=== PATIENT | female | born 1990 | race Native Hawaiian/Other Pacific Islander ===

== ENCOUNTER → 2018-09-23 13:13 | Outpatient (CLI) | payer OTHER, SELFPAY ==
[2018-09-23 14:04] LABS: HCG Quantitative /Beta subunit 186.61 mIU/mL
== END ==
PROVIDERS: PCP Family Medicine; Visit Provider Family Medicine
DX: N91.2 Amenorrhea, unspecified (principal)
CPT/HCPCS: 36415; 84702

== ENCOUNTER → 2018-09-26 07:09 | Outpatient (CLI) | payer OTHER, SELFPAY ==
[2018-09-26 09:05] LABS: HCG Quantitative /Beta subunit 627.81 mIU/mL
== END ==
PROVIDERS: PCP Family Medicine; Visit Provider Family Medicine
DX: N91.2 Amenorrhea, unspecified (principal)
CPT/HCPCS: 36415; 84702

== ENCOUNTER → 2018-10-19 17:07 | Outpatient (CLI) | payer OTHER, SELFPAY ==
[2018-10-19 18:38] LABS: Add Manual Diff / Slide Review NO; Basophils Absolute Auto 0 /uL (0-100); Basophils Percent Auto 0.5 % (0-2); Eosinophils Absolute Auto 200 /uL (0-450); Eosinophils Percent Auto 2.2 % (2-4); Hematocrit 40.5 % (36-46); Hemoglobin 13.5 g/dL (12.0-16.0); Lymphocytes Absolute Auto 2300 /uL (1100-4500); Lymphocytes Percent Auto 24.8 % (25-40); Mean Corpuscular HGB Conc 33.2 % (30-36); Mean Corpuscular Hemoglobin 30.5 PG (26-34); Mean Corpuscular Volume 91.8 fL (80-100); Monocytes Absolute Auto 600 /uL (0-900); Monocytes Percent Auto 6.8 % (3-14); Neutrophils Absolute Auto 6000 /uL (1500-7000); Neutrophils Percent Auto 65.7 % (50-75); Platelet Count 325 X10^3/uL (150-400); Red Blood Cell Count 4.41 X10^6/uL (4.0-5.2); White Blood Cell Count 9.1 X10^3/uL (4.5-11.0)
[2018-10-19 18:43] LABS: Hepatitis B Surface Antigen NEGATIVE s/c (NEGATIVE); Rubella Antibody IgG 32.8 IU/mL (>15)
[2018-10-19 18:50] LABS: Appearance Urine UA CLEAR; Bilirubin Urine UA NEGATIVE (NEGATIVE); Color Urine UA YELLOW; Glucose Urine UA NEGATIVE (Negative); Ketones Urine UA NEGATIVE (NEGATIVE); Leukocyte Esterase Urine UA NEGATIVE (NEGATIVE); Nitrite Urine UA NEGATIVE (Negative); Occult Blood Urine UA NEGATIVE (Negative); Protein Urine UA NEGATIVE (Negative); Specific Gravity Urine UA <=1.005 (1.000-1.035); Urobilinogen Urine UA 0.2 E.U./dL (0.2)
[2018-10-19 19:00] LABS: HIV 1 and 2 Antibody NEGATIVE (NEGATIVE); Hep C Virus Ab w/Reflex Quant NEGATIVE s/c (NEGATIVE)
[2018-10-21 11:18] LABS: RPR Screen Nonreactive (Nonreactive)
== END ==
PROVIDERS: PCP Family Medicine; Visit Provider Family Medicine
DX: Z34.91 Encounter for supervision of normal pregnancy, unspecified, first trimester (principal)
CPT/HCPCS: 36415; 80055; 81003; 86703; 86787; 86803; 86850; 86900; 86901; 87086

== ENCOUNTER 2018-12-05 18:23 | Emergency (ER) | payer OTHER, SELFPAY ==
[2018-12-05 18:40] VITALS: BP 130/82; PULSE 89; RESP 18; O2SAT 98
[2018-12-05 19:24] LABS: Bacteria Urine Few (2-10); Culture Indicated Urine Specimen Cultured; Mucus Urine 2+ (Negative); RBC Urine 0-1/HPF (0-5/HPF); Squamous Epithelial Cell Urine 5-10 /HPF; WBC Urine 1-5/HPF (0-5/HPF)
[2018-12-05 19:32] LABS: Influenza A and B by PCR Rapid Negative (Negative)
--- NOTE | 2018-12-05 20:58 | ED_ITS ---
HPI - Nausea/Vomiting/Diarrhea General Chief complaint: Nausea/Vomiting/Diarrhea Stated complaint: 15 WKS NOT EATING VOMITING ABD PAIN Time Seen by Provider: 12/05/18 20:49 Source: patient Mode of arrival: ambulatory Limitations: no limitations History of Present Illness HPI Narrative: Fifteen is a 15 week EGA has had an uncomplicated up to this point. Approximately 1 week ago started having a decrease in appetite. Has had occasional nausea but no vomiting. Has Zofran at home. Returns today because she has not been drinking anything. She states it is not because of nausea or vomiting but because she has no appetite. Is having some cramping however no vaginal bleeding or loss of fluid. No fevers. No abdominal pain. Related Data Home Medications Medication Instructions Recorded Confirmed 1 tab PO DAILY 10/19/18 12/05/18 vitamin,calcium,jxcmwrwz-nldy-rsage acid tablet Previous Rx's Medication Instructions Recorded ondansetron 8 mg disintegrating 8 mg PO BID-TID PRN #12 tab 11/08/18 tablet Allergies Allergy/AdvReac Type Severity Reaction Status Date / Time No Known Drug Allergies Allergy Verified 12/05/18 18:46 Review of Systems Constitutional Denies fever(s) and Denies headache(s) ENT Ears, Nose, Mouth, and Throat: Denies vertigo and Denies headache(s) Cardiovascular Denies chest pain and Denies dyspnea Respiratory Denies dyspnea Gastrointestinal Gastrointestinal: Denies change in stool character, Reports cramping, Denies diarrhea, Denies nausea and Denies vomiting Comments: Decreased in appetite Genitourinary Denies dysuria, Denies pelvic pain, Denies urinary urgency and Denies vaginal discharge Integumentary/Breasts Denies rash Neurologic Denies vertigo and Denies headache(s) Hematologic/Lymphatic Denies easy bleeding and Denies easy bruising [facility] Medical History Healthy adult (Acute) Social History Smoking Status: Never smoker Social History Smoking Status: Never smoker Exam Initial Vital Signs Initial Vital Signs: Vital Signs Pulse Rate 89 12/05/18 18:40 Respiratory Rate 18 12/05/18 18:40 Blood Pressure 130/82 12/05/18 18:40 Pulse Oximetry 98 12/05/18 18:40 Const General: cooperative, healthy appearing, comfortable, well developed, well groomed and No acute distress Orientation: alert, awake and oriented x3 HENMT Head: normal to inspection and normocephalic Resp Effort & Inspection: normal respiratory effort Cardio Rate: regular rate Rhythm: regular rhythm GI Other: Gravid abdomen Skin Lesions: no lesions Rashes: no rashes Neuro General: alert, awake and oriented x3 Psych Appearance: grossly normal and well kempt Course Orders Ordered: ED Orders 12/05/18 19:00 Urine Culture Stat Urine Microscopic Stat 12/05/18 19:11 Influenza A and B by PCR Rapid Stat Discontinued Medications Sodium Chloride (Normal Saline 0.9%) 1,000 mls @ 1,000 mls/hr IV BOLUS ONE Stop: 12/05/18 22:22 Last Infusion: 12/05/18 22:54 Dose: 0 mls/hr Admin: 12/05/18 21:45 Dose: 1,000 mls/hr Vital Signs - 8 hr 12/05/18 22:41 Pulse Rate 73 Respiratory Rate 16 Blood Pressure [Right Arm] 113/69 Pulse Oximetry 100 MDM - Nausea/Vomiting/Diarrhea Lab Data Attestation: I reviewed the patient's lab results. Lab Results 12/05/18 12/05/18 Range/Units 19:00 19:11 Urine RBC 0-1/hpf (0-5/HPF) Urine WBC 1-5/hpf (0-5/HPF) Ur Squamous Epith Cells 5-10 /hpf H Urine Bacteria Few (2-10) H (None) Urine Mucus 2+ H (Negative) Ur Culture Indicated? Specimen cultured Influenza A & B (PCR) Negative (Negative) Urine Dip Bedside Urine Glucose Negative Bedside Urine Bilirubin + 1 Bedside Urine Ketone +++ 80 Urine Specific [place] 1.020 Bedside Urine Occult Blood - Negative Bedside Urine pH 6.0 Bedside Urine Protein +/- 15 Bedside Urine Urobilinogen - Negative Bedside Urine Nitrite - Negative Bedside Urine Leukocytes +/- 15 Esterase MDM Narrative Medical decision making narrative: Patient with a known IUP. No vaginal bl eeding. Stated that her cramping improved with fluids. She did have ketones in the urine which goes with dehydration. Patient has Zofran at home. Informed her that she needed to increase her fluid intake. Informed her she needs to take the Zofran for any nausea. Informed that she needed to contact her OB doctor for follow-up. She expressed understanding and agreement with plan. Discharge Plan Departure Patient Disposition: Home Clinical Impression: Dehydration, Nausea Qualifiers: Weeks of gestation: unspecified Qualified Code(s): Z34.90 - Encounter for supervision of normal , unspecified, unspecified trimester Discharge Date/Time: 12/05/18 22:55 Interventions: ED Discharge Assessment Last Done: 12/05/18 22:55 Instructions: DI for Dehydration -- Adult Activity Restrictions/Additional Instructions: Continue to increase your fluid intake. Contact your OB provider for a follow- up. Return to the emergency department for any new or worsening symptoms Prescriptions: No Action ondansetron 8 mg tablet,disintegrating 8 mg PO BID-TID PRN (Reason: nausea and vomiting) Qty: 12 RF: 0 prenat.vits,michele,lkx-mgif-lviwt tablet 1 tab PO DAILY RF: 0 Referrals: Vivi Crcokett MD [Primary Care Provider] -
[2018-12-05] MEDS: SODIUM CHLORIDE 0.9% 1,000 ML 1000 ML IV (21:45)
[2018-12-05 22:41] VITALS: BP 113/69; PULSE 73; RESP 16; O2SAT 100
== END 2018-12-05 22:55 | disposition home or self-care (01) ==
PROVIDERS: Emergency Provider Emergency Medicine; PCP Family Medicine
DX: E86.0 Dehydration (principal); R11.2 Nausea with vomiting, unspecified; Z34.92 Encounter for supervision of normal pregnancy, unspecified, second trimester; Z3A.15 15 weeks gestation of pregnancy
CPT/HCPCS: 81003; 81015; 87086; 87400; 96360; 99283

== ENCOUNTER → 2018-12-20 15:30 | Outpatient (CLI) | payer OTHER, SELFPAY ==
[2018-12-27 12:51] LABS: AFP, Serum 33.1 ng/mL; Calc Gestational Age 17.6; Cigarette Smoker NOT GIVEN; Donated Egg N; Donor Egg Age NOT GIVEN; Estriol, Free 0.88 ng/mL; Inhibin A, Dimeric 104 pg/mL; Maternal Ethnicity NOT GIVEN; Maternal Weight 156 lbs; Number of Fetuses 1; Previous Pregnancy Down Syndro N; hCG, MoM 1.27; hCG, Serum 31.8 IU/mL
== END ==
PROVIDERS: PCP Family Medicine; Visit Provider Family Medicine
DX: Z34.02 Encounter for supervision of normal first pregnancy, second trimester (principal); Z3A.17 17 weeks gestation of pregnancy
CPT/HCPCS: 36415; 82105; 82677; 84702; 86336

== ENCOUNTER → 2019-01-09 15:00 | Outpatient (CLI) | payer OTHER, SELFPAY ==
--- NOTE | 2019-01-09 15:01 | DI.US.S_ITS ---
PROCEDURE: US OB >= 14 WEEKS FETUS INDICATIONS: ANATOMY SCAN OUTSIDE/PRIOR DATING DATA: Last menstrual period (LMP): 08/19/19. LMP-based estimated date of delivery (DEBBIE): 05/26/19. First dating scan (date and location): 10/25/18 performed at [facility]. Estimated date of delivery (DEBBIE) from first dating scan: 05/26/19. TECHNIQUE: Real-time scanning was performed of the fetus, with image documentation and biometric measurements. Endovaginal scanning: No [facility], 10:46. FINDINGS: General: A single living intrauterine gestation is present. Presentation: Transverse. Placenta: Placental position is anterior, and low lying with the inferior margin roughly 2.6 cm above the internal cervical os Amniotic fluid index: 15.7 cm, normal range is 5-24 cm. heart rate: 158 beats per minute. Maternal cervical canal: 3.4 cm long. Normal lower limit is 2.5 cm. biometrics: Biparietal diameter: 20 weeks 5 days Head circumference: 20 weeks 3 days Abdominal circumference: 21 weeks Femur length: 20 weeks 0 days Estimated gestational age from initial scan: 20 weeks 3 days Composite gestational age from present scan: 20 weeks 4 days Estimated weight and percentile: 372 g; 61st percentile Measurement variability for biometric dating: +/- 7 days from 14 weeks to 15 weeks 6 days gestation, +/- 10 days from 16 weeks to 21 weeks 6 days gestation, +/- 2 weeks from 22 weeks to 27 weeks 6 days gestation, +/- 3 weeks for 28 weeks gestation or later. weight reference: 4500 g or EFW >90/95% is considered macrosomia or large for gestational age. EFW <10% is small for gestational age. EFW 5% or less is considered intra-uterine growth restriction. Anatomic survey: Neuro: Ventricles are non-dilated at less than 10 mm. Cisterna magna is normal at 3-11 mm. Cerebellum is normal in size and morphology. Nuchal skin fold: Normal at less than 6 mm between 14-21 weeks gestational age. Face: Nose and lips, facial profile are normal. Spine: No evidence for spina bifida. Heart: 4-chambered heart is present, with normal ventricular outflow tracts. Diaphragm: Diaphragm is intact. Stomach: Left-sided stomach is present. Kidneys: No hydronephrosis. Normal is less than 5 mm in 2nd trimester, less than 7 mm in 3rd trimester. Cord: 3-vessel cord has orthotopic insertion. Bladder: Normal in size. Extremities: All 4 extremities identified. IMPRESSION: 1. Single living IUP redemonstrated and interval growth is normal 2. Normal anatomic survey. 3. Low lying placenta. Followup recommended. Dictated by: Aubrey Torres [facility] Interpreted: Angeles Handy MD on 01/09/2019 at 16:43 Approved by: Angeles Handy MD, PhD on 01/09/2019 at 18:40
== END ==
PROVIDERS: PCP Family Medicine; Visit Provider Family Medicine
DX: Z34.01 Encounter for supervision of normal first pregnancy, first trimester (principal); Z3A.20 20 weeks gestation of pregnancy
CPT/HCPCS: 76811

== ENCOUNTER → 2019-02-28 15:20 | Outpatient (CLI) | payer OTHER, SELFPAY ==
[2019-02-28 17:23] LABS: Hematocrit 37.5 % (36-46); Hemoglobin 12.4 g/dL (12.0-16.0)
[2019-02-28 17:49] LABS: GTT (PREG) 1 Hour PP 50gm Dose 109 mg/dL (76-139)
== END ==
PROVIDERS: PCP Family Medicine; Visit Provider Family Medicine
DX: Z34.02 Encounter for supervision of normal first pregnancy, second trimester (principal); Z3A.25 25 weeks gestation of pregnancy
CPT/HCPCS: 36415; 82950; 85014; 85018

== ENCOUNTER 2019-03-13 13:24 | Outpatient (CLI) | payer OTHER, SELFPAY ==
[2019-03-13 14:05] LABS: RBC Urine None Seen (0-5/HPF)
[2019-03-13 14:15] LABS: Appearance Urine UA CLEAR; Bilirubin Urine UA NEGATIVE (NEGATIVE); Color Urine UA YELLOW; Glucose Urine UA NEGATIVE (Negative); Ketones Urine UA NEGATIVE (NEGATIVE); Leukocyte Esterase Urine UA 2+ (NEGATIVE); Nitrite Urine UA NEGATIVE (Negative); Occult Blood Urine UA NEGATIVE (Negative); Protein Urine UA NEGATIVE (Negative); Urobilinogen Urine UA 0.2 E.U./dL (0.2)
[2019-03-13 14:28] LABS: Squamous Epithelial Cell Urine 1-5 /HPF (0-5/HPF); WBC Urine 1-5/HPF (0-5/HPF)
[2019-03-13 14:29] LABS: Bacteria Urine Few (2-10); Culture Indicated Urine Specimen Cultured
--- NOTE | 2019-03-13 14:51 | PM.OBTRLD ---
Visit Information Visit Information Date of evaluation: 03/13/19 Primary OB Provider: Vivi Crockett Reason for Evaluation: Yes pre-term labor and Yes rule out labor Comments/Additional reasons for admission: Pt with persistent cramping for the last 24hrs. Initially intermittent, now more constant. No vaginal bleeding, LOF. PFSH Social History Smoking Status: Never smoker Social History Smoking Status: Never smoker Objective Labs Labs: Laboratory Results - last 24 hr 03/13/19 13:40 Urine Color Yellow Urine Appearance Clear Urine pH 7.0 Ur Specific [place] 1.010 Urine Protein Negative Urine Glucose (UA) Negative Urine Ketones Negative Urine Occult Blood Negative Urine Nitrate Negative Urine Bilirubin Negative Urine Urobilinogen 0.2 Ur Leukocyte Esterase 2+ H Urine RBC None seen Urine WBC 1-5/hpf Ur Squamous Epith Cells 1-5 /hpf Urine Bacteria Few (2-10) H Ur Culture Indicated? Specimen cultured Evaluation Evaluation Baseline heart rate: 150 Variability: Moderate (11-25) monitor accelerations: Present monitor decelerations: Absent Category of Tracing: I Laboratory results: Laboratory Tests 03/13/19 13:40 Urine Color Yellow Urine Appearance Clear Urine pH 7.0 Ur Specific [place] 1.010 Urine Protein Negative Urine Glucose (UA) Negative Urine Ketones Negative Urine Occult Blood Negative Urine Nitrate Negative Urine Bilirubin Negative Urine Urobilinogen 0.2 Ur Leukocyte Esterase 2+ H Urine RBC None seen Urine WBC 1-5/hpf Ur Squamous Epith Cells 1-5 /hpf Urine Bacteria Few (2-10) H Ur Culture Indicated? Specimen cultured Diagnosis, Plan/Disposition Final Diagnosis (1) Cramping affecting , antepartum: Current Visit: No Status: Acute (2) UTI (urinary tract infection): Current Visit: No Status: Acute Plan/Disposition Plan: Possible UTI on U/A. Due to symptoms, will treat empirically with Nitrofurantoin. Most likely cause of cramping. No contractions on monitoring. FHT reassuring. Stable for d/c home. OB Disposition: home
== END 2019-03-13 14:58 | disposition home or self-care (01) ==
LOC: LABOR 14:29 → OB 03-20 16:23
PROVIDERS: PCP Family Medicine; Visit Provider Obstetrics & Gynecology
DX: O26.893 Other specified pregnancy related conditions, third trimester (principal); R10.9 Unspecified abdominal pain; N39.0 Urinary tract infection, site not specified; Z3A.29 29 weeks gestation of pregnancy
CPT/HCPCS: 59025; 81001; 87077; 87086; G0378; G0379

== ENCOUNTER → 2019-04-03 10:14 | Outpatient (CLI) | payer OTHER, SELFPAY ==
--- NOTE | 2019-04-03 10:15 | DI.US.S_ITS ---
PROCEDURE: US OB LIMITED INDICATIONS: low lying placenta OUTSIDE/PRIOR DATING DATA: Last menstrual period (LMP): 08/19/19. LMP-based estimated date of delivery (DEBBIE): 05/26/19. First dating scan (date and location): 10/25/18. Estimated date of delivery (DEBBIE) from first dating scan: 05/25/19. TECHNIQUE: Real-time scanning was performed of the fetus, with image documentation. Endovaginal scanning: Not necessary for this study COMPARISON: None. FINDINGS: A single living intrauterine gestation is present. Presentation: Vertex. Placenta: Placental position is anterior, without previa. Lower placental edge 0.5 to 3 cm from internal cervical os qualifies as low lying placenta. Marginal previa is defined as lower edge 0 to 0.5 mm from internal os. Amniotic fluid index: 12.0 cm, normal range is 5-24 cm. heart rate: 149 beats per minute. Maternal cervical canal: 3.3 cm long. Normal lower limit is 2.5 cm. IMPRESSION: Placental tip is 4.5 cm from the internal os and cervical canal. Current presentation is vertex. No anomaly seen. Dictated by: Dashawn Morales M.D. on 04/03/2019 at 12:26 Approved by: Dashawn Morales M.D. on 04/03/2019 at 12:28
== END ==
PROVIDERS: PCP Family Medicine; Visit Provider Family Medicine
DX: O44.43 Low lying placenta NOS or without hemorrhage, third trimester (principal); Z3A.32 32 weeks gestation of pregnancy
CPT/HCPCS: 76815

== ENCOUNTER → 2019-04-27 12:27 | Outpatient (CLI) | payer OTHER, SELFPAY ==
[2019-04-28 12:37] LABS: Strep Grp B PCR NEG for Grp B Strep
== END ==
PROVIDERS: PCP Family Medicine; Visit Provider Family Medicine
DX: Z3A.36 36 weeks gestation of pregnancy (principal)
CPT/HCPCS: 87653

== ENCOUNTER 2019-06-01 06:11 | Inpatient (IN) | payer OTHER, SELFPAY ==
--- NOTE | 2019-06-01 07:32 | P.HP_ITS ---
History of Present Illness History of Present Illness Date Patient Seen: 06/01/19 Time Patient Seen: 07:32 Chief complaint: Labor Narrative: Patient is a 29-year-old G1 para 0 patient is here with her [facility] [place]. Patient has a final estimated due date of 05/26/2019 consistent with LMP and early ultrasound. Patient establish care at 9 weeks and had routine follow-up. Patient had a total weight gain of approximately 30 lb during . 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 Patient has been on acyclovir since 30/6 weeks. laboratory testing shows O-positive blood type antibody screen negative hematocrit 40.5 hemoglobin 13.5 platelet count 235 ER L nonreactive urine culture negative hepatitis-B surface antigen negative HIV negative rubella immune hep C negative varicella immune inject it testing early on was negative. Twenty week ultrasound shows intrauterine with low-lying placenta which is resolved. GBS status is negative at 36 weeks. Patient has been having intermittent contractions and cramping for the last week. Last cervical exam in the office showed her to be 2 cm 70% effaced -2 station mid soft. She has no complaints of headache dizziness fevers or chills. Patient has no concerns with vaginal lesions or outbreaks. No headaches. Mild swelling. Patient History Medical History Healthy adult (Acute) Social History Smoking Status: Never smoker Family & Social History Tobacco & Substance use: Smoking Status Never smoker alcohol intake frequency other Substance Use Type does not use Meds Home Medications and Allergies Home Medications Medication Instructions Recorded Confirmed Type prenat.vits,michele,elr-xbzt-hvgwm 1 tab PO DAILY 10/19/18 05/30/19 History acyclovir 400 mg tablet 400 mg PO BID #60 tab 03/30/19 05/30/19 Rx Breast pump #1 ea 04/27/19 05/30/19 Rx Allergies Allergy/AdvReac Type Severity Reaction Status Date / Time No Known Drug Allergies Allergy Verified 05/30/19 10:43 Exam Vital Signs (past 8 hours): . General: Alert no apparent distress. Affect is appropriate. Olegario it is uncomfortable. HEENT: Neck is supple without lymphadenopathy pupils equal round and reactive. Cardio: S1-S2 regular rate and rhythm. Respiratory: Lungs clear to auscultation. Abdomen: Gravid. Extremities: Normal deep tendon reflexes trace edema. [place]: Intermittent contractions heart tones: Category 1 heart tones 140 Assessment & Plan Assessment & Plan narrative: 29-year-old female G1 para 0 estimated due date of 05/26/2019 which puts her at 40 and 4 7 weeks for induction of labor. Induction consent form was obtained and signed. Discussed risks and complications of labor induction in a prime up. Which include increased risk of operative delivery. Due to her favor ability of her [place] score. Patient will be and cyst with Pitocin. Pitocin complications and risks were reviewed with the patient. Induction orders were written for. Patient laboratory tests were drawn. Consents were signed. Proceed with labor induction.
[2019-06-01 09:35] LABS: Add Manual Diff / Slide Review NO; Basophils Absolute Auto 0 /uL (0-100); Basophils Percent Auto 0.5 % (0-2); Eosinophils Absolute Auto 100 /uL (0-450); Eosinophils Percent Auto 1.4 % (2-4); Hematocrit 39.2 % (36-46); Lymphocytes Absolute Auto 1800 /uL (1100-4500); Mean Corpuscular HGB Conc 33.3 % (30-36); Mean Corpuscular Hemoglobin 30.5 PG (26-34); Mean Corpuscular Volume 91.7 fL (80-100); Monocytes Absolute Auto 900 /uL (0-900); Monocytes Percent Auto 8.3 % (3-14); Neutrophils Absolute Auto 7500 /uL (1500-7000); Neutrophils Percent Auto 72.8 % (50-75); Platelet Count 217 X10^3/uL (150-400); Red Blood Cell Count 4.27 X10^6/uL (4.0-5.2); Red Cell Distribution Width 13.8 % (11.6-14.8); White Blood Cell Count 10.3 X10^3/uL (4.5-11.0)
[2019-06-01] MEDS: LACTATED RINGERS 1,000 ML 100 ML IV ×2 (09:45→16:41)
[2019-06-01] MEDS: OXYTOCIN PREMIX 30 UNIT/500 ML PLAST..BAG IV (09:45)
--- NOTE | 2019-06-01 11:24 | PM.PN.1 ---
Subjective Subjective Date Patient Seen: 06/01/19 Time Patient Seen: 11:24 Interval history: Patient seen and evaluated doing well. On the birthing ball. 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 On 9 units of Pitocin. No leakage of fluid. No amniotomy yet. Vital signs are stable. Contractions are mildly uncomfortable. Objective Labs Result Diagrams: 06/01/19 09:20 Labs: Laboratory Results - last 24 hr 06/01/19 06/01/19 09:20 09:20 WBC 10.3 RBC 4.27 Hgb 13.0 Hct 39.2 MCV 91.7 MCH 30.5 MCHC 33.3 RDW 13.8 Plt Count 217 Neut % (Auto) 72.8 Lymph % (Auto) 17.0 L [place] % (Auto) 8.3 Eos % (Auto) 1.4 L Baso % (Auto) 0.5 Neut # (Auto) 7500 H Lymph # (Auto) 1800 [place] # (Auto) 900 Eos # (Auto) 100 Baso # (Auto) 0 Blood Type O Positive Antibody Screen Negative
[2019-06-01 12:00] VITALS: BP 115/74
--- NOTE | 2019-06-01 13:37 | P.PN_ITS ---
Subjective Subjective Date Patient Seen: 06/01/19 Time Patient Seen: 13:37 Interval history: Patient seen and evaluated few times. Patient evaluated at 12:15 p.m. category 1 tracing. 3-4 cm. 80% effaced -1 station mid position. Had amniotomy of clear fluid without difficulty. Patient's vital signs are stable. Olegario on Pitocin. Re-evaluation at 1:30 a.m.. Patient is doing well uncomfortable. Still leaking fluids. heart tracing category 1. Vital signs normal temperature afebrile. Contemplating epidural versus fentanyl for pain control. Exam Vital Signs (past 8 hours): - 06/01/19 12:00 Blood Pressure 115/74 Objective Labs Result Diagrams: 06/01/19 09:20 Labs: Laboratory Results - last 24 hr 06/01/19 06/01/19 09:20 09:20 WBC 10.3 RBC 4.27 Hgb 13.0 Hct 39.2 MCV 91.7 MCH 30.5 MCHC 33.3 RDW 13.8 Plt Count 217 Neut % (Auto) 72.8 Lymph % (Auto) 17.0 L [place] % (Auto) 8.3 Eos % (Auto) 1.4 L Baso % (Auto) 0.5 Neut # (Auto) 7500 H Lymph # (Auto) 1800 [place] # (Auto) 900 Eos # (Auto) 100 Baso # (Auto) 0 Blood Type O Positive Antibody Screen Negative
[2019-06-01 15:29] VITALS: TEMP 36.6
[2019-06-01] MEDS: fentaNYL 100 MCG/2 ML INJ 50 MCG IV (15:29)
--- NOTE | 2019-06-01 17:10 | P.PN_ITS ---
Subjective Subjective Date Patient Seen: 06/01/19 Time Patient Seen: 17:10 Interval history: Labor progress update. Patient is doing well. Had a dose of fentanyl. Provided mild relief. Patient became more uncomfortable. Epidural was provided. Vital signs are stable afebrile on mom. heart tones category 1 tracing. Olegario well. 8 units of pit. Recent cervical exam for and 0.5 cm -1 station Exam Vital Signs (past 8 hours): - 06/01/19 12:00 06/01/19 15:29 Temperature 97.9 F Blood Pressure 115/74 Objective Labs Result Diagrams: 06/01/19 09:20 Labs: Laboratory Results - last 24 hr 06/01/19 06/01/19 09:20 09:20 WBC 10.3 RBC 4.27 Hgb 13.0 Hct 39.2 MCV 91.7 MCH 30.5 MCHC 33.3 RDW 13.8 Plt Count 217 Neut % (Auto) 72.8 Lymph % (Auto) 17.[address] [place] % (Auto) 8.3 Eos % (Auto) 1.4 L Baso % (Auto) 0.5 Neut # (Auto) 7500 H Lymph # (Auto) 1800 [place] # (Auto) 900 Eos # (Auto) 100 Baso # (Auto) 0 Blood Type O Positive Antibody Screen Negative
--- NOTE | 2019-06-01 19:53 | PM.PN.1 ---
Subjective Subjective Date Patient Seen: 06/01/19 Time Patient Seen: 19:28 Interval history: Patient complete. Could comfortable. Just had a rib will assess of epidural. Vital signs are stable. Afebrile. Patient anne marie. On 3 M use of Pitocin. Category 1 tracing. heart rate 130. Clear amniotic fluid. Jason catheter in place. Trial of pushing. Continue with expectant management. Exam Vital Signs (past 8 hours): - 06/01/19 12:00 06/01/19 15:29 Temperature 97.9 F Blood Pressure 115/74 Objective Labs Result Diagrams: 06/01/19 09:20 Labs: Laboratory Results - last 24 hr 06/01/19 06/01/19 09:20 09:20 WBC 10.3 RBC 4.27 Hgb 13.0 Hct 39.2 MCV 91.7 MCH 30.5 MCHC 33.3 RDW 13.8 Plt Count 217 Neut % (Auto) 72.8 Lymph % (Auto) 17.0 L [place] % (Auto) 8.3 Eos % (Auto) 1.4 L Baso % (Auto) 0.5 Neut # (Auto) 7500 H Lymph # (Auto) 1800 [place] # (Auto) 900 Eos # (Auto) 100 Baso # (Auto) 0 Blood Type O Positive Antibody Screen Negative
[2019-06-01] MEDS: LIDOCAINE 1% 20 ML (22:05)
--- NOTE | 2019-06-01 22:15 | P.PCN_ITS ---
Procedures Date/Time Date of procedure: 06/01/19 Time of procedure: 22:15 General Procedure description: Stage I of labor approximately 11 hours. Patient was brought of the hospital at 41 weeks gestational age for induction of labor. Patient had Pitocin augmentation. She had a good contraction pattern she had amniotomy at 3 cm with clear fluid. Patient received an epidural at 4.5 cm. And patient became complete at approximately 7:30 p.m.. Patient during stage I of labor had adequate contractions. Good progressed through stage I category 1 tracing. There was 1 small episode of pseudo sinus side all pattern. Which was changed with Pitocin reduction and position changes. Mom received a dose of fentanyl during the labor process. And eventually received an epidural. She had good anesthesia results with epidural. Stage II labor 2 hours and 10 minutes approximately. His stage 1 at the time of pushing with good progression doing stage II of labor. Patient had category 1 heart tracings throughout. Mom pushed to deliver a viable male over intact perineum. Baby was born in the occiput anterior position. There was no nuchal cord. There is easily delivery of the shoulders and body. Time of delivery baby was placed on mother's abdomen. Did delayed cord clamping. Baby was vigorous and crying. Apgars were 9 and 9. Stage III approximately 5 minutes. Delivery of intact placenta with three- vessel cord. Repair of first-degree midline perineal tear without complication in the usual fashion. Afterwards mom and baby were resting comfortably estimated blood loss 250 cc.
[2019-06-01 23:44] VITALS: TEMP 37.2
[2019-06-01] MEDS: IBUPROFEN 600 MG TABLET PO (23:44)
[2019-06-02] MEDS: HYDROCODONE/ACET 5/325 TABLET 1 TAB PO ×5 (03:08→21:22)
[2019-06-02] MEDS: IBUPROFEN 600 MG TABLET PO ×3 (06:35→19:19)
[2019-06-02 06:54] LABS: Hematocrit 31.3 % (36-46); Hemoglobin 10.7 g/dL (12.0-16.0)
--- NOTE | 2019-06-02 08:23 | P.PN_ITS ---
Subjective Subjective Date Patient Seen: 06/02/19 Time Patient Seen: 08:23 Interval history: day 1. 29-year-old status post vaginal delivery doing well. Hemoglobin hematocrit are stable. Vital signs are stable. Patient is eating. Ambulating positive urination no bowel movements pain is well controlled. Breast-feeding. Exam Narrative Exam Narrative: General: Alert no apparent distress. Affect is appropriate. Olegario it is uncomfortable. HEENT: Neck is supple without lymphadenopathy pupils equal round and reactive. Cardio: S1-S2 regular rate and rhythm. Respiratory: Lungs clear to auscultation. Abdomen: Uterus firm. Extremities: Normal deep tendon reflexes trace edema. Objective Labs Result Diagrams: 06/02/19 06:36 Labs: Laboratory Results - last 24 hr 06/01/19 06/01/19 06/02/19 09:20 09:20 06:36 WBC 10.3 RBC 4.27 Hgb 13.0 10.7 L Hct 39.2 31.3 L MCV 91.7 MCH 30.5 MCHC 33.3 RDW 13.8 Plt Count 217 Neut % (Auto) 72.8 Lymph % (Auto) 17.0 L [place] % (Auto) 8.3 Eos % (Auto) 1.4 L Baso % (Auto) 0.5 Neut # (Auto) 7500 H Lymph # (Auto) 1800 [place] # (Auto) 900 Eos # (Auto) 100 Baso # (Auto) 0 Blood Type O Positive Antibody Screen Negative Assessment & Plan Assessment & Plan narrative: day 1. Vaginal delivery Ambulating Eating Positive bowel movements Breast-feeding Pain is well controlled as well as bleeding hemoglobin hematocrit stable.
[2019-06-02] MEDS: DOCUSATE 250 MG CAPSULE PO (09:46)
[2019-06-02] MEDS: PRENATAL VIT,CALC/IRON/FOLIC 1 TABLET 1 TAB PO (09:46)
[2019-06-02] MEDS: ACYCLOVIR 400 MG TABLET PO ×2 (09:47→21:22)
[2019-06-03] MEDS: IBUPROFEN 600 MG TABLET PO ×2 (01:04→07:18)
[2019-06-03] MEDS: HYDROCODONE/ACET 5/325 TABLET 1 TAB PO ×3 (01:05→09:46)
[2019-06-03] MEDS: PRENATAL VIT,CALC/IRON/FOLIC 1 TABLET 1 TAB PO (09:45)
[2019-06-03] MEDS: DOCUSATE 250 MG CAPSULE PO (09:46)
[2019-06-03] MEDS: ACYCLOVIR 400 MG TABLET PO (09:46)
--- NOTE | 2019-06-03 09:47 | PM.DS.1 ---
History of Present Illness History of Present Illness Chief complaint: maternity Narrative: Patient is a 29-year-old G1 para 0 patient is here with her partner in the Center. Patient has a final estimated due date of 05/26/2019 consistent with LMP and early ultrasound. Patient establish care at 9 weeks and had routine follow-up. Patient had a total weight gain of approximately 30 lb during . 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 Patient has been on acyclovir since 30/6 weeks. laboratory testing shows O-positive blood type antibody screen negative hematocrit 40.5 hemoglobin 13.5 platelet count 235 ER L nonreactive urine culture negative hepatitis-B surface antigen negative HIV negative rubella immune hep C negative varicella immune inject it testing early on was negative. Twenty week ultrasound shows intrauterine with low-lying placenta which is resolved. GBS status is negative at 36 weeks. Patient has been having intermittent contractions and cramping for the last week. Last cervical exam in the office showed her to be 2 cm 70% effaced -2 station mid soft. She has no complaints of headache dizziness fevers or chills. Patient has no concerns with vaginal lesions or outbreaks. No headaches. Mild swelling. Discharge Providers Provider Date of admission: 06/01/19 06:11 Discharge Date: 06/03/19 Primary care physician: Vivi Crockett MD Consults: 06/01/19 23:03 Consult to Public Relations Senior Associate Routine Comment: Discharge provider: Castro Li MD Summary Hospital Course Discharge Diagnosis: 29-year-old G1 para 1 with delivery of viable male vaginally without complications Induction of labor Hospital Course: Patient was admitted to the hospital for induction of labor. She was almost 41 weeks gestational age. She had induction with Pitocin. Went on to deliver vaginally a male infant. Apgars 9 and 9 weight 8 lb 4 oz. day 1. Patient was eating ambulating normal urination. Patient's bleeding and pain were well controlled. day 2. Breast-feeding was going okay. Urination and pain was well controlled bleeding was normal. Patient had no signs of lower extremity calf tenderness. Patient was afebrile and vital signs were stable. Exam Narrative Exam Narrative: Vitals: [Pulse 68 respiratory rate 18 temperature 9 8.8 input 2400 output 1800]. General: Alert no apparent distress. Affect is appropriate. Olegario it is uncomfortable. HEENT: Neck is supple without lymphadenopathy pupils equal round and reactive. Cardio: S1-S2 regular rate and rhythm. Respiratory: Lungs clear to auscultation. Abdomen: Uterus firm. Incision clean dry and intact. Extremities: Normal deep tendon reflexes trace edema. Objective Labs Result Diagrams: 06/02/19 06:36 Discharge Plan Discharge Plan Patient Disposition: Home Discharge Med Rec/Prescriptions Prescriptions: New ibuprofen 600 mg Tablet 600 mg PO Q6HR PRN (Reason: Pain, Mild (1-3)) Qty: 30 RF: 0 docusate sodium 250 mg Capsule 250 mg PO DAILY Qty: 20 RF: 0 Continued acyclovir 400 mg tablet 400 mg PO BID Qty: 60 RF: 2 (DME) Breast pump Qty: 1 RF: 0 prenat.vits,michele,nag-iune-zmura tablet 1 tab PO DAILY RF: 0 Follow up/Referrals: Vivi Crockett MD [Primary Care Provider] - Visit Report/Discharge Packet Visit Report Forms: Stroke Signs & Symptoms Discharge Data Primary Care Provider: Vivi Crockett
[2019-06-03 11:47] VITALS: BP 107/60; PULSE 80; RESP 17; TEMP 37
== END 2019-06-03 13:15 | disposition home or self-care (01) | DRG 807 ==
PROVIDERS: Family Medicine; Admitting Provider Family Medicine; PCP Family Medicine; Visit Provider Family Medicine
DX: O98.32 Other infections with a predominantly sexual mode of transmission complicating childbirth (principal); Z37.0 Single live birth; Z3A.40 40 weeks gestation of pregnancy; B00.9 Herpesviral infection, unspecified; O70.0 First degree perineal laceration during delivery
CPT/HCPCS: 01967; 36415; 59050; 59400; 59409; 85014; 85018; 85025; 86850; 86900; 86901; G0379; J2590; J3010

== ENCOUNTER 2019-11-04 08:14 | Emergency (ER) | payer OTHER, SELFPAY ==
[2019-11-04 08:14] VITALS: BP 127/78; PULSE 93; RESP 16; TEMP 36.9; O2SAT 100; BMI 27.6
--- NOTE | 2019-11-04 08:17 | DI.RAD.S_ITS ---
PROCEDURE: XR FOREARM RT 2V INDICATIONS: dog bite TECHNIQUE: 2 views of the forearm were acquired. COMPARISON: None. FINDINGS: Bones: No fractures or dislocations. No suspicious bony lesions. Soft tissues: No suspicious soft tissue calcifications or masses. Mild soft tissue edema along the distal forearm is present. No radiopaque foreign bodies. IMPRESSION: No acute fractures of the left forearm. Dictated by: Koby West M.D. on 11/04/2019 at 7:44 Approved by: Koby West M.D. on 11/04/2019 at 7:45
[2019-11-04] MEDS: TET,DIPH,PERTUSS(ACELL),VAC/PF 0.5 ML SYRINGE IM (08:34)
--- NOTE | 2019-11-04 08:44 | ED.ANIMALBIT ---
HPI - Animal Bite General Chief Complaint: Extremity Injury, Upper Stated Complaint: dog bite left wrist Time Seen by Provider: 11/04/19 08:15 Source: patient Mode of arrival: Ambulatory Limitations: no limitations History of Present Illness HPI narrative: 29F non smoker without contributory medical history presents with a family friend in the chief complaint of dog bite to her left forearm. Her 2 dogs were fighting and she attempted to separate them when she was bitten on her left forearm by a 70 lb pit bull. As mentioned both dogs are hers, fully immunized and able to be observed. She has minimal bleeding and pain with movement. MD complaint: animal bite Onset (ago): minute(s) Animal: dog Description of animal: household pet Mechanism: bite Pain description: sharp and dull Context: animals fighting Associated symptoms: erythema and bleeding Treatments prior to arrival: wound dressing(s) Related Data Patient tetanus UTD: No Home Medications Medication Instructions Recorded Confirmed prenat.vits,michele,fol-zccz-nomxf 1 tab PO DAILY 10/19/18 07/18/19 Previous Rx's Medication Instructions Recorded amoxicillin-pot clavulanate 1 tab PO BID #20 tab 11/04/19 [Augmentin] Allergies Allergy/AdvReac Type Severity Reaction Status Date / Time No Known Drug Allergies Allergy Verified 11/04/19 08:23 Review of Systems Constitutional Constitutional: Denies chills, Denies fatigue, Denies fever(s), Denies frequent falls, Denies lethargy and Denies weakness Eyes Eyes: Denies change in vision, Denies eye discharge, Denies irritation and Denies loss of vision ENT Ears, Nose, Mouth, and Throat: Denies change in voice, Denies dizziness, Denies neck pain, Denies sore throat and Denies throat swelling Cardiovascular Cardiovascular: Denies chest pain, Denies irregular heart rhythm, Denies lightheadedness, Denies palpitations, Denies dyspnea, Denies dyspnea on exertion and Denies orthopnea Respiratory Respiratory: Denies cough, Denies dyspnea, Denies dyspnea on exertion and Denies wheezing Gastrointestinal Gastrointestinal: Denies abdominal pain, Denies change in bowel habits, Denies diarrhea, Denies nausea and Denies vomiting Genitourinary Genitourinary: Denies hematuria, Denies flank pain, Denies urinary incontinence and Denies urinary urgency Musculoskeletal Musculoskeletal: Denies back pain, Denies muscle weakness, Denies neck pain, Denies numbness and Denies tingling Integumentary/Breasts Skin/Breast: Denies pruritus, Denies erythema, Denies rash and Reports wounds Neurologic Neurologic: Denies behavioral changes, Denies confusion, Denies dizziness, Denies frequent falls, Denies loss of vision, Denies numbness, Denies tingling and Denies weakness Psychiatric Psychiatric: Denies anxiety, Denies behavioral changes, Denies confusion, Denies depression, Denies homicidal ideation and Denies suicidal ideation Endocrine Endocrine: Denies fatigue, Denies flushing and Denies palpitations Hematologic/Lymphatic Hematologic/Lymphatic: Denies easy bruising Allergic/Immunologic Allergic/Immunologic: Denies urticaria, Denies throat swelling and Denies wheezing Patient History Medical History Healthy adult (Acute) Social History Smoking Status: Never smoker Smoking Status: Never smoker alcohol intake frequency: other Substance Use Type: does not use Exam Narrative Exam Narrative: GEN: AOx3 and in mild distress EYES: Pupils are equal, round, and reactive to light and accommodation. Extraoccular muscles are intact bilaterally. There is no subconjunctival hemorrhage or exudate. CHEST: Lungs are clear to auscultation bilaterally and free of wheezes, rales, or rhonchi. Heart rate is regular rhythm, there are no murmurs, clicks, rubs, or gallops. There is no chest wall tenderness. ABD: Abdomen is soft and nontender. There is no guarding or rebound. Bowel sounds are normal in all 4 quadrants. There is no mass or organomegaly. EXT: Full painless ROM of all extremities with no loss of sensation or strength. SKIN: 5 1cm puncture wounds, minimal active bleeding. Each slightly agape with exposure of sub q fat. Single sutures for minimal wound closre. Warm, pink, and dry. No erythema or rash Initial Vital Signs Initial Vital Signs: Vital Signs Temperature 98.4 F 11/04/19 08:14 Pulse Rate 93 H 11/04/19 08:14 Respiratory Rate 16 11/04/19 08:14 Blood Pressure 127/78 11/04/19 08:14 Pulse Oximetry 100 11/04/19 08:14 Procedures Laceration Repair Laceration 1: Site: upper extremity Side (If applicable): left Size (cm): 1 Description: irregular Depth: simple, single layer Local Anesthetic: lidocaine 1% and with epi Amount of anesthesia used (mL): 3 Pre-repair: wound explored Skin layer closed with: nylon Size (cm): 5-0 Number of sutures: 5 Technique: simple, interrupted Course Orders Ordered: Discontinued Medications Hydrocodone Bitart/Acetaminophen ([place] 5/325) 1 tab PO NOW ONE Stop: 11/04/19 08:51 Last Admin: 11/04/19 09:41 Dose: 1 tab Documented by: JOSEPH Bacitracin (Bacitracin) 1 applic TOP NOW ONE Stop: 11/04/19 09:45 Last Admin: 11/04/19 09:50 Dose: 1 applic Documented by: JOSEPH Bupivacaine HCl/Epinephrine Bitart (Marcaine 0.25% W/ Epi (Pf)) 5 ml SUBCUT NOW ONE Stop: 11/04/19 08:51 Diphtheria/Tetanus/Acell Pertussis (Adacel) 0.5 ml IM .ONCE ONE Stop: 11/04/19 08:18 Last Admin: 11/04/19 08:34 Dose: 0.5 ml Documented by: JOSEPH Vital Signs Vital signs: Vital Signs - 8 hr 11/04/19 08:14 Temperature 98.4 F Pulse Rate 93 H Respiratory Rate 16 Blood Pressure 127/78 Pulse Oximetry 100 MDM - Animal Bite Differential Diagnosis Differential diagnosis: Likely dog bite Imaging Data Extremity x-ray #1: Radiologist's Impression: Chart Viewer Diagnostics DATE TYPE STATUS AUTHOR Hx 11/04/19 08:17 Koby West 04/03/19 10:15 Dashawn Morales 01/09/19 15:01 Angeles Handy Kierstin A K 29, F0 1990 DEP [facility], [facility] 167.64cm 77.7kg BMI: 27.6kg/m? Extremity Injury, Upper Search Chart No Data to Display ONSET Today 08:14 Lucia Nickerson F [address] [address] XRay Report Signed Patient: Lucia Nickerson KMR#: [id number] : 1990Acct:[id number] Age/Sex: 29 / FDate of Service: 11/04/19 Loc: ED Accession Number: [id number] Procedure: XR forearm LT 2V Ordering Provider: Regulo Faye D.O. PROCEDURE: XR FOREARM RT 2V INDICATIONS: dog bite TECHNIQUE: 2 views of the forearm were acquired. COMPARISON: None. FINDINGS: Bones: No fractures or dislocations. No suspicious bony lesions. Soft tissues: No suspicious soft tissue calcifications or masses. Mild soft tissue edema along the distal forearm is present. No radiopaque foreign bodies. IMPRESSION: No acute fractures of the left forearm. Dictated by: Koby West M.D. on 11/04/2019 at 7:44 Approved by: Koby West M.D. on 11/04/2019 at 7:45 Discharge Plan Departure Patient Disposition: Home Clinical Impression: Dog bite of forearm Qualifiers: Encounter type: initial encounter Laterality: left Qualified Code(s): S51.852A - Open bite of left forearm, initial encounter Discharge Date/Time: 11/04/19 10:03 Instructions: DI for Dog Bite Activity Restrictions/Additional Instructions: *You have been diagnosed with [dog bite left forearm with lacerations and suture placement] *What to do: *Take medications as directed: Antibiotics electronically transmitted to [facility] in [place] *Follow up with your primary care provider in 2-3 days, call for an appointment. Let them know you were seen in the Emergency Department and that we ask that you be seen in follow up *Return to ER if you should have any new, worsening or concerning symptoms Please keep the wound clean and dry to the best of your ability. Please monitor for signs of infection such as redness to the skin or increasing pain. Have the sutures removed by your doctor in about 7 days. If you are unable to get into your doctor, we would be happy to remove the sutures in that same timeframe. Prescriptions: New amoxicillin-pot clavulanate [Augmentin] 875-125 mg tablet 1 tab PO BID Qty: 20 RF: 0 No Action prenat.vits,michele,mak-aqka-rotze tablet 1 tab PO DAILY RF: 0 Referrals: Vivi Crockett MD [Primary Care Provider] -
[2019-11-04] MEDS: HYDROCODONE/ACET 5/325 TABLET 1 TAB PO (09:41)
[2019-11-04] MEDS: BUPIVACAINE 0.5% W/ EPI (PF) 30 ML VIAL (09:42)
--- NOTE | 2019-11-04 09:49 | PC.NURSE ---
tolerated well, noticed 5 puncture wound sutured, with contusion, echymosis. reviewed, ice pack and elevation with pt, verbal understanding intruction. reviewed s/sx of infection, rtr prn, fu with primaryl
[2019-11-04] MEDS: BACITRACIN OINT 0.9 GM PCKT 1 APPLIC TOP (09:50)
== END 2019-11-04 10:03 | disposition home or self-care (01) ==
PROVIDERS: Emergency Provider Emergency Medicine; PCP Family Medicine
DX: S51.852A Open bite of left forearm, initial encounter (principal); W54.0XXA Bitten by dog, initial encounter; Z23 Encounter for immunization
CPT/HCPCS: 12001; 73090; 90471; 99283; 99284; 90715

== ENCOUNTER → 2019-11-06 15:05 | Outpatient (CLI) | payer OTHER, SELFPAY | PROVIDERS: PCP Family Medicine; Visit Provider Family Medicine | DX: S51.859A Open bite of unspecified forearm, initial encounter (principal); W54.0XXA Bitten by dog, initial encounter | CPT/HCPCS: 87070; 87075; 87205 ==

== ENCOUNTER → 2019-11-06 16:03 | Outpatient (CLI) | payer OTHER, SELFPAY ==
--- NOTE | 2019-11-06 21:17 | DI.CT.S_ITS ---
PROCEDURE: CT UE LT W CON INDICATIONS: dog bite, concern for deep infxn with rapid spread erythema TECHNIQUE: After the administration of intravenous contrast, 3 mm axial sections acquired of the left forearm, with coronal and sagittal reformats. COMPARISON: None. FINDINGS: Image quality: Excellent. Bones: No fracture or osteomyelitis seen. Soft tissues: Prominent soft tissue edema over the forearm without abscess identified. No gas in the soft tissues or foreign body seen. IMPRESSION: Prominent inflammatory changes within the soft tissues of the forearm, in the area of current clinical concern, without visualized evidence of osteomyelitis, foreign body or gas in the soft tissues. Cellulitis appears present as the underlying cause. Dictated by: Dashawn Morales M.D. on 11/07/2019 at 9:02 Approved by: Dashawn Morales M.D. on 11/07/2019 at 9:38
== END ==
PROVIDERS: PCP Family Medicine; Referring Provider Family Medicine; Visit Provider Family Medicine
DX: S51.852A Open bite of left forearm, initial encounter (principal); W54.0XXA Bitten by dog, initial encounter
CPT/HCPCS: 73201; 73701; 87070; 87075; 87205

== ENCOUNTER → 2019-11-07 12:58 | Outpatient (CLI) | payer OTHER, SELFPAY | PROVIDERS: PCP Family Medicine; Visit Provider Family Medicine | DX: S51.859A Open bite of unspecified forearm, initial encounter (principal); W54.0XXA Bitten by dog, initial encounter | CPT/HCPCS: 87070; 87075; 87205 ==

== ENCOUNTER 2019-11-08 08:55 | Inpatient (IN) | payer OTHER, SELFPAY ==
[2019-11-08 09:06] VITALS: BP 128/68; PULSE 68; RESP 15; TEMP 36.4; O2SAT 100; BMI 28.5
--- NOTE | 2019-11-08 09:54 | PC.NURSE ---
Pt bit by dog 5 days ago,came here on antibiotics. Pt concerned it is getting worse. Pts redness outlined when she was here. Redness does not appear to extend beyond original markings but she is now c/o left elbow pain and warmth.
--- NOTE | 2019-11-08 09:59 | ED.ANIMALBIT ---
HPI - Animal Bite General Chief Complaint: Animal Bite Stated Complaint: DOGS BITES STILL HURTING SINCE SAT LEFT ARM Time Seen by Provider: 11/08/19 09:57 Source: patient and old records reviewed Mode of arrival: Ambulatory Limitations: no limitations History of Present Illness HPI narrative: This is a 29-year-old female who states that she tried to break up a dog fight Wednesday night into Wednesday morning. They were her own dogs. Patient states had multiple bites on her forearm she was started on oral antibiotics she has been following with her primary care is been giving her IM shots of penicillin and she had a CT on the and she has had increasing redness, swelling and pain she states maybe a little bit of purulent discharge from 1 site but mostly it has been clear. She has had chills at home but no documented fevers. She has had nausea but no vomiting. No chest pain or shortness of breath. She describes a was some mild tingling in her fingers but no loss of sensation or weakness. She has increasing pain particularly in her left elbow and has some redness in that area which is not adjacent to a bite and has been increasing in area. Patient states symptoms just seem to be getting worse and pain seems to be increasing over time. She is otherwise healthy, denies other medical issues, denies any allergies denies any tobacco, alcohol or illicit. Related Data Home Medications Medication Instructions Recorded Confirmed prenat.vits,michele,ewp-jazy-bveow 1 tab PO DAILY 10/19/18 07/18/19 Previous Rx's Medication Instructions Recorded amoxicillin-pot clavulanate 1 tab PO BID #20 tab 11/04/19 [Augmentin] Allergies Allergy/AdvReac Type Severity Reaction Status Date / Time No Known Drug Allergies Allergy Verified 11/08/19 09:06 Review of Systems Review of Systems ROS Unobtainable: All systems reviewed & are unremarkable except as noted in HPI and below Patient History Medical History Healthy adult (Acute) Social History household members: children Smoking Status: Never smoker Smoking Status: Never smoker alcohol intake frequency: other Substance Use Type: does not use Exam Initial Vital Signs Initial Vital Signs: Vital Signs Temperature 97.6 F 11/08/19 09:06 Pulse Rate 68 11/08/19 09:06 Respiratory Rate 15 11/08/19 09:06 Blood Pressure 128/68 11/08/19 09:06 Pulse Oximetry 100 11/08/19 09:06 Course Orders Ordered: ED Orders 11/08/19 10:09 XR forearm LT 2V Stat 11/08/19 10:12 XR elbow LT min 3V Stat 11/08/19 10:32 Basic Metabolic Panel Stat Complete Blood Count AUTO DIFF Stat Lactate (Lactic Acid) Stat Procalcitonin Stat 11/08/19 10:50 Blood Culture Stat Acetaminophen (Tylenol) 650 mg PO Q6HR PRN PRN Reason: Fever/Mild Pain (1-3) Ampicillin Sodium/Sulbactam (Sodium 3 gm/ Sodium Chloride) 100 mls @ 100 mls/hr IV Q6H MANUEL Last Admin: 11/08/19 17:43 Dose: 100 mls/hr Documented by: CHILO Ibuprofen (Advil) 600 mg PO Q6HR PRN PRN Reason: Fever/Mild Pain (1-3) Last Admin: 11/08/19 17:40 Dose: 600 mg Documented by: CHILO Naloxone HCl (Narcan) 0.2 mg IV Q2MIN PRN PRN Reason: Opiate Reversal Ondansetron HCl (Zofran) 4 mg IV Q8HR PRN PRN Reason: Nausea And Vomiting Last Admin: 11/08/19 18:08 Dose: 4 mg Documented by: CHILO Discontinued Medications Sodium Chloride (Normal Saline 0.9%) 1,000 mls @ 1,000 mls/hr IV BOLUS ONE Stop: 11/08/19 11:08 Last Infusion: 11/08/19 12:21 Dose: 1,000 mls/hr Documented by: Infusion: 11/08/19 11:21 Dose: 0 mls/hr Documented by: Admin: 11/08/19 10:48 Dose: 1,000 mls/hr Documented by: CELSA Ampicillin Sodium/Sulbactam (Sodium 1.5 gm/ Sodium Chloride) 100 mls @ 100 mls/hr IV NOW ONE Stop: 11/08/19 10:10 Last Infusion: 11/08/19 12:21 Dose: 100 mls/hr Documented by: Infusion: 11/08/19 11:20 Dose: 0 mls/hr Documented by: Admin: 11/08/19 10:48 Dose: 100 mls/hr Documented by: CELSA Ketorolac Tromethamine (Toradol) 30 mg IV NOW ONE Stop: 11/08/19 10:10 Last Admin: 11/08/19 10:48 Dose: 30 mg Documented by: CELSA Vital Signs Vital signs: Vital Signs - 8 hr 11/08/19 09:06 Temperature 97.6 F Pulse Rate 68 Respiratory Rate 15 Blood Pressure 128/68 Pulse Oximetry 100 MDM - Animal Bite Lab Data Attestation: I reviewed the patient's lab results. Result diagrams: 11/08/19 10:32 11/08/19 10:32 Labs: Lab Results 11/08/19 11/08/19 11/08/19 Range/Units 10:32 10:32 10:32 WBC 6.4 (4.5-11.0) X10^3/uL RBC 4.18 (4.0-5.2) X10^6/uL Hgb 12.4 (12.0-16.0) g/dL Hct 36.3 (36-46) % MCV 86.9 (80-100) fL MCH 29.8 (26-34) PG MCHC 34.3 (30-36) % RDW 12.9 (11.6-14.8) % Plt Count 358 (150-400) X10^3/uL Neut % (Auto) 58.3 (50-75) % Lymph % (Auto) 30.9 (25-40) % [place] % (Auto) 7.7 (3-14) % Eos % (Auto) 2.3 (2-4) % Baso % (Auto) 0.8 (0-2) % Neut # (Auto) 3700 (3369-3484) /uL Lymph # (Auto) 2000 (0569-0552) /uL [place] # (Auto) 500 (0-900) /uL Eos # (Auto) 100 (0-450) /uL Baso # (Auto) 100 (0-100) /uL Sodium 140 (137-145) mmol/L Potassium 3.9 (3.4-5.1) mmol/L Chloride 104 (98-107) mmol/L Carbon Dioxide 25 (22-32) mmol/L BUN 10 (7-17) mg/dL Creatinine 0.50 L (0.52-1.04) mg/dL Estimated GFR > 60.0 (>60) mL/min BUN/Creatinine Ratio 20.0 (6-22) Glucose 93 (70-100) mg/dL Lactate (0.7-2.1) mmol/L Calcium 9.3 (8.4-10.2) mg/dL Procalcitonin < 0.05 (<0.5) ng/mL 11/08/19 Range/Units 10:32 WBC (4.5-11.0) X10^3/uL RBC (4.0-5.2) X10^6/uL Hgb (12.0-16.0) g/dL Hct (36-46) % MCV (80-100) fL MCH (26-34) PG MCHC (30-36) % RDW (11.6-14.8) % Plt Count (150-400) X10^3/uL Neut % (Auto) (50-75) % Lymph % (Auto) (25-40) % [place] % (Auto) (3-14) % Eos % (Auto) (2-4) % Baso % (Auto) (0-2) % Neut # (Auto) (6087-9478) /uL Lymph # (Auto) (6745-1441) /uL [place] # (Auto) (0-900) /uL Eos # (Auto) (0-450) /uL Baso # (Auto) (0-100) /uL Sodium (137-145) mmol/L Potassium (3.4-5.1) mmol/L Chloride (98-107) mmol/L Carbon Dioxide (22-32) mmol/L BUN (7-17) mg/dL Creatinine (0.52-1.04) mg/dL Estimated GFR (>60) mL/min BUN/Creatinine Ratio (6-22) Glucose (70-100) mg/dL Lactate 0.7 (0.7-2.1) mmol/L Calcium (8.4-10.2) mg/dL Procalcitonin (<0.5) ng/mL Imaging Data forearm xray: Radiologist's Impression: [address] [address] XRay Report Signed Patient: Lucia NickersonR#: [id number] : 1990Acct:[id number] Age/Sex: 29 / FDate of Service: 11/08/19 Loc: ED Accession Number: [id number] Procedure: XR forearm LT 2V Ordering Provider: Shonna Gonzalez D.O. PROCEDURE: XR FOREARM RT 2V INDICATIONS: multiple dog bites, increasing infxn. TECHNIQUE: 2 views of the forearm were acquired. COMPARISON: [facility], CR, XR FOREARM LT 2V, 11/04/2019, 8:26. FINDINGS: Bones: No fractures or dislocations. No suspicious bony lesions. Soft tissues: No suspicious soft tissue calcifications or masses. IMPRESSION: No trauma found. No foreign body seen. Dictated by: Dashawn Morales M.D. on 11/08/2019 at 10:35 Approved by: Dashawn Morales M.D. on 11/08/2019 at 10:39 elbow xray: Radiologist's Impression: [place] [address] XRay Report Signed Patient: Lucia Nickerson KMR#: [id number] : 1990Acct:[id number] Age/Sex: 29 / FDate of Service: 11/08/19 Loc: [id number]-4 Accession Number: [id number] Procedure: XR elbow LT min 3V Ordering Provider: Shonna Gonzalez D.O. PROCEDURE: XR ELBOW LT MIN 3V INDICATIONS: elbow pain, dog bite remote from elbow, redness TECHNIQUE: 3 views of the elbow were acquired. COMPARISON: [facility], CT, CT UE LT W CON, 11/06/2019, 16:47. [facility], CR, XR FOREARM LT 2V, 11/08/2019, 10:09. [facility], CR, XR FOREARM LT 2V, 11/04/2019, 8:26. FINDINGS: Bones: No fractures or dislocations. No suspicious bony lesions. Soft tissues: Probable small elbow joint effusion. No suspicious soft tissue calcifications. IMPRESSION: No acute osseous abnormalities. Probable small elbow effusion. Dictated by: Levi Adhikari M.D. on 11/08/2019 at 11:00 Approved by: Levi Adhikari M.D. on 11/08/2019 at 11:02 MDM Narrative Medical decision making narrative: Patient comes in with increasing redness and areas of redness and cellulitis that are not even adjacent to her dog bite that occurred Wednesday. She has had 4-5 days of oral and IM antibiotics with worsening symptoms and is failing treatment. Potentially has a tenosynovitis she had a CT which showed cellulitis of her upper extremity on the , necrotizing fasciitis less likely and possibly septic arthritis although patient has good movement at the elbow and seems less likely on the differential. IV antibiotics were started, spoke with Dr. Crockett who accepts for admission and also spoke with Dr. Hutchison who will see the patient in consultation for Orthopedic surgery. Major abnormalities procalcitonin is negative but on physical exam she clearly has cellulitis that seems to be worsening with worsening pain and symptoms. Discharge Plan Departure Patient Disposition: Admitted As Inpatient Clinical Impression: Dog bite of forearm, Cellulitis Discharge Date/Time: 11/08/19 11:23 Admit Date/Time: 11/08/19 10:46 Admit Provider: Vivi Crockett
--- NOTE | 2019-11-08 10:09 | DI.RAD.S_ITS ---
PROCEDURE: XR FOREARM RT 2V INDICATIONS: multiple dog bites, increasing infxn. TECHNIQUE: 2 views of the forearm were acquired. COMPARISON: [facility], CR, XR FOREARM LT 2V, 11/04/2019, 8:26. FINDINGS: Bones: No fractures or dislocations. No suspicious bony lesions. Soft tissues: No suspicious soft tissue calcifications or masses. IMPRESSION: No trauma found. No foreign body seen. Dictated by: Dashawn Morales M.D. on 11/08/2019 at 10:35 Approved by: Dashawn Morales M.D. on 11/08/2019 at 10:39
--- NOTE | 2019-11-08 10:12 | DI.RAD.S_ITS ---
PROCEDURE: XR ELBOW LT MIN 3V INDICATIONS: elbow pain, dog bite remote from elbow, redness TECHNIQUE: 3 views of the elbow were acquired. COMPARISON: [facility], CT, CT UE LT W CON, 11/06/2019, 16:47. [facility], CR, XR FOREARM LT 2V, 11/08/2019, 10:09. [facility], CR, XR FOREARM LT 2V, 11/04/2019, 8:26. FINDINGS: Bones: No fractures or dislocations. No suspicious bony lesions. Soft tissues: Probable small elbow joint effusion. No suspicious soft tissue calcifications. IMPRESSION: No acute osseous abnormalities. Probable small elbow effusion. Dictated by: Levi Adhikari M.D. on 11/08/2019 at 11:00 Approved by: Levi Adhikari M.D. on 11/08/2019 at 11:02
[2019-11-08 10:45] LABS: Add Manual Diff / Slide Review NO; Basophils Absolute Auto 100 /uL (0-100); Basophils Percent Auto 0.8 % (0-2); Eosinophils Absolute Auto 100 /uL (0-450); Eosinophils Percent Auto 2.3 % (2-4); Hematocrit 36.3 % (36-46); Hemoglobin 12.4 g/dL (12.0-16.0); Lymphocytes Absolute Auto 2000 /uL (1100-4500); Lymphocytes Percent Auto 30.9 % (25-40); Mean Corpuscular HGB Conc 34.3 % (30-36); Mean Corpuscular Hemoglobin 29.8 PG (26-34); Mean Corpuscular Volume 86.9 fL (80-100); Monocytes Absolute Auto 500 /uL (0-900); Monocytes Percent Auto 7.7 % (3-14); Neutrophils Absolute Auto 3700 /uL (1500-7000); Neutrophils Percent Auto 58.3 % (50-75); Platelet Count 358 X10^3/uL (150-400); Red Blood Cell Count 4.18 X10^6/uL (4.0-5.2); Red Cell Distribution Width 12.9 % (11.6-14.8); White Blood Cell Count 6.4 X10^3/uL (4.5-11.0)
[2019-11-08] MEDS: SODIUM CHLORIDE 0.9% 1,000 ML 1000 ML IV (10:48)
[2019-11-08] MEDS: KETOROLAC 60 MG/2 ML VIAL 30 MG IV (10:48)
[2019-11-08] MEDS: AMPICILLIN/SULBACTAM 1.5 GM 1.5 GM in SODIUM CHLORIDE 0.9% 100 ML IV (10:48)
[2019-11-08 10:54] LABS: Blood Urea Nitrogen 10 mg/dL (7-17); Calcium 9.3 mg/dL (8.4-10.2); Carbon Dioxide 25 mmol/L (22-32); Chloride 104 mmol/L (98-107); Estimated Glomerular Filt Rate > 60.0 mL/min (>60); Glucose 93 mg/dL (70-100); HEMOLYSIS < 15 (0-50); Lactate (Lactic Acid) 0.7 mmol/L (0.7-2.1); Potassium 3.9 mmol/L (3.4-5.1); Sodium 140 mmol/L (137-145)
[2019-11-08 11:30] VITALS: BP 109/60; PULSE 65; RESP 15; TEMP 37.2; O2SAT 100
[2019-11-08 11:34] LABS: Procalcitonin < 0.05 ng/mL (<0.5)
[2019-11-08 12:03] VITALS: BMI 28.5
--- NOTE | 2019-11-08 12:16 | P.HP_ITS ---
History of Present Illness History of Present Illness Date Patient Seen: 11/08/19 Time Patient Seen: 12:30 Chief complaint: DOGS BITES STILL HURTING SINCE SAT Narrative: Patient is a 29-year-old previously healthy woman who presents with signs of worsening infection after dog bite. On 11/04, the patient was breaking up a fight between her 2 dogs when her pit bull clamped onto her arm. The patient sustained multiple puncture wounds. Patient does know that the dog is fully immunized. She states that they blood profusely. She was brought to the emergency room for further evaluation. Due to ongoing bleeding, the punctures were sutured closed loosely. She was started on Augmentin, and discharged home. Over the next day, the pain in her arm increased significantly. On 11/06 she came to the office due to worsening erythema around the puncture wounds. In clinic, the sutures were removed to allow for better drainage. She received 2 g IM ceftriaxone. Due to concerns for deeper infection, CT of the arm was completed. This showed signs of cellulitis but no no abscess or deeper infection. The patient was instructed to continue her Augmentin. On 11/07 the patient was again seen in clinic. At that time, the patient did note slightly more pain in her elbow. The erythema was stable from the day prior. She received another 2 g of IM ceftriaxone. Since being seen in clinic yesterday, the patient reports that the erythema has continued to spread toward her elbow. She now has significant pain with movement of the elbow. She also notes that it appears more swollen. Due to concerns for worsening infection, she came to the emergency room for evaluation. She denies any recent fevers. She has had occasional chills. She has had mild nausea. She denies significant drainage from the wounds, however does state that she feels a ?dripping sensation inside. Patient History Family & Social History Safety & Behavioral: Feels Safe in Current Yes Environment Been Physically Hurt or No Threatened By a Person Tobacco & Substance use: Smoking Status Never smoker alcohol intake frequency other Substance Use Type does not use Meds Home Medications and Allergies Home Medications Medication Instructions Recorded Confirmed Type prenat.vits,michele,xng-yehh-aledv 1 tab PO DAILY 10/19/18 07/18/19 History amoxicillin-pot clavulanate 1 tab PO BID #20 tab 11/04/19 Rx [Augmentin] Allergies Allergy/AdvReac Type Severity Reaction Status Date / Time No Known Drug Allergies Allergy Verified 11/08/19 09:06 Review of Systems Constitutional Constitutional: Reports chills, Denies fever(s), Denies night sweats and Denies weakness Cardiovascular Cardiovascular: Denies chest pain, Denies leg swelling, Denies rapid, pounding, or irregular heartbeat and Denies shortness of breath Respiratory Respiratory: Denies cough and Denies dyspnea Gastrointestinal Gastrointestinal: Denies abdominal pain, Reports nausea and Denies vomiting Neurologic Neurologic: Denies weakness Endocrine Endocrine: Denies palpitations Exam Vital Signs (past 8 hours): - 11/08/19 09:06 Temperature 97.6 F Pulse Rate 68 Respiratory Rate 15 Blood Pressure 128/68 Pulse Oximetry 100 Oxygen Delivery Method Room Air Narrative Exam Narrative: GEN - alert, cooperative and no distress HEENT - normocephalic and atraumatic, sclera white, moist mucus membranes NECK - FROM, no adenopathy HEART - RRR, S1, S2 normal, no S3 or S4, no murmurs LUNGS - symmetric chest rise, no accessory muscles, clear to auscultation bilaterally ABD - flat, nondistended, normal bowel sounds, soft, nontender and no hepatomegaly, splenomegaly or masses EXT - left arm with multiple puncture wounds, not actively draining with crusting overtop, erythema around wounds actually improved from clinic yesterday; now with significant erythema and warmth around the elbow with moderate swelling, ROM at the elbow limited due to pain, radial pulse intact, able to move all fingers with some discomfort SKIN - no rashes or suspicious lesions NEURO - no gross deficits Objective Labs Result Diagrams: 11/08/19 10:32 11/08/19 10:32 Labs: Laboratory Results - last 24 hr 11/08/19 11/08/19 11/08/19 10:32 10:32 10:32 WBC 6.4 RBC 4.18 Hgb 12.4 Hct 36.3 MCV 86.9 MCH 29.8 MCHC 34.3 RDW 12.9 Plt Count 358 Neut % (Auto) 58.3 Lymph % (Auto) 30.9 [place] % (Auto) 7.7 Eos % (Auto) 2.3 Baso % (Auto) 0.8 Neut # (Auto) 3700 Lymph # (Auto) 2000 [place] # (Auto) 500 Eos # (Auto) 100 Baso # (Auto) 100 Sodium 140 Potassium 3.9 Chloride 104 Carbon Dioxide 25 BUN 10 Creatinine 0.50 L Estimated GFR > 60.0 BUN/Creatinine Ratio 20.0 Glucose 93 Lactate Calcium 9.3 Procalcitonin < 0.05 11/08/19 10:32 WBC RBC Hgb Hct MCV MCH MCHC RDW Plt Count Neut % (Auto) Lymph % (Auto) [place] % (Auto) Eos % (Auto) Baso % (Auto) Neut # (Auto) Lymph # (Auto) [place] # (Auto) Eos # (Auto) Baso # (Auto) Sodium Potassium Chloride Carbon Dioxide BUN Creatinine Estimated GFR BUN/Creatinine Ratio Glucose Lactate 0.7 Calcium Procalcitonin Assessment & Plan Assessment and plan (1) Cellulitis: Current visit: Yes Status: Acute (2) Dog bite of forearm: Current visit: Yes Status: Acute Assessment & Plan narrative: Patient is a 29-year-old previously healthy woman who presents with signs of worsening infection after dog bite. Pt failed outpatient treatment with worsening of erythema and pain. Now with swelling and pain around the elbow, relatively distant from puncture wounds. Is concerning for possible tenosynovitis, less likely septic arthritis. Pt at minimum with cellulitis not responsive to outpatient treatment. - Ortho consulted from the ER, appreciate recommendations and care - Continue IV Unasyn for now - Wound culture pending from clinic, although obtained after antibiotics started - Blood culture pending, also obtained after antibiotics - PRN Tylenol and Ibuprofen for pain for now, received IV Toradol in the ER FEN: NPO pending ortho evaluation DVT prophylaxis: Pt easily mobile in room, SCDs Code: Full Dispo: Pending Ortho evaluation, evidence of response to IV antibiotics.
--- NOTE | 2019-11-08 13:58 | PC.NURSE ---
Pt brought to the AC floor via the ED into room 214 at approx. 1135. Pt is A & O x 3. Punctures sites from dog bite are noted to left forearm with edema to forearm and elbow. Mild amount of erythema to left upper extremity present. Pt has been made comfortable and oriented to the room.
[2019-11-08 15:31] VITALS: BP 103/52; PULSE 65; RESP 16; TEMP 36.7; O2SAT 98
--- NOTE | 2019-11-08 17:33 | PM.HP.1 ---
History of Present Illness History of Present Illness Date Patient Seen: 11/08/19 Time Patient Seen: 12:33 Chief complaint: DOGS BITES STILL HURTING SINCE SAT Narrative: This is a 29-year-old female who was breaking up a dog fight between her 2 pit bulls on Wednesday when she accidentally got bit on the left arm. She is [id number]. She was seen in the emergency room where some stitches were placed. She was put also placed on antibiotics. She has also seen her primary care practitioner and it is noted that she is getting slow a little worse despite appropriate treatment with antibiotics. She is having some increased pain along her left elbow and notes increased redness. Patient History Medical History Healthy adult (Acute) Family & Social History Social History: household members children Prior Living Arrangements Apartment/Condo Safety & Behavioral: Feels Safe in Current Yes Environment Been Physically Hurt or No Threatened By a Person Suicidal Ideation Description None Tobacco & Substance use: Smoking Status Never smoker alcohol intake frequency other Substance Use Type does not use Meds Home Medications and Allergies Home Medications Medication Instructions Recorded Confirmed Type prenat.vits,michele,uwj-pcxo-qirma 1 tab PO DAILY 10/19/18 07/18/19 History amoxicillin-pot clavulanate 1 tab PO BID #20 tab 11/04/19 Rx [Augmentin] Allergies Allergy/AdvReac Type Severity Reaction Status Date / Time No Known Drug Allergies Allergy Verified 11/08/19 09:06 Review of Systems Review of Systems Narrative: She has noted some minimal fevers at home she is having increased pain and difficulty with her left arm, and no problems with her lungs, no problems with her heart she is otherwise healthy, she knows that Botox or her dogs they were in her bedroom at the time and their shots are up-to-date. Exam Vital Signs (past 8 hours): - 11/08/19 11:30 11/08/19 15:31 Temperature 99 F 98.1 F Pulse Rate 65 65 Respiratory Rate 15 16 Blood Pressure 109/60 103/52 L Pulse Oximetry 100 98 Oxygen Delivery Method Room Air Oxygen Flow Rate 0 Narrative Exam Narrative: HEENT is benign, lungs are clear, cor is regular rate and rhythm, abdomen is benign, left upper extremity shows multiple lacerations on both the dorsum and volar aspect of her forearm with some erythema and just trace of drainage from the wounds, there is also swelling along the lateral aspect of her elbow and in the region of her lecture olecranon bursa without marked fluctuance were severe erythema, her elbow range of motion shows full pronation and supination, flexion and extension is from 10? to 140 Objective Labs Result Diagrams: 11/08/19 10:32 11/08/19 10:32 Labs: Laboratory Results - last 24 hr 11/08/19 11/08/19 11/08/19 10:32 10:32 10:32 WBC 6.4 RBC 4.18 Hgb 12.4 Hct 36.3 MCV 86.9 MCH 29.8 MCHC 34.3 RDW 12.9 Plt Count 358 Neut % (Auto) 58.3 Lymph % (Auto) 30.9 [place] % (Auto) 7.7 Eos % (Auto) 2.3 Baso % (Auto) 0.8 Neut # (Auto) 3700 Lymph # (Auto) 2000 [place] # (Auto) 500 Eos # (Auto) 100 Baso # (Auto) 100 Sodium 140 Potassium 3.9 Chloride 104 Carbon Dioxide 25 BUN 10 Creatinine 0.50 L Estimated GFR > 60.0 BUN/Creatinine Ratio 20.0 Glucose 93 Lactate Calcium 9.3 Procalcitonin < 0.05 11/08/19 10:32 WBC RBC Hgb Hct MCV MCH MCHC RDW Plt Count Neut % (Auto) Lymph % (Auto) [place] % (Auto) Eos % (Auto) Baso % (Auto) Neut # (Auto) Lymph # (Auto) [place] # (Auto) Eos # (Auto) Baso # (Auto) Sodium Potassium Chloride Carbon Dioxide BUN Creatinine Estimated GFR BUN/Creatinine Ratio Glucose Lactate 0.7 Calcium Procalcitonin Assessment & Plan Assessment & Plan narrative: Impression is left forearm dog bite with cellulitis and increased erythema, no clinical evidence of an abscess, initial partial failure of oral antibiotics. Think she is an appropriate candidate for admission and IV antibiotics. I do not see clinical add evidence of an abscess and a think she likely will respond to nonsurgical treatment but we will re-evaluate her tomorrow. Quality VTE Deep Vein Thrombosis/Pulmonary Embolism Present on Admission: No
[2019-11-08] MEDS: IBUPROFEN 600 MG TABLET PO (17:40)
[2019-11-08] MEDS: AMPICILLIN/SULBACTAM 3 GM 3 GM in SODIUM CHLORIDE 0.9% 100 ML IV ×2 (17:43→22:43)
[2019-11-08] MEDS: ONDANSETRON 4 MG/2 ML INJ IV (18:08)
--- NOTE | 2019-11-08 23:34 | PC.NURSE ---
A&O4. pain 6-7 and tolerating pain. refused pain med. pt has multiple laceration on LUE, cleansed wound. LUE elevated. ice applied. LUE is pink within marked borders and warm to touch. administered zofran for nausea. independent in room. call light in reach.
[2019-11-09 00:10] VITALS: BP 113/58; PULSE 67; RESP 16; TEMP 36.7; O2SAT 98
[2019-11-09] MEDS: AMPICILLIN/SULBACTAM 3 GM 3 GM in SODIUM CHLORIDE 0.9% 100 ML IV ×4 (05:14→22:37)
[2019-11-09 05:15] VITALS: BP 109/68; PULSE 66; RESP 16; TEMP 36.4; O2SAT 99
[2019-11-09 06:24] VITALS: BP 109/63; PULSE 60; RESP 15; TEMP 36.6; O2SAT 100
[2019-11-09 08:00] VITALS: BP 107/58; PULSE 68; RESP 16; TEMP 36.6; O2SAT 99
--- NOTE | 2019-11-09 08:53 | P.PN_ITS ---
Subjective Subjective Date Patient Seen: 11/09/19 Time Patient Seen: 08:30 Interval history: The pt reports continued significant pain in her arm, especially at the elbow. She feels that the pain is deep inside, and that there is pressure building up as well. She does not believe the pain has improved at all from yesterday. The pt also reports having mild low back pain that started overnight. Exam Vital Signs (past 8 hours): - 11/09/19 05:15 11/09/19 06:24 Temperature 97.6 F 97.8 F Pulse Rate 66 60 Respiratory Rate 16 15 Blood Pressure 109/68 109/63 Pulse Oximetry 99 100 Oxygen Delivery Method Room Air Oxygen Flow Rate 0 Narrative Exam Narrative: GEN - alert, cooperative and no distress, lying comfortably in bed HEART - RRR, no murmurs LUNGS - clear to auscultation bilaterally ABD - nondistended, normal bowel sounds, soft, nontender EXT - left arm with multiple puncture wounds, not actively draining with crusting overtop, erythema around wounds improved minimally from yesterday; erythema and swelling around elbow stable from yesterday but not significantly improved, pt still with significant discomfort with elbow ROM Objective Labs Result Diagrams: 11/08/19 10:32 11/08/19 10:32 Labs: Laboratory Results - last 24 hr 11/08/19 11/08/19 11/08/19 10:32 10:32 10:32 WBC 6.4 RBC 4.18 Hgb 12.4 Hct 36.3 MCV 86.9 MCH 29.8 MCHC 34.3 RDW 12.9 Plt Count 358 Neut % (Auto) 58.3 Lymph % (Auto) 30.9 [place] % (Auto) 7.7 Eos % (Auto) 2.3 Baso % (Auto) 0.8 Neut # (Auto) 3700 Lymph # (Auto) 2000 [place] # (Auto) 500 Eos # (Auto) 100 Baso # (Auto) 100 Sodium 140 Potassium 3.9 Chloride 104 Carbon Dioxide 25 BUN 10 Creatinine 0.50 L Estimated GFR > 60.0 BUN/Creatinine Ratio 20.0 Glucose 93 Lactate Calcium 9.3 Procalcitonin < 0.05 11/08/19 10:32 WBC RBC Hgb Hct MCV MCH MCHC RDW Plt Count Neut % (Auto) Lymph % (Auto) [place] % (Auto) Eos % (Auto) Baso % (Auto) Neut # (Auto) Lymph # (Auto) [place] # (Auto) Eos # (Auto) Baso # (Auto) Sodium Potassium Chloride Carbon Dioxide BUN Creatinine Estimated GFR BUN/Creatinine Ratio Glucose Lactate 0.7 Calcium Procalcitonin Assessment & Plan Assessment and plan (1) Cellulitis: Current visit: Yes Status: Acute (2) Dog bite of forearm: Current visit: Yes Status: Acute Assessment & Plan narrative: Patient is a 29-year-old previously healthy woman who presents with signs of worsening infection after dog bite. Pt failed outpatient treatment with worsening of erythema and pain. Now with swelling and pain around the elbow, relatively distant from puncture wounds. Pt with cellulitis not responsive to outpatient treatment. - Ortho consulted from the ER, appreciate recommendations and care. Yesterday low concern for abscess. - Continue IV Unasyn - Wound culture negative thus far, although obtained after on antibiotics - Blood culture pending, also obtained after antibiotics - PRN Tylenol and Ibuprofen for pain for now FEN: General diet DVT prophylaxis: Pt easily mobile in room, SCDs Code: Full Dispo: Pending evidence of response to IV antibiotics. Quality VTE Deep Vein Thrombosis/Pulmonary Embolism Present on Admission: No
[2019-11-09] MEDS: LACTOBACILLUS ACIDOPHILUS TABLET 1 EACH PO (10:18)
[2019-11-09] MEDS: ONDANSETRON 4 MG/2 ML INJ IV (10:19)
--- NOTE | 2019-11-09 10:37 | P.PN_ITS ---
Subjective Subjective Date Patient Seen: 11/09/19 Time Patient Seen: 10:37 Interval history: Slight decreased swelling in the left elbow in comparison to yesterday, some improvement in pain. Exam Vital Signs (past 8 hours): - 11/09/19 05:15 11/09/19 06:24 11/09/19 08:00 Temperature 97.6 F 97.8 F 97.9 F Pulse Rate 66 60 68 Respiratory Rate 16 15 16 Blood Pressure 109/68 109/63 107/58 L Pulse Oximetry 99 100 99 Oxygen Delivery Method Room Air Oxygen Flow Rate 0 Narrative Exam Narrative: No significant drainage from her wounds, decreased erythema around her wounds, decreased swelling over the left elbow in the elect and in the olecranon area, no significant fluctuance slight pain with full range of motion of the elbow Objective Labs Result Diagrams: 11/08/19 10:32 11/08/19 10:32 Labs: Laboratory Results - last 24 hr 11/08/19 11/08/19 11/08/19 10:32 10:32 10:32 WBC 6.4 RBC 4.18 Hgb 12.4 Hct 36.3 MCV 86.9 MCH 29.8 MCHC 34.3 RDW 12.9 Plt Count 358 Neut % (Auto) 58.3 Lymph % (Auto) 30.9 [place] % (Auto) 7.7 Eos % (Auto) 2.3 Baso % (Auto) 0.8 Neut # (Auto) 3700 Lymph # (Auto) 2000 [place] # (Auto) 500 Eos # (Auto) 100 Baso # (Auto) 100 Sodium 140 Potassium 3.9 Chloride 104 Carbon Dioxide 25 BUN 10 Creatinine 0.50 L Estimated GFR > 60.0 BUN/Creatinine Ratio 20.0 Glucose 93 Lactate Calcium 9.3 Procalcitonin < 0.05 11/08/19 10:32 WBC RBC Hgb Hct MCV MCH MCHC RDW Plt Count Neut % (Auto) Lymph % (Auto) [place] % (Auto) Eos % (Auto) Baso % (Auto) Neut # (Auto) Lymph # (Auto) [place] # (Auto) Eos # (Auto) Baso # (Auto) Sodium Potassium Chloride Carbon Dioxide BUN Creatinine Estimated GFR BUN/Creatinine Ratio Glucose Lactate 0.7 Calcium Procalcitonin Assessment & Plan Assessment & Plan narrative: Cellulitis after dog bite improving with IV antibiotics. Clinically she has improved in comparison to yesterday. I have recommend we continue with IV antibiotics and anticipate that she likely be stable for discharge to home tomorrow. Quality VTE Deep Vein Thrombosis/Pulmonary Embolism Present on Admission: No
[2019-11-09] MEDS: IBUPROFEN 600 MG TABLET PO ×2 (13:04→19:12)
--- NOTE | 2019-11-09 14:44 | CM.IDA ---
Initial DCP Assessment Note: Pt is a 29 yo female, resident of [place]. Pt admitted inpatient w/a failure on outpt po abx after a dog bite days ago PCP: Vivi Crockett Payer: [employer] Reviewed chart. Met w/pt, briefly. Pt sitting up in bed, watching TV. States she has no concerns about returning home once medically cleared. Pt is eager to do so; 4 month old baby is with a friend of hers right now. No SW needs identified at this time P: Home w/family via pov when medically stable, po meds anticipated upon DC GINA Hadley Discharge Planning/Care Management CM Discharge Assessment Start: 11/09/19 14:40 Freq: Status: Active Protocol: Document 11/09/19 14:40 PATTY (Rec: 11/09/19 14:44 PATTY [id number]) Discharge Planning Assessment Assigned Production Shift Supervisor GINA Dockery DPOA/Assigned Designee Name Brooks Nickerson, spouse Contact Information [phone] Advance Directives? Yes History Provided By Patient,Medical Record Prior Living Arrangements Apartment/Condo Household Members spouse,children Type of transporation used prior to Drives own vehicle admit Independent with ADL's Yes Is patient alert and oriented? Yes Caregiver for Another Yes: 4 month old at home Barriers to Discharge No Discharge Plan Home Transportation Arrangement Friend or Family Referrals Initiated None needed Whiteboard Updated in Patient Room with Yes name and ext. # of Production Shift Supervisor Review Status In Process
[2019-11-09 16:15] VITALS: BP 106/60; PULSE 66; RESP 16; TEMP 36.7; O2SAT 99
[2019-11-09] MEDS: SODIUM CHLORIDE 0.9% FLUSH 10 ML IV ×2 (17:52→21:31)
[2019-11-09] MEDS: SODIUM CHLORIDE 0.9% 250 ML 21 ML IV ×2 (17:53→22:39)
[2019-11-10] MEDS: ONDANSETRON 4 MG/2 ML INJ IV (00:13)
[2019-11-10 00:58] VITALS: BP 108/58; PULSE 65; RESP 16; TEMP 36.1; O2SAT 96
[2019-11-10] MEDS: AMPICILLIN/SULBACTAM 3 GM 3 GM in SODIUM CHLORIDE 0.9% 100 ML IV ×2 (05:03→10:54)
[2019-11-10] MEDS: SODIUM CHLORIDE 0.9% FLUSH 10 ML IV ×2 (05:03→08:56)
[2019-11-10 08:25] VITALS: BP 104/51; PULSE 86; RESP 16; TEMP 36.9; O2SAT 100
[2019-11-10] MEDS: LACTOBACILLUS ACIDOPHILUS TABLET 1 EACH PO (08:55)
[2019-11-10] MEDS: IBUPROFEN 600 MG TABLET PO (08:59)
--- NOTE | 2019-11-10 09:10 | P.DS_ITS ---
History of Present Illness History of Present Illness Chief complaint: DOGS BITES STILL HURTING SINCE SAT Narrative: Patient is a 29-year-old previously healthy woman who presents with signs of worsening infection after dog bite. On 11/04, the patient was breaking up a fight between her 2 dogs when her pit bull clamped onto her arm. The patient sustained multiple puncture wounds. Patient does know that the dog is fully immunized. She states that they blood profusely. She was brought to the emergency room for further evaluation. Due to ongoing bleeding, the punctures were sutured closed loosely. She was started on Augmentin, and discharged home. Over the next day, the pain in her arm increased significantly. On 11/06 she came to the office due to worsening erythema around the puncture wounds. In clinic, the sutures were removed to allow for better drainage. She received 2 g IM ceftriaxone. Due to concerns for deeper infection, CT of the arm was completed. This showed signs of cellulitis but no no abscess or deeper infection. The patient was instructed to continue her Augmentin. On 11/07 the patient was again seen in clinic. At that time, the patient did note slightly more pain in her elbow. The erythema was stable from the day prior. She received another 2 g of IM ceftriaxone. Since being seen in clinic yesterday, the patient reports that the erythema has continued to spread toward her elbow. She now has significant pain with movement of the elbow. She also notes that it appears more swollen. Due to concerns for worsening infection, she came to the emergency room for evaluation. She denies any recent fevers. She has had occasional chills. She has had mild nausea. She denies significant drainage from the wounds, however does state that she feels a ?dripping sensation inside. Discharge Providers Provider Date of admission: 11/08/19 10:46 Discharge Date: 11/10/19 Primary care physician: Vivi Crockett MD Discharge provider: Vivi Crockett MD Summary Hospital Course Discharge Diagnosis: Cellulitis Dog bite Hospital Course: The pt presented due to worsening edema and erythema of her le ft arm after dog bite, with cellulitis failing outpatient treatment and concern for joint infection/abscess. She was started on IV Unasyn. Ortho was consulted, who did not recommend surgical intervention but continuation of IV antibiotics. During her hospitalization, the erythema improved significantly, and pain started to improve as well. At the time of discharge, the swelling in her elbow had decreased, and erythema had nearly resolved. She will be discharged to continue her PO Augmentin until she follows-up in clinic next week. Strict return precautions were discussed. Status at Discharge Cognitive/behavioral status at discharge: oriented Functional status at discharge: independent ambulation Overall status at discharge: patient is progressing back to baseline Time Spent with Patient Time spent: Greater than 30 minutes Exam Vital Signs (past 8 hours): Oxygen Delivery Method Room Air Oxygen Flow Rate 0 Narrative Exam Narrative: Gen: NAD, sitting comfortably in bed, appears well CV: RRR, no murmurs Resp: clear to auscultation bilaterally Ext: very minimal erythema around puncture wounds, wounds sealed closed without drainage, no significant erythema at elbow, tenderness decreased from yesterday Objective Labs Result Diagrams: 11/08/19 10:32 11/08/19 10:32 Discharge Plan Discharge Plan Patient Disposition: Home Discharge orders & Medications Prescriptions: New Bacid 1 billion cell- 250 mg Tablet 1 ea PO DAILY Qty: 30 RF: 0 ondansetron 4 mg tablet,disintegrating 4 mg PO Q8H PRN (Reason: nausea and vomiting) Qty: 20 RF: 0 amoxicillin-pot clavulanate [Augmentin] 875-125 mg tablet 1 tab PO BID Qty: 14 RF: 0 Discontinued amoxicillin-pot clavulanate [Augmentin ES-600] 600-42.9 mg/5 mL Suspension For Reconstitution 5 ml PO BID RF: 0 Follow up/Referrals: Vivi Crockett MD [Primary Care Provider] - 11/15/19 12:00 pm Diet/Activity/Treatments Diet: Regular Visit Report/Discharge Packet Instructions: DI for Cellulitis -- Adult, DI for Dog Bite, How to Use Antibiotics Wisely Visit Report Forms: Patient Portal/API, Stroke Signs & Symptoms Discharge Data Primary Care Provider: Vivi Crockett Quality VTE Deep Vein Thrombosis/Pulmonary Embolism Present on Admission: No
--- NOTE | 2019-11-10 13:16 | PC.NURSE ---
Day Shift- Pt A&OX4, able to make needs known using call light. Left forearm, puncture wounds FELICIA, scabbed, pink around puncture site, no redness, edema less than yesterday. Wrinkled skin to elbow. Pt very good with keeping elevated on pillows at heart level or above. Spoke with Dr. Crockett on unit around 0800, request for prn anti-emetic while pt on antibiotics and IV antibiotic made pt slightly nauseated. Pt indep in room with steady gait without dizziness or light-headedness. PRN Ibuprofen given at 0910 for 6/10 aching and pressure, tenderness to left forearm, satisfactory effect upon re-assessment. Pt stated Tylenol does not work for her. Spoke with Dr. Crockett around 1230 via phone. Pt okay to discharge home without seeing Ortho. 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 Pt is going to Dr. Crockett's office to get a work excuse note. Pt had no further voiced concerns. States has all belongings. Pt to drive herself home as her car is here and she drove herself to ED prior to admission. Pt left unit ambulating in no distress with [employer] escort at 1312.
== END 2019-11-10 13:12 | disposition home or self-care (01) | DRG 603 ==
LOC: ED 10:32 → AC 11:17
PROVIDERS: Admitting Provider Family Medicine; Emergency Provider Emergency Medicine; PCP Family Medicine; Referring Provider Orthopaedic Surgery; Visit Provider Family Medicine
DX: L03.114 Cellulitis of left upper limb (principal); S51.852A Open bite of left forearm, initial encounter; W54.0XXA Bitten by dog, initial encounter
CPT/HCPCS: 36415; 73080; 73090; 80048; 83605; 84145; 85025; 87040; 96365; 96375; 99221; 99231; 99238; 99284; J0295; J1885; J2405

== ENCOUNTER → 2019-11-15 10:14 | Outpatient (CLI) | payer OTHER, SELFPAY ==
[2019-11-08 12:03] VITALS: BMI 28.5
--- NOTE | 2019-11-15 10:15 | DI.US.S_ITS ---
PROCEDURE: US PELVIC COMPLETE INDICATIONS: PAIN W/ OVULATION, LT ADNEXAL TENDERNESS TECHNIQUE: Real-time scanning was performed of the pelvic organs, with image documentation. Additional endovaginal scanning was necessary due to incomplete visualization of the adnexal and endometrial structures by transabdominal scanning. COMPARISON: None. FINDINGS: Transabdominal scanning: Limited scanning through the kidneys shows no hydronephrosis. No pathologic free abdominal or pelvic fluid. Endovaginal scanning: Uterus: Uterus is normal in size at 2.9 x 5.2 x 6.8 cm. The endometrium measures 6.4 mm in combined thickness. Ovaries: The right ovary measures 2.8 x 1.5 x 1.5 cm and the left measures 3.0 x 1.9 x 1.7 cm with a cyst measuring up to 2.0 x 1.2 x 1.3 cm, simple in character. IMPRESSION: Source of left adnexal pain is not seen. Incidental note is made of a small simple appearing left ovarian cyst measuring up to 2.0 cm. A cyst of this small size generally he is asymptomatic. No sign of ovarian torsion. Dictated by: Dashawn Morales M.D. on 11/15/2019 at 14:08 Approved by: Dasahwn Morales M.D. on 11/15/2019 at 14:10
== END ==
PROVIDERS: PCP Family Medicine; Referring Provider Family Medicine; Visit Provider Family Medicine
DX: N94.0 Mittelschmerz (principal); N83.202 Unspecified ovarian cyst, left side
CPT/HCPCS: 76830; 76856

== ENCOUNTER → 2020-03-13 14:49 | Outpatient (CLI) | payer OTHER, SELFPAY ==
[2020-01-26 13:40] VITALS: BMI 28.5
[2020-03-13 17:43] LABS: HCG Quantitative /Beta subunit 29.4 mIU/mL
== END ==
PROVIDERS: PCP Family Medicine; Referring Provider Family Medicine; Visit Provider Family Medicine
DX: Z32.01 Encounter for pregnancy test, result positive (principal)
CPT/HCPCS: 36415; 84702

== ENCOUNTER → 2020-03-18 07:11 | Outpatient (CLI) | payer OTHER, SELFPAY ==
[2020-01-26 13:40] VITALS: BMI 28.5
[2020-03-18 09:03] LABS: HCG Quantitative /Beta subunit 112.2 mIU/mL
== END ==
PROVIDERS: PCP Family Medicine; Referring Provider Family Medicine; Visit Provider Family Medicine
DX: N91.2 Amenorrhea, unspecified (principal)
CPT/HCPCS: 36415; 84702

== ENCOUNTER 2020-03-20 16:42 | Emergency (ER) | payer OTHER, SELFPAY ==
[2020-01-26 13:40] VITALS: BMI 28.5
[2020-03-20] VITALS (7 sets, daily range): BP systolic 99–139; BP diastolic 57–81; PULSE 66–98; RESP 14–24; TEMP 37.2; O2SAT 96–100
--- NOTE | 2020-03-20 16:54 | DI.US.S_ITS ---
PROCEDURE: US OB <= 14 WEEKS FETUS INDICATIONS: SEVERE LLQ PAIN/ AT 6 WEEKS OUTSIDE/PRIOR DATING DATA: Last menstrual period (LMP): 02/07/2020. LMP-based estimated date of delivery (DEBBIE): 11/13/20. First dating scan (date and location): n.a. Estimated date of delivery (DEBBIE) from first dating scan: n.a. TECHNIQUE: Real-time scanning was performed of the fetus and maternal pelvic organs, with image documentation. Endovaginal scanning was also performed to better visualize the fetus and maternal ovaries. COMPARISON: None. FINDINGS: Embryo: There is no intrauterine gestational sac. Endometrium is thickened. There is a trace amount of fluid in the endometrial cavity. Measurement variability in dating: +/- 4 weeks by LMP, +/- 7 days by mean sac diameter (use before 6 weeks gestation if crown-rump length not able to be measured), +/- 5 days by crown-rump length (up to 8 weeks 6 days gestation), +/- 7 days by crown-rump length (up to 13 weeks 6 days gestation). Maternal organs: Right ovary is normal. There is a complex cyst with peripherally increased vascularity the left ovary measuring 2.5 x 2.3 x 2.0 cm. Limited images through the kidneys demonstrate no hydronephrosis. IMPRESSION: 1. Thickened endometrium. No IUP is identified. This finding could be due to early intrauterine . 2. A 2.5 x 2.3 x 2.0 cm complex cyst with peripherally increased vascularity in the left ovary. Cannot exclude ectopic . Recommend correlation with quantitative serum beta-hCG. If clinically indicated, followup exam is suggested. Dictated by: Levi Adhikari M.D. on 03/20/2020 at 20:16 Approved by: Levi Adhikari M.D. on 03/20/2020 at 20:20
[2020-03-20 17:05] LABS: Add Manual Diff / Slide Review NO; Basophils Absolute Auto 100 /uL (0-100); Basophils Percent Auto 1.1 % (0-2); Eosinophils Absolute Auto 200 /uL (0-450); Eosinophils Percent Auto 2.2 % (2-4); Hematocrit 36.7 % (36-46); Hemoglobin 12.5 g/dL (12.0-16.0); Lymphocytes Absolute Auto 3200 /uL (1100-4500); Lymphocytes Percent Auto 33.5 % (25-40); Mean Corpuscular HGB Conc 33.9 % (30-36); Mean Corpuscular Hemoglobin 29.8 PG (26-34); Mean Corpuscular Volume 87.9 fL (80-100); Monocytes Absolute Auto 700 /uL (0-900); Monocytes Percent Auto 7.6 % (3-14); Neutrophils Absolute Auto 5300 /uL (1500-7000); Neutrophils Percent Auto 55.6 % (50-75); Platelet Count 333 X10^3/uL (150-400); Red Blood Cell Count 4.18 X10^6/uL (4.0-5.2); Red Cell Distribution Width 12.8 % (11.6-14.8); White Blood Cell Count 9.4 X10^3/uL (4.5-11.0)
--- NOTE | 2020-03-20 17:14 | ED_ITS ---
HPI - General Chief complaint: OB/Uterine Contractions Stated complaint: 6 WKS LEFT LOWER PAIN SPOTTING Time Seen by Provider: 03/20/20 16:42 Source: patient and family Mode of arrival: Ambulatory Limitations: no limitations History of Present Illness HPI Narrative: 29-year-old female nonsmoker is a at 6 weeks who presents with a chief complaint of severe left lower quadrant pain with spotting. She states that about 2 days ago she started having some mild vaginal spotting and soon thereafter developed significant and worsening of left lower quadrant pain. It is worse when she moves and improves with rest. She denies any dysuria, frequency or urgency. She denies any change in her bowel habits. She has had no nausea, vomiting or fever. She called her PCP (Dr. Crockett) who directed her here for a more thorough evaluation. MD Complaint: abdominal pain and vaginal bleeding Onset (ago): day(s) Pain Consistency: constant Location: pelvis Severity: moderate Quality: Cramping Relieving factors: none Exacerbating factors: movement Associated symptoms: vaginal bleeding Vaginal discharge: none Vaginal bleeding: light Patient : Yes OB History - Current : no complications OB History - Previous Pregnancies: no complications care: followed by OB Related Data : 2 Para: 1 Home Medications Medication Instructions Recorded Confirmed No Known Home Medications 03/20/20 03/20/20 [id number] fumarate-FA 1 tab PO DAILY 03/20/20 03/20/20 [] Allergies Allergy/AdvReac Type Severity Reaction Status Date / Time No Known Drug Allergies Allergy Verified 03/20/20 17:04 Review of Systems Constitutional Constitutional: Denies chills, Denies fatigue, Denies fever(s), Denies frequent falls, Denies lethargy and Denies weakness Eyes Eyes: Denies change in vision, Denies eye discharge, Denies irritation and Denies loss of vision ENT Ears, Nose, Mouth, and Throat: Denies change in voice, Denies dizziness, Denies neck pain, Denies sore throat and Denies throat swelling Cardiovascular Cardiovascular: Denies chest pain, Denies irregular heart rhythm, Denies ligh theadedness, Denies palpitations, Denies dyspnea, Denies dyspnea on exertion and Denies orthopnea Respiratory Respiratory: Denies cough, Denies dyspnea, Denies dyspnea on exertion and Denies wheezing Gastrointestinal Gastrointestinal: Reports abdominal pain, Denies change in bowel habits, Denies diarrhea, Denies nausea and Denies vomiting Genitourinary Genitourinary: Reports abnormal vaginal bleeding Musculoskeletal Musculoskeletal: Denies neck pain and Denies numbness Integumentary/Breasts Skin/Breast: Denies pruritus, Denies erythema, Denies rash and Denies wounds Neurologic Neurologic: Denies behavioral changes, Denies confusion, Denies dizziness, Denies frequent falls, Denies loss of vision, Denies numbness and Denies weakness Psychiatric Psychiatric: Denies anxiety, Denies behavioral changes, Denies confusion, Denies depression, Denies homicidal ideation and Denies suicidal ideation Endocrine Endocrine: Denies fatigue, Denies flushing and Denies palpitations Hematologic/Lymphatic Hematologic/Lymphatic: Denies easy bruising Allergic/Immunologic Allergic/Immunologic: Denies urticaria, Denies throat swelling and Denies wheezing PMFSH - Past Medical History Medical history: Reports non-contributory 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 Well- nourished, well-developed patient, in moderate distress, tearful, walking a bit crouched over and rubbing her left lower quadrant HEAD: Atraumatic. Normocephalic. EYES: Pupils equal round and reactive. Extraocular motions intact. No scleral icterus. No injection or drainage. ENT: Nose without bleeding, purulent drainage. Throat without erythema, tonsillar hypertrophy or exudate. Airway patent. NECK: Trachea midline. Non tender CARDIOVASCULAR: Regular rate and rhythm without murmurs, gallops, or rubs. RESPIRATORY: Clear to auscultation. Breath sounds equal bilaterally. No wheezes, rales, or rhonchi. GASTROINTESTINAL: Abdomen soft, tender in left lower quadrant, nondistended. EXTREMITIES: No edema or joint tenderness. BACK: Nontender without deformity or crepitance. No flank tenderness. NEURO: AOx3. SKIN: No rash or erythema of visible areas Initial Vital Signs Initial Vital Signs: Vital Signs Temperature 99.0 F 03/20/20 16:45 Pulse Rate 98 H 03/20/20 16:45 Respiratory Rate 24 03/20/20 16:45 Blood Pressure 139/81 03/20/20 16:45 Pulse Oximetry 98 03/20/20 16:45 Course Orders Ordered: Discontinued Medications Acetaminophen (Tylenol) 650 mg PO NOW ONE Stop: 03/20/20 19:06 Last Admin: 03/20/20 19:10 Dose: 650 mg Documented by: CORBY Vital Signs Vital signs: Vital Signs - 8 hr 03/20/20 16:45 03/20/20 17:03 Temperature 99.0 F Pulse Rate 98 H 80 Respiratory Rate 24 14 Blood Pressure 139/81 100/72 Pulse Oximetry 98 97 MDM - OB/Uterine Contractions Lab Data Result diagrams: 03/20/20 16:25 03/20/20 16:25 Labs: Lab Results 03/20/20 03/20/20 Range/Units 16:25 16:25 WBC 9.4 (4.5-11.0) X10^3/uL RBC 4.18 (4.0-5.2) X10^6/uL Hgb 12.5 (12.0-16.0) g/dL Hct 36.7 (36-46) % MCV 87.9 (80-100) fL MCH 29.8 (26-34) PG MCHC 33.9 (30-36) % RDW 12.8 (11.6-14.8) % Plt Count 333 (150-400) X10^3/uL Neut % (Auto) 55.6 (50-75) % Lymph % (Auto) 33.5 (25-40) % [place] % (Auto) 7.6 (3-14) % Eos % (Auto) 2.2 (2-4) % Baso % (Auto) 1.1 (0-2) % Neut # (Auto) 5300 (9393-5334) /uL Lymph # (Auto) 3200 (5781-3578) /uL [place] # (Auto) 700 (0-900) /uL Eos # (Auto) 200 (0-450) /uL Baso # (Auto) 100 (0-100) /uL Sodium 137 (137-145) mmol/L Potassium 3.9 (3.4-5.1) mmol/L Chloride 103 (98-107) mmol/L Carbon Dioxide 22 (22-32) mmol/L BUN 13 (7-17) mg/dL Creatinine 0.46 L (0.52-1.04) mg/dL Estimated GFR > 60.0 (>60) mL/min BUN/Creatinine Ratio 28.3 H (6-22) Glucose 101 H (70-100) mg/dL Calcium 9.5 (8.4-10.2) mg/dL HCG, Quant 186.4 mIU/mL Urine Dip Bedside Urine Glucose Negative Bedside Urine Bilirubin - Negative Bedside Urine Ketone - Negative Urine Specific [place] 1.015 Bedside Urine Occult Blood - Negative Bedside Urine pH 7.0 Bedside Urine Protein - Negative Bedside Urine Urobilinogen - Negative Bedside Urine Nitrite - Negative Bedside Urine Leukocytes - Negative Esterase Discharge Plan Departure Patient Disposition: Home Clinical Impression: Acute left lower quadrant pain Discharge Date/Time: 03/20/20 20:34 Instructions: DI for Abdominal Pain-Adult Activity Restrictions/Additional Instructions: *You have been diagnosed with [left lower quadrant pain during ] *What to do: *Take medications as directed *Follow up with your primary care provider in 2-3 days, call for an appointment. Let them know you were seen in the Emergency Department and that we ask that you be seen in follow up. You will need close follow up with repeat labs and possible ultrasound in 2-3 days *Return to ER if you should have any new, worsening or concerning symptoms Prescriptions: No Action 28-800 mg-mcg Tablet 1 tab PO DAILY RF: 0 No Known Home Medications RF: 0 Referrals: Vivi Crockett MD [Primary Care Provider] -
[2020-03-20 17:23] LABS: BUN Creatinine Ratio 28.3 (6-22); Blood Urea Nitrogen 13 mg/dL (7-17); Calcium 9.5 mg/dL (8.4-10.2); Carbon Dioxide 22 mmol/L (22-32); Chloride 103 mmol/L (98-107); Estimated Glomerular Filt Rate > 60.0 mL/min (>60); Glucose 101 mg/dL (70-100); HEMOLYSIS < 15 (0-50); Potassium 3.9 mmol/L (3.4-5.1); Sodium 137 mmol/L (137-145)
[2020-03-20 17:42] LABS: HCG Quantitative /Beta subunit 186.4 mIU/mL
[2020-03-20] MEDS: ACETAMINOPHEN 325 MG TABLET 650 MG PO (19:10)
== END 2020-03-20 20:34 | disposition home or self-care (01) ==
PROVIDERS: Emergency Provider Emergency Medicine; PCP Family Medicine
DX: O20.9 Hemorrhage in early pregnancy, unspecified (principal); R10.32 Left lower quadrant pain; Z3A.01 Less than 8 weeks gestation of pregnancy
CPT/HCPCS: 36415; 76801; 76817; 80048; 81003; 84702; 85025; 99284

== ENCOUNTER → 2020-03-22 12:41 | Outpatient (CLI) | payer OTHER, SELFPAY ==
[2020-01-26 13:40] VITALS: BMI 28.5
== END ==
PROVIDERS: PCP Family Medicine; Referring Provider Family Medicine; Visit Provider Family Medicine
DX: Z34.90 Encounter for supervision of normal pregnancy, unspecified, unspecified trimester (principal)
CPT/HCPCS: 36415; 84702

== ENCOUNTER → 2020-03-25 17:08 | Outpatient (CLI) | payer OTHER, SELFPAY ==
[2020-01-26 13:40] VITALS: BMI 28.5
[2020-03-25 18:22] LABS: HCG Quantitative /Beta subunit 114.5 mIU/mL
== END ==
PROVIDERS: PCP Family Medicine; Referring Provider Family Medicine; Visit Provider Family Medicine
DX: O02.81 Inappropriate change in quantitative human chorionic gonadotropin (hCG) in early pregnancy (principal)
CPT/HCPCS: 36415; 84702

== ENCOUNTER → 2020-03-27 07:23 | Outpatient (CLI) | payer OTHER, SELFPAY ==
[2020-01-26 13:40] VITALS: BMI 28.5
[2020-03-27 09:06] LABS: Albumin 4.5 g/dL (3.5-5.0); Albumin Globulin Ratio 1.6 (1.0-2.8); Alkaline Phosphatase 70 U/L (38-126); Aspartate Aminotransferase 21 IU/L (14-36); BUN Creatinine Ratio 21.8 (6-22); Bilirubin Total 0.6 mg/dL (0.2-1.3); Blood Urea Nitrogen 12 mg/dL (7-17); Calcium 9.7 mg/dL (8.4-10.2); Carbon Dioxide 27 mmol/L (22-32); Chloride 104 mmol/L (98-107); Estimated Glomerular Filt Rate > 60.0 mL/min (>60); Globulin 2.8 g/dL (1.7-4.1); Glucose 82 mg/dL (70-100); HEMOLYSIS < 15 (0-50); Potassium 4.2 mmol/L (3.4-5.1); Sodium 138 mmol/L (137-145); Total Protein 7.3 g/dL (6.3-8.2)
[2020-03-27 09:15] LABS: HCG Quantitative /Beta subunit 105.5 mIU/mL
[2020-03-27 14:23] LABS: Alanine Aminotransferase 15 IU/L (<35)
== END ==
PROVIDERS: PCP Family Medicine; Referring Provider Family Medicine; Visit Provider Family Medicine
DX: N91.2 Amenorrhea, unspecified (principal); R10.32 Left lower quadrant pain
CPT/HCPCS: 36415; 80053; 84702

== ENCOUNTER → 2020-03-29 09:46 | Outpatient (CLI) | payer OTHER, SELFPAY ==
[2020-01-26 13:40] VITALS: BMI 28.5
--- NOTE | 2020-03-29 09:47 | DI.US.S_ITS ---
PROCEDURE: US PELVIC COMPLETE INDICATIONS: KNOWN ECTOPIC, TREATMENT; INCREASING PAIN TECHNIQUE: Real-time scanning was performed of the pelvic organs, with image documentation. Additional endovaginal scanning was necessary due to incomplete visualization of the adnexal and endometrial structures by transabdominal scanning. COMPARISON: [facility], US, US PELVIC COMPLETE, 03/22/2020, 12:37. FINDINGS: Transabdominal scanning: Limited scanning through the kidneys shows no hydronephrosis. No pathologic free abdominal or pelvic fluid. Endovaginal scanning: Uterus: Uterus is normal in size at 6.9 x 4.3 x 5.4 cm. The endometrial stripe is prominent measuring 14.5 mm. The endometrial stripe is heterogeneous, with several small cystic lesions seen within it. Ovaries: The right ovary measures 1.7 x 2 x 1.9 cm. The left ovary measures 2.3 x 2.2 x 2.9 cm. Within the left ovary, there is an apparent corpus luteum seen measuring up to 1.9 cm. Immediately adjacent to the left ovary, there is a complex solid appearing mass with increased vascularity that measures 2.1 x 2.5 x 2.3 cm. IMPRESSION: 2.5 cm left adnexal mass seen which demonstrates a complex appearance and increased vascularity, which is most likely related to the known history of an ectopic . No significant abnormal fluid is seen at this time. Prominent, heterogeneous endometrial stripe. Likely left ovarian corpus luteum. Close clinical followup, with serial beta-hCG and serial ultrasound are recommended, as clinically appropriate. Dictated by: Matty Troy M.D. on 03/29/2020 at 10:58 Approved by: Matty Troy M.D. on 03/29/2020 at 11:00
== END ==
PROVIDERS: PCP Family Medicine; Referring Provider Family Medicine; Visit Provider Family Medicine
DX: O00.90 Unspecified ectopic pregnancy without intrauterine pregnancy (principal); R10.2 Pelvic and perineal pain
CPT/HCPCS: 76817; 76856

== ENCOUNTER → 2020-03-30 09:37 | Outpatient (CLI) | payer OTHER, SELFPAY ==
[2020-01-26 13:40] VITALS: BMI 28.5
[2020-03-30 10:59] LABS: HCG Quantitative /Beta subunit 64.4 mIU/mL
== END ==
PROVIDERS: PCP Family Medicine; Referring Provider Family Medicine; Visit Provider Family Medicine
DX: N91.2 Amenorrhea, unspecified (principal)
CPT/HCPCS: 36415; 84702

== ENCOUNTER → 2020-04-01 07:59 | Outpatient (CLI) | payer OTHER, SELFPAY ==
[2020-01-26 13:40] VITALS: BMI 28.5
[2020-04-01 08:57] LABS: HCG Quantitative /Beta subunit 34.2 mIU/mL
== END ==
PROVIDERS: PCP Family Medicine; Referring Provider Family Medicine; Visit Provider Family Medicine
DX: N91.2 Amenorrhea, unspecified (principal)
CPT/HCPCS: 36415; 84702

== ENCOUNTER → 2023-10-19 12:25 | Outpatient (CLI) | payer OTHER, SELFPAY ==
[2020-01-26 13:40] VITALS: BMI 28.5
== END ==
PROVIDERS: PCP Family Medicine; Visit Provider Family Medicine
DX: R10.9 Unspecified abdominal pain (principal); N39.41 Urge incontinence
CPT/HCPCS: 87086

== ENCOUNTER 2023-10-19 13:03 | Emergency (ER) | payer OTHER, SELFPAY ==
[2020-01-26 13:40] VITALS: BMI 28.5
[2023-10-19 13:06] VITALS: BP 119/68; PULSE 88; RESP 20; TEMP 36.6; O2SAT 100; BMI 26.3
--- NOTE | 2023-10-19 14:00 | ED.NAVMDI ---
HPI - Nausea/Vomiting/Diarrhea <Unique Vo PA-C - Last Filed: 10/19/23 16:21> General Chief complaint: Nausea/Vomiting/Diarrhea Stated complaint: vomiting, weakness, dehydration, 11wks Time Seen by Provider: 10/19/23 13:43 Source: patient Mode of arrival: Wheelchair History of Present Illness HPI Narrative: 33-year-old female who is 11 weeks with twins sent to the ED by her OBGYN Dr. Cordova for Zofran and IV fluids to control hyperemesis gravidarum. Patient states that she has been struggling with the nausea and vomiting since she was 5 weeks with this . However, over the last 4 days, she has been unable to keep anything down. Patient states that she feels very dehydrated and lightheaded, almost passed out 4 times earlier today. Patient denies abdominal pain, fever, chills, pelvic cramping, vaginal bleeding. Patient does say she has some lower back pain. Patient was seen for an episode of hyperemesis gravidarum at a last vagus ED 2 weeks ago, was also diagnosed with a UTI at that time and prescribed antibiotics. Patient was seen by her OBGYN this morning who has obtained a urine sample and sent for culture. Patient also had a ultrasound performed earlier today. Patient states that she felt jittery and agitated when she got Reglan the last time and it did not help with her nausea either. Patient endorses that Zofran has worked well in the past for her. Related Data Home Medications Medication Instructions Recorded Confirmed vit no.133-ferrous 1 tab PO DAILY 03/20/20 03/29/20 fumarate 28 mg-folic acid 800 mcg tablet () doxylamine succinate 25 mg tablet 25 mg PO BEDTIME PRN 10/19/23 10/19/23 (Unisom (doxylamine)) progesterone 50 mg/mL 5 mg IM DAILY 10/19/23 10/19/23 intramuscular oil pyridoxine (vitamin B6) 25 mg 25 mg PO DAILY 10/19/23 10/19/23 tablet Previous Rx's Medication Instructions Recorded ondansetron 4 mg disintegrating 4 mg PO Q8H PRN nausea and 10/19/23 tablet vomiting #30 tabs Allergies Allergy/AdvReac Type Severity Reaction Status Date / Time metoclopramide [From Reglan] AdvReac Anxiety Verified 10/19/23 13:16 Review of Systems <Unique Vo PA-C - Last Filed: 10/19/23 16:21> Constitutional Constitutional: Denies chills, Denies fatigue, Denies fever(s), Denies frequent falls, Denies lethargy and Denies weakness Eyes Eyes: Denies change in vision, Denies eye discharge, Denies irritation and Denies loss of vision ENT Ears, Nose, Mouth, and Throat: Denies change in voice, Denies dizziness, Denies neck pain, Denies sore throat and Denies throat swelling Cardiovascular Cardiovascular: Denies chest pain, Denies irregular heart rhythm, Reports lightheadedness, Denies palpitations, Denies dyspnea, Denies dyspnea on exertion and Denies orthopnea Respiratory Respiratory: Denies cough, Denies dyspnea, Denies dyspnea on exertion and Denies wheezing Gastrointestinal Gastrointestinal: Denies abdominal pain, Denies change in bowel habits, Denies diarrhea, Reports nausea and Reports vomiting Musculoskeletal Musculoskeletal: Denies neck pain and Denies numbness Integumentary/Breasts Skin/Breast: Denies pruritus, Denies erythema, Denies rash and Denies wounds Neurologic Neurologic: Denies behavioral changes, Denies confusion, Denies dizziness, Denies frequent falls, Denies loss of vision, Denies numbness and Denies weakness Psychiatric Psychiatric: Denies anxiety, Denies behavioral changes, Denies confusion, Denies depression, Denies homicidal ideation and Denies suicidal ideation Endocrine Endocrine: Denies fatigue, Denies flushing and Denies palpitations Hematologic/Lymphatic Hematologic/Lymphatic: Denies easy bruising Allergic/Immunologic Allergic/Immunologic: Denies urticaria, Denies throat swelling and Denies wheezing Patient History <Unique Vo PA-C - Last Filed: 10/19/23 16:21> Medical History (Updated 10/19/23 @ 15:28 by Unique Vo PA-C) Healthy adult Social History household members: spouse and children Smoking Status: Never smoker Smoking Status: Never smoker alcohol intake frequency: other Substance Use Type: does not use Exam <Unique Vo PA-C - Last Filed: 10/19/23 16:21> Narrative Exam Narrative: Const General:?cooperative, healthy appearing and comfortable HENMT Head:?normal to inspection Ears:?hearing grossly normal bilaterally Nose:?external nose normal Face and sinus:?normal facial exam and sinuses nontender Mouth:?oral mucosae normal Throat:?posterior oropharynx normal Eyes General:?appearance normal, both eyes and all related structures Neck Neck:?normal visual inspection and no lymphadenopathy noted Resp Effort & Inspection:?normal respiratory effort Auscultation:?clear to auscultation bilaterally Cardio Rate:?regular rate Rhythm:?regular rhythm Neuro General:?patient alert, patient awake and patient oriented x3 Initial Vital Signs Initial Vital Signs: Vital Signs Temperature 97.8 F 10/19/23 13:06 Pulse Rate 88 10/19/23 13:06 Respiratory Rate 20 10/19/23 13:06 Blood Pressure 119/68 10/19/23 13:06 Pulse Oximetry 100 10/19/23 13:06 Oxygen Delivery Method Room Air 10/19/23 13:06 <Shonna Gonzalez DO - Last Filed: 10/19/23 19:10> Initial Vital Signs Initial Vital Signs: Vital Signs Temperature 97.8 F 10/19/23 13:06 Pulse Rate 88 10/19/23 13:06 Respiratory Rate 20 10/19/23 13:06 Blood Pressure 119/68 10/19/23 13:06 Pulse Oximetry 100 10/19/23 13:06 Oxygen Delivery Method Room Air 10/19/23 13:06 Course <Unique Vo PA-C - Last Filed: 10/19/23 16:21> Orders Ordered: ED Orders 10/19/23 13:40 CBC Auto Diff [Complete Blood Count AUTO DIFF] Stat CMP [Comprehensive Metabolic Panel] Stat Lipase Stat Discontinued Medications Sodium Chloride (Normal Saline 0.9%) 1,000 mls @ 1,000 mls/hr IV BOLUS ONE Stop: 10/19/23 15:05 Last Infusion: 10/19/23 15:10 Dose: Infused Documented By: Admin: 10/19/23 14:20 Dose: 1,000 mls/hr Documented By: DEANGELO Ondansetron HCl (Ondansetron 4 Mg/2 Ml Inj) 4 mg IV NOW ONE Stop: 10/19/23 14:07 Last Admin: 10/19/23 14:20 Dose: 4 mg Documented By: DEANGELO Vital Signs Vital signs: Vital Signs - 8 hr 10/19/23 13:06 10/19/23 15:24 Temperature 97.8 F Pulse Rate 88 74 Respiratory Rate 20 16 Blood Pressure 119/68 101/53 L Pulse Oximetry 100 98 Oxygen Delivery Method Room Air Room Air <Shonna Gonzalez DO - Last Filed: 10/19/23 19:10> Orders Ordered: ED Orders 10/19/23 13:40 CBC Auto Diff [Complete Blood Count AUTO DIFF] Stat CMP [Comprehensive Metabolic Panel] Stat Lipase Stat Discontinued Medications Sodium Chloride (Normal Saline 0.9%) 1,000 mls @ 1,000 mls/hr IV BOLUS ONE Stop: 10/19/23 15:05 Last Infusion: 10/19/23 15:10 Dose: Infused Documented By: Admin: 10/19/23 14:20 Dose: 1,000 mls/hr Documented By: DEANGELO Ondansetron HCl (Ondansetron 4 Mg/2 Ml Inj) 4 mg IV NOW ONE Stop: 10/19/23 14:07 Last Admin: 10/19/23 14:20 Dose: 4 mg Documented By: DEANGELO Vital Signs Vital signs: Vital Signs - 8 hr 10/19/23 13:06 10/19/23 15:24 Temperature 97.8 F Pulse Rate 88 74 Respiratory Rate 20 16 Blood Pressure 119/68 101/53 L Pulse Oximetry 100 98 Oxygen Delivery Method Room Air Room Air MDM - Nausea/Vomiting/Diarrhea <Unique Vo PA-C - Last Filed: 10/19/23 16:21> Lab Data 10/19/23 13:40 10/19/23 13:40 Labs: Lab Results 10/19/23 Range/Units 13:40 WBC 11.0 (4.5-11.0) X10^3/uL RBC 4.12 (4.0-5.2) X10^6/uL Hgb 12.6 (12.0-16.0) g/dL Hct 36.8 (36-46) % MCV 89.3 (80-100) fL MCH 30.6 (26-34) PG MCHC 34.2 (30-36) % RDW 12.6 (11.6-14.8) % Plt Count 313 (150-400) X10^3/uL Neut % (Auto) 81.3 H (50-75) % Lymph % (Auto) 10.7 L (25-40) % [place] % (Auto) 4.2 (3-14) % Eos % (Auto) 3.6 (2-4) % Baso % (Auto) 0.2 (0-2) % Neut # (Auto) 8900 H (5951-8348) /uL Lymph # (Auto) 1200 (2131-9793) /uL [place] # (Auto) 500 (0-900) /uL Eos # (Auto) 400 (0-450) /uL Baso # (Auto) 0 (0-100) /uL Sodium 133 L (137-145) mmol/L Potassium 3.9 (3.4-5.1) mmol/L Chloride 101 (98-107) mmol/L Carbon Dioxide 26 (22-32) mmol/L BUN 6 L (7-17) mg/dL Creatinine 0.43 L (0.52-1.04) mg/dL Estimated GFR > 60 (>60) mL/min BUN/Creatinine Ratio 14.0 (6-22) Glucose 82 (70-100) mg/dL Calcium 9.3 (8.4-10.2) mg/dL Total Bilirubin 0.7 (0.2-1.3) mg/dL AST 36 (14-36) IU/L ALT 22 (<35) IU/L Alkaline Phosphatase 60 (38-126) U/L Total Protein 7.5 (6.3-8.2) g/dL Albumin 4.1 (3.5-5.0) g/dL Globulin 3.4 (1.7-4.1) g/dL Albumin/Globulin Ratio 1.2 (1.0-2.8) Lipase 76 (23-300) U/L MDM Narrative Medical decision making narrative: 33-year-old female who is 11 weeks with twins sent to the ED by her OBGYN Dr. Cordova for Zofran and IV fluids to control hyperemesis gravidarum. Given that she has had all the appropriate tests and screening for as well as a urine culture performed just today, will initiate IV fluids and Zofran. Will reassess. Labs within normal limits. Patient's symptoms significantly improved with IV fluids and Zofran. Patient was able to tolerate p.o. her OBGYN Dr. Cordova has sent a prescription for Zofran to the pharmacy already. Recommend patient take the Zofran and stay well hydrated at home. Recommend follow-up with her OBGYN as soon as possible. ED return precautions were discussed with patient. Patient verbalized understanding. Medical records reviewed: Yes <Shonna Rasheed Gonzalez DO - Last Filed: 10/19/23 19:10> Lab Data Labs: Lab Results 10/19/23 Range/Units 13:40 WBC 11.0 (4.5-11.0) X10^3/uL RBC 4.12 (4.0-5.2) X10^6/uL Hgb 12.6 (12.0-16.0) g/dL Hct 36.8 (36-46) % MCV 89.3 (80-100) fL MCH 30.6 (26-34) PG MCHC 34.2 (30-36) % RDW 12.6 (11.6-14.8) % Plt Count 313 (150-400) X10^3/uL Neut % (Auto) 81.3 H (50-75) % Lymph % (Auto) 10.7 L (25-40) % [place] % (Auto) 4.2 (3-14) % Eos % (Auto) 3.6 (2-4) % Baso % (Auto) 0.2 (0-2) % Neut # (Auto) 8900 H (6755-3057) /uL Lymph # (Auto) 1200 (1607-0753) /uL [place] # (Auto) 500 (0-900) /uL Eos # (Auto) 400 (0-450) /uL Baso # (Auto) 0 (0-100) /uL Sodium 133 L (137-145) mmol/L Potassium 3.9 (3.4-5.1) mmol/L Chloride 101 (98-107) mmol/L Carbon Dioxide 26 (22-32) mmol/L BUN 6 L (7-17) mg/dL Creatinine 0.43 L (0.52-1.04) mg/dL Estimated GFR > 60 (>60) mL/min BUN/Creatinine Ratio 14.0 (6-22) Glucose 82 (70-100) mg/dL Calcium 9.3 (8.4-10.2) mg/dL Total Bilirubin 0.7 (0.2-1.3) mg/dL AST 36 (14-36) IU/L ALT 22 (<35) IU/L Alkaline Phosphatase 60 (38-126) U/L Total Protein 7.5 (6.3-8.2) g/dL Albumin 4.1 (3.5-5.0) g/dL Globulin 3.4 (1.7-4.1) g/dL Albumin/Globulin Ratio 1.2 (1.0-2.8) Lipase 76 (23-300) U/L Discharge Plan Departure Patient Disposition: Home Clinical Impression: Hyperemesis gravidarum Instructions: DI for Hyperemesis Gravidarum Activity Restrictions/Additional Instructions: You were evaluated in the ED today for nausea and vomiting from your . Your symptoms improved with Zofran and IV fluids. You were able to keep down some fluids. Your OBGYN Dr. Cordova has sent a prescription for Zofran to take as needed at home. Please also continue to stay well hydrated at home. Please follow-up with your OBGYN as soon as possible. Return to the ED if you have worsening symptoms, persistently vomiting, unable to keep down fluids. Prescriptions: No Action progesterone 50 mg/mL oil 5 mg IM DAILY Unisom (doxylamine) 25 mg tablet 25 mg PO BEDTIME PRN pyridoxine (vitamin B6) 25 mg tablet 25 mg PO DAILY ondansetron 4 mg tablet,disintegrating 4 mg PO Q8H PRN (Reason: nausea and vomiting) Qty: 30 0RF 28-800 mg-mcg Tablet 1 tab PO DAILY Referrals: Katelin Cordova MD [Primary Care Provider] - Stand Alone Forms: Patient Portal/API ED Sign-out <Shonna Gonzalez DO - Last Filed: 10/19/23 19:10> Cosign ED Attending Mert Attestation: I was immediately available in the department for consultation.
[2023-10-19] MEDS: SODIUM CHLORIDE 0.9% 1,000 ML 1000 ML IV (14:20)
[2023-10-19] MEDS: ONDANSETRON 4 MG/2 ML INJ IV (14:20)
[2023-10-19 14:22] LABS: Add Manual Diff / Slide Review NO; Basophils Absolute Auto 0 /uL (0-100); Basophils Percent Auto 0.2 % (0-2); Eosinophils Absolute Auto 400 /uL (0-450); Eosinophils Percent Auto 3.6 % (2-4); Hematocrit 36.8 % (36-46); Hemoglobin 12.6 g/dL (12.0-16.0); Lymphocytes Absolute Auto 1200 /uL (1100-4500); Lymphocytes Percent Auto 10.7 % (25-40); Mean Corpuscular HGB Conc 34.2 % (30-36); Mean Corpuscular Hemoglobin 30.6 PG (26-34); Mean Corpuscular Volume 89.3 fL (80-100); Monocytes Absolute Auto 500 /uL (0-900); Monocytes Percent Auto 4.2 % (3-14); Neutrophils Absolute Auto 8900 /uL (1500-7000); Neutrophils Percent Auto 81.3 % (50-75); Platelet Count 313 X10^3/uL (150-400); Red Blood Cell Count 4.12 X10^6/uL (4.0-5.2); Red Cell Distribution Width 12.6 % (11.6-14.8)
[2023-10-19 14:29] LABS: Alanine Aminotransferase 22 IU/L (<35); Albumin 4.1 g/dL (3.5-5.0); Albumin Globulin Ratio 1.2 (1.0-2.8); Alkaline Phosphatase 60 U/L (38-126); Aspartate Aminotransferase 36 IU/L (14-36); Bilirubin Total 0.7 mg/dL (0.2-1.3); Blood Urea Nitrogen 6 mg/dL (7-17); Calcium 9.3 mg/dL (8.4-10.2); Carbon Dioxide 26 mmol/L (22-32); Chloride 101 mmol/L (98-107); Estimated Glomerular Filt Rate > 60 mL/min (>60); Globulin 3.4 g/dL (1.7-4.1); Glucose 82 mg/dL (70-100); HEMOLYSIS < 15 (0-50); Lipase 76 U/L (23-300); Potassium 3.9 mmol/L (3.4-5.1); Sodium 133 mmol/L (137-145); Total Protein 7.5 g/dL (6.3-8.2)
[2023-10-19 15:24] VITALS: BP 101/53; PULSE 74; RESP 16; O2SAT 98
== END 2023-10-19 15:39 | disposition home or self-care (01) ==
PROVIDERS: Emergency Provider Student in an Organized Health Care Education/Training Program; PCP Family Medicine
DX: O21.0 Mild hyperemesis gravidarum (principal); Z3A.11 11 weeks gestation of pregnancy; N39.41 Urge incontinence; R10.9 Unspecified abdominal pain
CPT/HCPCS: 36415; 80053; 83690; 85025; 87086; 96361; 96374; 99284; J2405

== ENCOUNTER → 2023-10-27 10:51 | Outpatient (CLI) | payer OTHER, SELFPAY ==
[2020-01-26 13:40] VITALS: BMI 28.5
[2023-10-27 12:20] LABS: Add Manual Diff / Slide Review NO; Basophils Absolute Auto 0 /uL (0-100); Basophils Percent Auto 0.6 % (0-2); Eosinophils Absolute Auto 200 /uL (0-450); Eosinophils Percent Auto 2.5 % (2-4); Hematocrit 36.1 % (36-46); Hemoglobin 12.7 g/dL (12.0-16.0); Lymphocytes Absolute Auto 1800 /uL (1100-4500); Mean Corpuscular HGB Conc 35.1 % (30-36); Mean Corpuscular Hemoglobin 30.6 PG (26-34); Mean Corpuscular Volume 87.1 fL (80-100); Monocytes Absolute Auto 400 /uL (0-900); Monocytes Percent Auto 5.7 % (3-14); Neutrophils Absolute Auto 5200 /uL (1500-7000); Neutrophils Percent Auto 67.2 % (50-75); Platelet Count 344 X10^3/uL (150-400); Red Blood Cell Count 4.14 X10^6/uL (4.0-5.2); Red Cell Distribution Width 12.8 % (11.6-14.8); White Blood Cell Count 7.7 X10^3/uL (4.5-11.0)
[2023-10-27 15:49] LABS: Urine N gonorrhoeae NOT DETECTED
[2023-10-27 16:46] LABS: Urine Chlamydia NOT DETECTED
[2023-10-28 18:37] LABS: Hepatitis B Surface Antigen NEGATIVE s/c (NEGATIVE); Rubella Antibody IgG 11.5 IU/mL (>15)
[2023-10-28 19:00] LABS: HIV 1 & 2 Ab/Ag 4th Gen Combo NEGATIVE (NEGATIVE); Hep C Virus Ab w/Reflex Quant NEGATIVE s/c (NEGATIVE)
[2023-10-29 06:20] LABS: RPR Screen Non Reactive (Non Reactive)
[2023-10-29 08:10] LABS: Varicella IgG Antibody 2358 index (Immune >165)
== END ==
LOC: LAB 10:53
PROVIDERS: PCP Family Medicine; Referring Provider Family Medicine; Visit Provider Family Medicine
DX: O30.041 Twin pregnancy, dichorionic/diamniotic, first trimester (principal)
CPT/HCPCS: 36415; 80055; 86787; 86803; 86850; 86900; 86901; 87389; 87491; 87591

== ENCOUNTER → 2023-11-18 | Outpatient (CLI) | payer OTHER, SELFPAY ==
[2020-01-26 13:40] VITALS: BMI 28.5
--- NOTE | 2023-11-18 13:56 | DI.US.S_ITS ---
PROCEDURE: US OB LIMITED INDICATIONS: growth, cervical length OUTSIDE/PRIOR DATING DATA: 09/09/2023 IVF Estimated date of delivery (DEBBIE): 05/06/2024. Working DEBBIE is 05/06/2024 TECHNIQUE: Real-time scanning was performed of the fetuses, with image documentation and biometric measurements. COMPARISON: None. FINDINGS: General: An intrauterine dichorionic-diamniotic twin is present, as evidenced by separate placentas, differing sexes, or an intervening membrane of greater than 2 mm. Composite amniotic fluid index: 10.1 cm. Maternal cervical canal: 3.8 cm long. Normal lower limit is 2.5 cm. FETUS A: Fetus is located on the maternal left side, and is in transverse presentation. Largest amniotic fluid pocket: 3.0 cm, normal is 2-8 cm. Placental position is anterior, without previa. heart rate: 160 beats per minute. biometrics: Biparietal diameter: 16 weeks 6 days Head circumference: 16 weeks 4 days Abdominal circumference: 16 weeks 2 days Femur length: 15 weeks 4 days Clinically estimated gestational age: 15 weeks 5 days Composite gestational age from present scan: 16 weeks 2 days Estimated weight and percentile: 142 g; 61st percentile FETUS B: Fetus is located on the maternal right side, and is in transverse presentation. Largest amniotic fluid pocket: 4.2 cm, normal is 2-8 cm. Placental position is anterior, without previa. heart rate: 152 beats per minute. biometrics: Biparietal diameter: 16 weeks 4 days Head circumference: 16 weeks 2 days Abdominal circumference: 16 weeks 3 days Femur length: 15 weeks 4 days Clinically estimated gestational age: 15 weeks 5 days Composite gestational age from present scan: 16 weeks 2 days Estimated weight and percentile: 143 g; 63rd percentile Limited anatomic survey. IMPRESSION: 1. Dichorionic diamniotic living twin with age estimated at 15 weeks 5 days for each fetus corresponding to normal interval growth with ultrasound DEBBIE of 05/02/2024. 2. Limited anatomic survey secondary to early age and short-term follow-up recommended. We strive to produce accurate, complete, and clear reports of imaging services. To assist us in improving patient care, this report was composed using standard report templates and voice recognition software. Therefore, it may contain abnormal punctuation, insertions and/or omissions. Occasional wrong-word or sound-alike substitutions may occur. Though we review the report and make efforts to correct it, we do recommend that the report be read carefully in proper context to recognize any text inaccuracies. Dictated by: Aubrey MCCAULEY Interpreted: Luis Enrique Ng MD on 11/18/2023 at 16:36 Approved by: Luis Enrique Ng M.D. on 11/18/2023 at 20:41
== END ==
PROVIDERS: PCP Family Medicine; Referring Provider Family Medicine; Visit Provider Family Medicine
DX: O21.9 Vomiting of pregnancy, unspecified (principal); O30.042 Twin pregnancy, dichorionic/diamniotic, second trimester; Z31.83 Encounter for assisted reproductive fertility procedure cycle; Z3A.15 15 weeks gestation of pregnancy
CPT/HCPCS: 76812; 76815; 76816

== ENCOUNTER → 2023-11-23 09:00 | Outpatient (CLI) | payer OTHER, SELFPAY ==
[2020-01-26 13:40] VITALS: BMI 28.5
[2023-11-25 21:08] LABS: AFP Value 80.4 ng/mL (.); Insulin Dep Diabetes No (.); OSBR Risk 1IN 705 (.); Results Report (.); Test Results *Screen Negative* (.)
[2023-11-26 08:11] LABS: PDF SEE SCANNED REPORTS
== END ==
PROVIDERS: PCP Family Medicine; Referring Provider Obstetrics & Gynecology; Visit Provider Obstetrics & Gynecology
DX: O30.009 Twin pregnancy, unspecified number of placenta and unspecified number of amniotic sacs, unspecified trimester (principal); R82.998 Other abnormal findings in urine; Z3A.16 16 weeks gestation of pregnancy
CPT/HCPCS: 36415; 82105; 87086

== ENCOUNTER → 2024-01-25 14:50 | Outpatient (CLI) | payer OTHER, SELFPAY ==
[2020-01-26 13:40] VITALS: BMI 28.5
[2024-01-25 19:51] LABS: Creatinine Urine Random 121.1 mg/dL
[2024-01-25 19:55] LABS: Protein (Total) Urine Random < 5 mg/dL (0-12); Protein Creatinine Ratio Urine 0.04 GRAM/24H
== END ==
PROVIDERS: PCP Family Medicine; Visit Provider Obstetrics & Gynecology
DX: Z34.82 Encounter for supervision of other normal pregnancy, second trimester (principal); Z3A.25 25 weeks gestation of pregnancy
CPT/HCPCS: 82570; 84156

== ENCOUNTER → 2024-02-02 07:34 | Outpatient (CLI) | payer OTHER, SELFPAY ==
[2020-01-26 13:40] VITALS: BMI 28.5
[2024-02-02 09:43] LABS: Hematocrit 32.7 % (36-46)
[2024-02-02 10:05] LABS: GTT (PREG) 1 Hour PP 50gm Dose 141 mg/dL (76-139)
[2024-02-02 10:45] LABS: Thyroid Stimulating Hormone 0.695 uIU/mL (0.47-4.68)
== END ==
PROVIDERS: PCP Family Medicine; Referring Provider Obstetrics & Gynecology; Visit Provider Obstetrics & Gynecology
DX: Z34.82 Encounter for supervision of other normal pregnancy, second trimester (principal); Z3A.26 26 weeks gestation of pregnancy
CPT/HCPCS: 82950; 84443; 85014; 85018

== ENCOUNTER → 2024-02-15 16:31 | Outpatient (CLI) | payer OTHER, SELFPAY ==
[2020-01-26 13:40] VITALS: BMI 28.5
== END ==
PROVIDERS: PCP Family Medicine; Visit Provider Obstetrics & Gynecology
DX: R82.998 Other abnormal findings in urine (principal)
CPT/HCPCS: 87086

== ENCOUNTER → 2024-02-29 11:08 | Outpatient (CLI) | payer OTHER, SELFPAY ==
[2020-01-26 13:40] VITALS: BMI 28.5
== END ==
PROVIDERS: PCP Family Medicine; Visit Provider Obstetrics & Gynecology
DX: Z34.82 Encounter for supervision of other normal pregnancy, second trimester (principal); Z3A.30 30 weeks gestation of pregnancy
CPT/HCPCS: 87086

== ENCOUNTER 2024-03-15 09:17 | Observation (INO) | payer OTHER, SELFPAY ==
[2020-01-26 13:40] VITALS: BMI 28.5
== END 2024-03-15 10:17 | disposition home or self-care (01) ==
PROVIDERS: Admitting Provider Obstetrics & Gynecology; PCP Family Medicine; Referring Provider Obstetrics & Gynecology; Visit Provider Obstetrics & Gynecology
DX: O30.043 Twin pregnancy, dichorionic/diamniotic, third trimester (principal); Z3A.32 32 weeks gestation of pregnancy
CPT/HCPCS: 59025; G0378; G0379

== ENCOUNTER → 2024-03-21 06:53 | Outpatient (CLI) | payer OTHER, SELFPAY ==
[2020-01-26 13:40] VITALS: BMI 28.5
--- NOTE | 2024-03-21 06:54 | DI.US.S_ITS ---
PROCEDURE: US OB LIMITED INDICATIONS: Growth US OUTSIDE/PRIOR DATING DATA: IVF DEBBIE 05/06/2024 TECHNIQUE: Real-time scanning was performed of the fetuses, with image documentation and biometric measurements. COMPARISON: [facility], , US OB LIMITED, 11/18/2023, 14:24. FINDINGS: General: An intrauterine dichorionic-diamniotic twin is present, as evidenced by separate placentas, differing sexes, or an intervening membrane of greater than 2 mm. Composite amniotic fluid index: 8.6 cm. Maternal cervical canal: 3.1 cm long. Normal lower limit is 2.5 cm. FETUS A: Fetus is located on the maternal right side, and is in breech presentation. Largest amniotic fluid pocket: 3.0 cm, normal is 2-8 cm. Placental position is anterior , without previa. heart rate: 130 beats per minute. biometrics: Biparietal diameter: 8.3 cm 33 weeks 2 days Head circumference: 31.1 cm 34 weeks 5 days Abdominal circumference: 27.2 cm 31 weeks 2 days Femur length: 6.4 cm 33 weeks 0 days Clinically estimated gestational age: 33 weeks 3 days Composite gestational age from present scan: 33 weeks 1 day Estimated weight and percentile: 1940 g 14th percentile FETUS B: Fetus is located on the maternal left side, and is in left presentation. Largest amniotic fluid pocket: 4.7 cm, normal is 2-8 cm. Placental position is anterior, without previa. heart rate: 144 beats per minute. biometrics: Biparietal diameter: 8.2 cm 33 weeks 1 day Head circumference: 30.2 cm 33 weeks 4 days Abdominal circumference: 29.4 cm 33 weeks 3 days Femur length: 6.4 cm 32 weeks 6 days Clinically estimated gestational age: 33 weeks 3 days Composite gestational age from present scan: 33 weeks 2 days Estimated weight and percentile: 2152 g 36th percentile IMPRESSION: Single live intrauterine with gestational age of 33 weeks 1 day, 33 weeks 2 days for fetus A and B respectively. weights are the 14th and 36th percentiles for fetus A and B respectively. We strive to produce accurate, complete, and clear reports of imaging services. To assist us in improving patient care, this report was composed using standard report templates and voice recognition software. Therefore, it may contain abnormal punctuation, insertions and/or omissions. Occasional wrong-word or sound-alike substitutions may occur. Though we review the report and make efforts to correct it, we do recommend that the report be read carefully in proper context to recognize any text inaccuracies. Dictated by: Park Howard M.D. on 03/21/2024 at 14:02 Approved by: Park Howard M.D. on 03/21/2024 at 14:06
== END ==
PROVIDERS: PCP Family Medicine; Referring Provider Obstetrics & Gynecology; Visit Provider Obstetrics & Gynecology
DX: O30.043 Twin pregnancy, dichorionic/diamniotic, third trimester (principal); O09.813 Supervision of pregnancy resulting from assisted reproductive technology, third trimester; Z3A.33 33 weeks gestation of pregnancy
CPT/HCPCS: 76815; 76816

== ENCOUNTER 2024-03-21 07:35 | Outpatient (CLI) | payer OTHER, SELFPAY ==
[2020-01-26 13:40] VITALS: BMI 28.5
== END 2024-03-21 09:05 | disposition home or self-care (01) ==
LOC: LABOR 08:20 → OB 03-23 12:17
PROVIDERS: PCP Family Medicine; Referring Provider Obstetrics & Gynecology; Visit Provider Obstetrics & Gynecology
DX: O30.043 Twin pregnancy, dichorionic/diamniotic, third trimester (principal); Z3A.33 33 weeks gestation of pregnancy; O09.813 Supervision of pregnancy resulting from assisted reproductive technology, third trimester
CPT/HCPCS: 59025; 76815; 76816; G0378; G0379

== ENCOUNTER 2024-03-24 10:36 | Outpatient (CLI) | payer OTHER, SELFPAY ==
[2020-01-26 13:40] VITALS: BMI 28.5
== END 2024-03-24 11:38 | disposition home or self-care (01) ==
LOC: LABOR 11:25 → OB 03-27 06:47
PROVIDERS: PCP Family Medicine; Referring Provider Obstetrics & Gynecology; Visit Provider Obstetrics & Gynecology
DX: O30.003 Twin pregnancy, unspecified number of placenta and unspecified number of amniotic sacs, third trimester (principal); Z3A.33 33 weeks gestation of pregnancy
CPT/HCPCS: 59025; G0378; G0379

== ENCOUNTER 2024-03-28 09:26 | Outpatient (CLI) | payer OTHER, SELFPAY ==
[2020-01-26 13:40] VITALS: BMI 28.5
--- NOTE | 2024-03-28 10:00 | P.TNLD_ITS ---
Visit Information Visit Information Date of evaluation: 03/28/24 On-call OB Provider: Moon Ramos Reason for Evaluation: Yes non-stress test Vital Signs Vital Signs: reviewed in OBIX, within normal parameters [facility] Medical History (Updated 03/28/24 @ 09:08 by Natty Gracia MD) Gestational diabetes mellitus (GDM) Dichorionic diamniotic twin in third trimester Vision disorder Anxiety Painful menstrual periods Irregular menstrual cycle Infertility HSV-2 infection Hyperemesis gravidarum Mittelschmerz Depression Endometriosis (~2021) Cellulitis Dog bite of forearm Healthy adult Surgical History (Updated 11/23/23 @ 09:01 by Dmitry Willis MD) Anesthesia History of hysteroscopy (~04/2022) H/O laparoscopy (~04/2022) [place] teeth extracted Family History (Updated 11/02/23 @ 20:10 by Jade Buchanan) Father Sick sinus syndrome History of heart disease Hypertension Mother Depression Fibromyalgia Mental health problem Grandfather Bone cancer Grandmother Diabetes mellitus Social History marital status: number of children: 1 household members: spouse and children lives independently: Yes caregiver/support person: Yes housing: house pets and animals: Yes (1 dog) education level: high school occupational status: unemployed current occupational exposures/hazards: No special hyun needs: No travel history: recent (domestic only) seatbelt use: always water heater temp set < 120 deg: Yes working smoke detector in home: Yes fire extinguisher in home: Yes carbon monox detector in home: Yes firearms in home: Yes firearms unloaded and locked: Yes do you feel safe at home: Yes Smoking Status: Never smoker second hand exposure: No alcohol intake: former (rarely when not ) substance use type: does not use during the past year weight has: other (significant gain due to hormones for IVF, but 16 lb loss due to hyperemesis) well-balanced diet: daily or most days daily servings fruits/ve or more times/day caffeine: Yes (small cup coffee in AM) Type(s) of exercise: other (active w/ small child) Evaluation Evaluation Contraction Frequency (minutes): 5 Uterine Contraction Intensity: Mild Category of Tracing: Reactive (x2) Comments: Baby A- FHR 140, moderate variability, + accels, no decels Baby B- FHR 140, moderate variability, + accels, no decels Diagnosis, Plan/Disposition Final Diagnosis (1) Dichorionic diamniotic twin in third trimester: Status: Acute (2) Gestational diabetes mellitus (GDM): Status: Acute Plan/Disposition Plan: Follow up in clinic as scheduled OB Disposition: home
== END 2024-03-28 10:00 | disposition home or self-care (01) ==
LOC: LABOR 10:02 → OB 03-31 06:38
PROVIDERS: PCP Family Medicine; Referring Provider Student in an Organized Health Care Education/Training Program; Visit Provider Student in an Organized Health Care Education/Training Program
DX: O24.419 Gestational diabetes mellitus in pregnancy, unspecified control (principal); O30.043 Twin pregnancy, dichorionic/diamniotic, third trimester; Z3A.34 34 weeks gestation of pregnancy
CPT/HCPCS: 59025; 76815; 87653; G0378; G0379

== ENCOUNTER 2024-03-31 10:17 | Outpatient (CLI) | payer OTHER, SELFPAY ==
[2020-01-26 13:40] VITALS: BMI 28.5
== END 2024-03-31 12:08 | disposition home or self-care (01) ==
LOC: LABOR 10:35 → OB 04-03 10:12
PROVIDERS: PCP Family Medicine; Referring Provider Obstetrics & Gynecology; Visit Provider Obstetrics & Gynecology
DX: O30.043 Twin pregnancy, dichorionic/diamniotic, third trimester (principal); O09.813 Supervision of pregnancy resulting from assisted reproductive technology, third trimester; Z3A.34 34 weeks gestation of pregnancy
CPT/HCPCS: 59025; G0378; G0379

== ENCOUNTER 2024-04-04 09:29 | Outpatient (CLI) | payer OTHER, SELFPAY ==
[2020-01-26 13:40] VITALS: BMI 28.5
== END 2024-04-04 10:07 | disposition home or self-care (01) ==
LOC: LABOR 10:07 → OB 04-05 09:25
PROVIDERS: PCP Family Medicine; Referring Provider Obstetrics & Gynecology; Visit Provider Obstetrics & Gynecology
DX: O30.003 Twin pregnancy, unspecified number of placenta and unspecified number of amniotic sacs, third trimester (principal); O09.813 Supervision of pregnancy resulting from assisted reproductive technology, third trimester; O28.8 Other abnormal findings on antenatal screening of mother; R82.998 Other abnormal findings in urine; Z3A.35 35 weeks gestation of pregnancy
CPT/HCPCS: 59025; 87086; G0378; G0379

== ENCOUNTER → 2024-04-04 09:32 | Outpatient (CLI) | payer OTHER, SELFPAY ==
[2020-01-26 13:40] VITALS: BMI 28.5
== END ==
PROVIDERS: PCP Family Medicine; Visit Provider Obstetrics & Gynecology
DX: R82.998 Other abnormal findings in urine (principal)
CPT/HCPCS: 87086

== ENCOUNTER → 2024-04-05 06:43 | Outpatient (CLI) | payer OTHER, SELFPAY ==
[2020-01-26 13:40] VITALS: BMI 28.5
--- NOTE | 2024-04-05 06:44 | DI.US.S_ITS ---
PROCEDURE: US OB LIMITED INDICATIONS: EFW OUTSIDE/PRIOR DATING DATA: Last menstrual period (LMP): 08/20/2023 LMP-based estimated date of delivery (DEBBIE): 05/06/2024. First dating scan (date and location): Not applicable. Estimated date of delivery (DEBBIE) from first dating scan: Not applicable. The calculations are made using the clinical DEBBIE of 05/06/2024. TECHNIQUE: Real-time scanning was performed of the fetuses, with image documentation and biometric measurements. Endovaginal scanning: No COMPARISON: [facility], OB LIMITED, 03/28/2024, 7:59. FINDINGS: General: An intrauterine dichorionic-diamniotic twin is present, as evidenced by separate placentas, differing sexes, or an intervening membrane of greater than 2 mm. Amniotic fluid index (composite): 9.6 cm fetus a, 5.7 cm fetus B. Maternal cervical canal: Not visualized cm long. Normal lower limit is 2.5 cm. FETUS A: Fetus is located on the maternal right side, and is in breech presentation. Largest amniotic fluid pocket: 3.1 cm; normal range is 2-8 cm. Placental position is anterior , without previa. heart rate: 141 beats per minute. biometrics: Biparietal diameter: 8.8 cm, 35 week 2 day Head circumference: 32.4 cm, 36 week 5 day Abdominal circumference: 29.9 cm, 33 week 6 day Femur length: 6.8 cm, 35 week 1 day Clinically estimated gestational age: 35 week 4 day Composite gestational age from present scan: 35 week 2 day. Estimated weight and percentile: 2487 g, 25 percentile FETUS B: Fetus is located on the maternal left side, and is in transverse presentation. Largest amniotic fluid pocket: 2.6 cm; normal range is 2-8 cm. Placental position is anterior , without previa. heart rate: 136 beats per minute. biometrics: Biparietal diameter: 8.6 cm, 34 week 5 day Head circumference: 31.6 cm, 35 week 4 day Abdominal circumference: 31.1 cm, 35 week 0 day Femur length: 6.8 cm, 34 week 6 day Clinically estimated gestational age: 35 week 4 day Composite gestational age from present scan: 35 week 0 day Estimated weight and percentile: 2573 g, 34 percentile. IMPRESSION: Twin gestation as above. CRYSTAL 5.7 cm fetus B Approved by: Temo Arenas M.D. on 04/05/2024 at 20:47
== END ==
LOC: US 06:43
PROVIDERS: PCP Family Medicine; Referring Provider Obstetrics & Gynecology; Visit Provider Obstetrics & Gynecology
DX: O30.043 Twin pregnancy, dichorionic/diamniotic, third trimester (principal); O09.813 Supervision of pregnancy resulting from assisted reproductive technology, third trimester; Z3A.35 35 weeks gestation of pregnancy
CPT/HCPCS: 76802; 76812; 76815

== ENCOUNTER 2024-04-07 10:19 | Observation (INO) | payer OTHER, SELFPAY ==
[2020-01-26 13:40] VITALS: BMI 28.5
== END 2024-04-07 12:45 | disposition home or self-care (01) ==
PROVIDERS: Admitting Provider Obstetrics & Gynecology; PCP Family Medicine; Referring Provider Obstetrics & Gynecology; Visit Provider Obstetrics & Gynecology
DX: O30.003 Twin pregnancy, unspecified number of placenta and unspecified number of amniotic sacs, third trimester (principal); O09.813 Supervision of pregnancy resulting from assisted reproductive technology, third trimester; Z3A.35 35 weeks gestation of pregnancy
CPT/HCPCS: 59025; G0378; G0379

== ENCOUNTER 2024-04-11 14:01 | Outpatient (CLI) | payer OTHER, SELFPAY ==
[2020-01-26 13:40] VITALS: BMI 28.5
--- NOTE | 2024-04-11 16:27 | PM.OBTRLD ---
Visit Information Visit Information Date of evaluation: 04/11/24 On-call OB Provider: Moon Ramos Reason for Evaluation: Yes non-stress test [facility] Medical History (Updated 04/04/24 @ 09:43 by Dmitry Willis MD) Gestational diabetes mellitus (GDM) Dichorionic diamniotic twin in third trimester Vision disorder Anxiety Painful menstrual periods Irregular menstrual cycle Infertility HSV-2 infection Hyperemesis gravidarum Mittelschmerz Depression Endometriosis (~2021) Cellulitis Dog bite of forearm Healthy adult Surgical History (Updated 11/23/23 @ 09:01 by Dmitry Willis MD) Anesthesia History of hysteroscopy (~04/2022) H/O laparoscopy (~04/2022) [place] teeth extracted Family History (Updated 11/02/23 @ 20:10 by Jade Buchanan) Father Sick sinus syndrome History of heart disease Hypertension Mother Depression Fibromyalgia Mental health problem Grandfather Bone cancer Grandmother Diabetes mellitus Social History marital status: number of children: 1 household members: spouse and children lives independently: Yes caregiver/support person: Yes housing: house pets and animals: Yes (1 dog) education level: high school occupational status: unemployed current occupational exposures/hazards: No special hyun needs: No travel history: recent (domestic only) seatbelt use: always water heater temp set < 120 deg: Yes working smoke detector in home: Yes fire extinguisher in home: Yes carbon monox detector in home: Yes firearms in home: Yes firearms unloaded and locked: Yes do you feel safe at home: Yes Smoking Status: Never smoker second hand exposure: No alcohol intake: former (rarely when not ) substance use type: does not use during the past year weight has: other (significant gain due to hormones for IVF, but 16 lb loss due to hyperemesis) well-balanced diet: daily or most days daily servings fruits/ve or more times/day caffeine: Yes (small cup coffee in AM) Type(s) of exercise: other (active w/ small child) Evaluation Evaluation Contraction Frequency (minutes): 0 Category of Tracing: Reactive Comments: Baby A- 125, moderate variability, + accels, no decels Baby B- 130, moderate variability, + accels, no decels Diagnosis, Plan/Disposition Final Diagnosis (1) Dichorionic diamniotic twin in third trimester: Status: Acute Plan/Disposition Plan: Follow-up for delivery as scheduled. OB Disposition: home
== END 2024-04-11 15:01 | disposition home or self-care (01) ==
LOC: OB 04-12 09:20
PROVIDERS: PCP Family Medicine; Referring Provider Student in an Organized Health Care Education/Training Program; Visit Provider Student in an Organized Health Care Education/Training Program
DX: O30.043 Twin pregnancy, dichorionic/diamniotic, third trimester (principal); Z3A.36 36 weeks gestation of pregnancy
CPT/HCPCS: 59025; G0378; G0379

== ENCOUNTER 2024-04-13 05:47 | Inpatient (IN) | payer OTHER, SELFPAY ==
[2020-01-26 13:40] VITALS: BMI 28.5
[2024-04-13 07:03] LABS: Add Manual Diff / Slide Review NO; Basophils Absolute Auto 0 /uL (0-100); Basophils Percent Auto 0.3 % (0-2); Eosinophils Absolute Auto 300 /uL (0-450); Eosinophils Percent Auto 2.9 % (2-4); Hematocrit 34.3 % (36-46); Hemoglobin 11.6 g/dL (12.0-16.0); Lymphocytes Absolute Auto 1800 /uL (1100-4500); Lymphocytes Percent Auto 18.9 % (25-40); Mean Corpuscular HGB Conc 33.9 % (30-36); Mean Corpuscular Hemoglobin 31.3 PG (26-34); Mean Corpuscular Volume 92.3 fL (80-100); Monocytes Absolute Auto 1000 /uL (0-900); Monocytes Percent Auto 10.7 % (3-14); Neutrophils Absolute Auto 6400 /uL (1500-7000); Neutrophils Percent Auto 67.2 % (50-75); Platelet Count 235 X10^3/uL (150-400); Red Blood Cell Count 3.71 X10^6/uL (4.0-5.2); Red Cell Distribution Width 14.1 % (11.6-14.8); White Blood Cell Count 9.5 X10^3/uL (4.5-11.0)
[2024-04-13 07:04] VITALS: BP 132/85
[2024-04-13] MEDS: LACTATED RINGERS 1,000 ML 999 ML IV (07:40)
[2024-04-13] MEDS: CITRIC ACID/SODIUM CITRATE 15 ML SOLUTION 30 ML PO (07:45)
--- NOTE | 2024-04-13 07:47 | PM.OBHP.IH.1 ---
OB HPI Date/Time Date of admission: 04/13/24 Date Patient Seen: 04/13/24 Time Patient Seen: 07:47 History of Present Condition Chief complaint: INPT DEBBIE Calculator Estimated Delivery Date Method Current WG Current Estimate 05/06/24 Conception 36w 5d Other Estimates 05/05/24 Manual 36w 6d IVF embryo transfer of one 5d & one 6d on 08/20/23 # 2 Estimated Gestational Age (weeks): 36+5 : 3 Para: 1 care: good care, initiated at week # (12), number of visits (10 + MFM) and pounds weight gain (28) Dating criteria OB: LMP confirmed by 1st trimester US Ultrasounds: normal 1st trimester US and normal mid trimester US Obstetrical complications: other (Twins) Medical complications OB: none Indications Indication for induction OB: other (twins, MFM recommendation) Operative indications ( section): multiple gestation (transverse lie x 2) Preadmission Labs Last OB Lab Results: Blood Type O Positive 04/13/24 06:40 Antibody Screen Negative 04/13/24 06:40 Hct 34.3 % (36-46) L 04/13/24 06:40 Hgb 11.6 g/dL (12.0-16.0) L 04/13/24 06:40 Hep Bs Antigen Negative s/c (NEGATIVE) 10/27/23 10:59 Hepatitis C Antibody Negative s/c (NEGATIVE) 10/27/23 10:59 Rubella Antibody 11.5 IU/mL (>15) L 10/27/23 10:59 VZV IgG Antibody 2358 index (Immune >165) 10/27/23 10:59 Glucose 1 Hr 50 gm 141 mg/dL (76-139) H 02/02/24 09:10 Group B Strep (PCR) Neg for grp b strep 03/28/24 09:07 -: Chlamydia screen: negative, Gonorrhea screen: negative and Urine: negative -: PAP smear: Normal (08/05) Genetic Screens: Cell-free DNA: Normal (normal boy/girl) and Alpha-fetoprotein: Normal External Labs -: Urine: negative Prior (ies) Past Pregnancies Del. Date GA/Weeks Labor Lgth Wt Sex Route Outcome Anesthesia Place Delv Breastfeed Preg Comp Name 06/01/19 41 12 8 lb 4 oz Male vaginal live - full term epidural IH 6 months post-dates induction [place] 03/13/20 6 ectopic Delivery Date: 03/13/20 Last Updated by: Keyla Benoit RN Resolved w/ medications Evaluation Evaluation Baseline heart rate: 140 Variability: Moderate (11-25) monitor accelerations: Present Monitor Decelerations: Absent Status: Category l [facility] Medical History (Updated 04/04/24 @ 09:43 by Dmitry Willis MD) Gestational diabetes mellitus (GDM) Dichorionic diamniotic twin in third trimester Vision disorder Anxiety Painful menstrual periods Irregular menstrual cycle Infertility HSV-2 infection Hyperemesis gravidarum Mittelschmerz Depression Endometriosis (~2021) Cellulitis Dog bite of forearm Healthy adult Surgical History (Updated 11/23/23 @ 09:01 by Dmitry Willis MD) Anesthesia History of hysteroscopy (~04/2022) H/O laparoscopy (~04/2022) [place] teeth extracted Family History (Updated 11/02/23 @ 20:10 by Jade Buchanan) Father Sick sinus syndrome History of heart disease Hypertension Mother Depression Fibromyalgia Mental health problem Grandfather Bone cancer Grandmother Diabetes mellitus Social History marital status: number of children: 1 household members: spouse and children lives independently: Yes caregiver/support person: Yes housing: house pets and animals: Yes (1 dog) education level: high school occupational status: unemployed current occupational exposures/hazards: No special hyun needs: No travel history: recent (domestic only) seatbelt use: always water heater temp set < 120 deg: Yes working smoke detector in home: Yes fire extinguisher in home: Yes carbon monox detector in home: Yes firearms in home: Yes firearms unloaded and locked: Yes do you feel safe at home: Yes Smoking Status: Never smoker second hand exposure: No alcohol intake: former (rarely when not ) substance use type: does not use during the past year weight has: other (significant gain due to hormones for IVF, but 16 lb loss due to hyperemesis) well-balanced diet: daily or most days daily servings fruits/ve or more times/day caffeine: Yes (small cup coffee in AM) Type(s) of exercise: other (active w/ small child) Meds Home Medications and Allergies Home Medications Medication Instructions Recorded Confirmed Type doxylamine succinate 25 mg tablet 25 mg PO BEDTIME PRN 10/19/23 04/04/24 History (Unisom (doxylamine)) ondansetron 4 mg disintegrating 4 mg PO Q8H PRN nausea and 10/19/23 04/04/24 Rx tablet vomiting #30 tabs pyridoxine (vitamin B6) 25 mg 25 mg PO DAILY 10/19/23 04/04/24 History tablet vitamin-ferrous sulfate tab PO 10/21/23 04/04/24 History 27 mg iron-folic acid 0.8 mg tablet breast pump #1 ea 02/15/24 04/04/24 Rx valacyclovir 500 mg tablet 500 mg PO BID #60 tabs 02/23/24 04/04/24 Rx metformin 500 mg tablet 500 mg PO BIDWMEAL #60 tabs 03/01/24 04/04/24 Rx Allergies Allergy/AdvReac Type Severity Reaction Status Date / Time metoclopramide [From [facility]] AdvReac Anxiety Verified 04/04/24 09:12 OB Exam Narrative Exam Narrative: Generally: Patient is sitting up in bed, no acute distress Lungs: Clear to auscultation bilaterally Cardiovascular: Regular rate and rhythm Abdomen: Gravid Fundal height: 42 cm Extremities: No edema Objective Labs 04/13/24 06:40 Labs: Laboratory Results - last 24 hr 04/13/24 06:40 WBC 9.5 RBC 3.71 L Hgb 11.6 L Hct 34.3 L MCV 92.3 MCH 31.3 MCHC 33.9 RDW 14.1 Plt Count 235 Neut % (Auto) 67.2 Lymph % (Auto) 18.9 L [place] % (Auto) 10.7 Eos % (Auto) 2.9 Baso % (Auto) 0.3 Neut # (Auto) 6400 Lymph # (Auto) 1800 [place] # (Auto) 1000 H Eos # (Auto) 300 Baso # (Auto) 0 Assessment and Plan Assessment and Plan Assessment and Plan narrative: Assessment: 34-year-old 3 para 1 at 36-,5/7 weeks gestation with dichorionic/diamniotic twins Transverse lie x2 Plan: Primary section The risks, benefits, and alternatives to the procedure were explained to the patient. The risks including bleeding, infection, injury to the bowel, bladder, or ureters. She understands these risks and agrees to proceed. A full par Q was held and consent form was signed. Time-Based Coding :: [TOTAL MINUTES] spent with patient and on the chart (including review of chart, obtaining history, exam, reviewing outside data, placing orders, documenting exam and treatment plan, and counseling patient) on [DATE].
--- NOTE | 2024-04-13 08:02 | PM.PREOP ---
Pre-operative Note Interval Note History & Physical reviewed/Exam performed by Physician: Yes Changes to H&P: No H&P completed within 30 days and has changed as indicated here:: 04/13/24
[2024-04-13] MEDS: CEFAZOLIN 2 GM/100 ML PREMIX 100 ML IV (08:05)
--- NOTE | 2024-04-13 08:30 | SUR.OPER ---
Supine on Padded OR bed, head on pillow, safety belt at thigh, arms secured on padded arm boards at <90 degrees abduction. Bump under right buttock. Legs uncrossed with pillow under knees, gel pad to heels, tape over blanket to lower legs.
[2024-04-13] MEDS: LACTATED RINGERS 1,000 ML 42 ML IV (08:37)
[2024-04-13 09:16] VITALS: BP 108/65; PULSE 78; RESP 12; TEMP 36.1; O2SAT 100
[2024-04-13 09:21] VITALS: BP 126/58; PULSE 75; RESP 12; O2SAT 100
--- NOTE | 2024-04-13 09:22 | PM.OBCS.1 ---
Operative Date/Time/Diagnoses Date of procedure: 04/13/24 Time of procedure: 09:22 Pre-op diagnosis: 36 5/7 weeks gestation Di/di twins Baby A, 13%ile Post-op diagnosis: same Procedure & Clinicians Procedure: Primary low-transverse section Same procedure as scheduled: Yes Indications: 34-year-old 3 para 1 at 36-,5/7 weeks gestation with baby a at the thirteenth percentile. Baby's growth has been dropping off over the last 8 weeks. Patient is seeing Maternal- medicine and they recommend section at 36+ 5. Surgeon: Lidia Jeff Click Yes if Unassisted: No As400 Administrator: Moon Ramos Reason for As400 Administrator: The assistant warehouse manager was necessary to retract upon entry into the abdomen and uterus. She assisted with delivery with fundal pressure. She assisted with closure with retraction, clipping of suture, and closing of the contralateral fascia. Anesthesia Type: Spinal (With Duramorph) Operative Notes Findings: Baby A, live female in the breech presentation Baby B, live male in the breech presentation Normal uterus, tubes, and ovaries Closure Type: primary Specimen(s): cord blood and placenta Intraoperative meds administered: Acetaminophen, Duramorph, Ketorolac and Pitocin Applied: Catheter (To continuous drainage) Estimated Blood Loss (mL): 600 Procedure in detail: The patient was taken to the operating room where she was placed in the seated position. Spinal anesthesia with Duramorph was administered. She was then placed in the dorsal supine position with a leftward tilt. She was prepped and draped in the usual sterile fashion. A timeout was performed. After spinal analgesia was found to be adequate, a Pfannenstiel skin incision was made 2 fingerbreadths above the pubic symphysis and carried through to the underlying layer fascia. The fascia was nicked in the midline, and the incision extended bilaterally with the Raymundo scissors. The superior aspect of the fascial incision was grasped with a Teresita clamps, elevated, and the underlying rectus muscles dissected off sharply and bluntly. Attention was then turned to the inferior aspect of this incision which in a similar fashion was grasped with a [place] clamps, elevated, and the underlying rectus muscles dissected off sharply and bluntly. The rectus muscles were in the midline. The peritoneum was identified, grasped between 2 hemostats, and entered sharply with the Metzenbaum scissors. This incision was extended superiorly and inferiorly with good visualization of the bladder. The bladder blade was inserted. The vesicouterine peritoneum was identified, grasped with the pickup, and entered sharply with the Metzenbaum scissors. This incision was extended bilaterally, and the bladder flap was created digitally. The bladder blade was reinserted. The lower uterine segment was incised in a transverse fashion with the scalpel. Upon entering the first amniotic sac there was a small amount of clear amniotic fluid. The was delivered by total breech extraction. The nose and mouth were suctioned with bulb suction. The baby was wrapped in a warm blanket. The second infant was delivered by total breech extraction. Wrapped in a warm blanket. After 1 minute, the cords or double clamped and cut. Cord bloods were obtained. The placenta was delivered manually. The uterus was cleared of all clots and debris. The uterine incision was repaired with 1. Chromic in a running interlocking fashion. A second layer of the same suture was used for an imbricating layer. Hemostasis was achieved. The tubes and ovaries were examined and were found to be normal. The gutters were cleared of all clots and debris. The bladder flap was reapproximated using 2-0 Vicryl in a running fashion. The parietal peritoneum was closed using 2-0 Vicryl in a running fashion. The fascia was reapproximated using 0 Vicryl in a running fashion. The subcutaneous layer was copiously irrigated with warm normal saline. 5 simple interrupted sutures of 3-0 Vicryl were placed to reapproximate the subcutaneous layer. The skin was closed with 4-0 Monocryl in a subcuticular fashion. Steri-Strips were placed. An Aquacel dressing was placed. The uterus was expressed of a small amount of old blood. Sponge, lap, and instrument counts were correct x-2. The patient tolerated the procedure well, and was taken to PACU in stable condition. Complications: none Baby 1: Gender: Female Presentation: breech Details: footling Cord Vessel Description: 3 Vessels score (1 min): 9 score (5 min): 9 weight: 5 lb 15.4 oz 2: Gender: Male Presentation: breech Details: footling Placental Delivery Description: Expressed Cord Vessel Description: 3 Vessels score (1 min): 7 score (5 min): 9 weight: 5 lb 15.8 oz Post-operative Condition: stable Disposition: PACU Aftercare: routine postop
[2024-04-13 09:26] VITALS: BP 110/52; PULSE 67; RESP 12; O2SAT 99
[2024-04-13] MEDS: OXYCODONE IR 5 MG TABLET PO ×2 (09:30→12:27)
[2024-04-13 09:31] VITALS: BP 115/65; PULSE 73; RESP 14; O2SAT 99
[2024-04-13] MEDS: ONDANSETRON 4 MG/2 ML INJ IV (13:42)
[2024-04-13] MEDS: KETOROLAC 30 MG/ML VIAL IV ×2 (15:24→21:25)
[2024-04-13] MEDS: hydrOXYzine 50 MG/ML INJ 25 MG IM (17:15)
[2024-04-14] MEDS: OXYCODONE IR 5 MG TABLET PO ×2 (00:55→09:16)
[2024-04-14] MEDS: ACETAMINOPHEN 325 MG TABLET 650 MG PO ×4 (00:55→18:40)
[2024-04-14] MEDS: KETOROLAC 30 MG/ML VIAL IV (03:34)
[2024-04-14 06:44] LABS: Hematocrit 25.8 % (36-46); Hemoglobin 8.8 g/dL (12.0-16.0)
[2024-04-14] MEDS: diphenhydrAMINE 50 MG/ML VIAL 25 MG IV (07:33)
[2024-04-14] MEDS: diphenhydrAMINE 25 MG TABLET PO (07:55)
[2024-04-14] MEDS: DOCUSATE 100 MG CAPSULE PO (09:00)
[2024-04-14] MEDS: IBUPROFEN 600 MG TABLET PO ×3 (09:15→22:25)
--- NOTE | 2024-04-14 10:11 | P.PNOB_ITS ---
Subjective - OB Subjective Patient comments: no complaints [place] baby status: doing well and nursing well (x2) feeding status: exclusively breast feeding Date Patient Seen: 04/14/24 Time Patient Seen: 11:40 Interval history: Postop day # 1 status post primary low-transverse section for twins both in the breech presentation. Bleeding is tapering. Patient has not slept much. Pain is well controlled. She is passing flatus. She has voided without the catheter. Exam Vital Signs (past 8 hours): Oxygen Delivery Method Room Air Narrative Exam Narrative: Generally: Patient is sitting up in bed, nursing 's, no acute distress Lungs: Clear to auscultation bilaterally Cardiovascular: Regular rate and rhythm Fundus: Firm at U +1 Incision: Clean dry and intact with Aquacel dressing Extremities: Trace edema, negative [place] Objective Labs 04/14/24 06:23 Labs: Laboratory Results - last 24 hr 04/14/24 06:23 Hgb 8.8 L Hct 25.8 L Assessment & Plan Plan day: 1 plan OB: routine postop care Comments: Anticipate discharge April 15, 2024 Time-Based Coding :: [TOTAL MINUTES] spent with patient and on the chart (including review of chart, obtaining history, exam, reviewing outside data, placing orders, documenting exam and treatment plan, and counseling patient) on [DATE].
[2024-04-14] MEDS: OXYCODONE IR 10 MG TABLET PO ×2 (14:01→19:44)
[2024-04-14] MEDS: IRON SUCROSE 300 MG in SODIUM CHLORIDE 0.9% 250 ML 176.667 MG IV (17:46)
[2024-04-15] MEDS: OXYCODONE IR 10 MG TABLET PO ×4 (00:03→13:12)
[2024-04-15] MEDS: ACETAMINOPHEN 325 MG TABLET 650 MG PO ×3 (00:46→13:13)
[2024-04-15] MEDS: IBUPROFEN 600 MG TABLET PO ×3 (03:58→14:02)
[2024-04-15] MEDS: DOCUSATE 100 MG CAPSULE PO (08:17)
[2024-04-15] MEDS: PRENATAL VIT,CALC/IRON/FOLIC 1 TABLET 1 TAB PO (08:17)
--- NOTE | 2024-05-15 15:37 | P.DS_ITS ---
Discharge Providers Provider Date of admission: 04/13/24 05:47 Discharge Date: 04/15/24 Primary care physician: Katelin Cordova MD Consults: 04/13/24 09:36 Consult to Lead Sustainability Specialist Routine Comment: Discharge provider: Lidia Jeff MD Summary Hospital Course Date Patient Seen: 04/15/24 Time Patient Seen: 10:30 Diagnoses: 36+5 weeks gestation Dichorionic/diamniotic twins 13th %ile baby A Primary low transverse C section Spinal anesthesia Hospital Course: Patient is a 34 year old who presented on 04/13/24 for a scheduled primary C section of di/di twins at 36+5 wks gestation due to baby A at 13th %ile. Pt had been seeing MFM and this was their recommendation. She underwent this procedure without complication. Her course was unremarkable. She was discharged to home on 04/15/24. She was ambulating independently. She was tolerating a diet. No N/V. She was voiding without the catheter. Her pain was well controlled. BF was going well. Peripartum Data Infant Delivery Method: Section Procedures: Spinal anesthesia Primary low transverse C section complications: none [place] 1: Gender: Female Disposition of : home 2: Gender: Male Disposition of : home Status at Discharge Cognitive/behavioral status at discharge: oriented Functional status at discharge: independent ambulation Overall status at discharge: patient is progressing back to baseline Time Spent with Patient Time attestation: Total time spent providing and/or coordinating discharge services: Time spent: Less than 30 minutes Objective Labs 04/14/24 06:23 Exam Vital Signs (past 8 hours): Oxygen Delivery Method Room Air Narrative Exam Narrative: Gen: NAD Lungs: CTA bilat CV: RRR Fundus: Firm at U Incision: C/D/I with Aquacel dressing Ext: 1+ edema, negative Lynette's Discharge Plan Discharge Plan Patient Disposition: Home Provider Discharge Comment: Call with fever, chills, redness or drainage around the incision, or bleeding vaginally more than a pad in an hour Ibuprofen 600 mg every 6 hours as needed Tylenol 650 mg every 6 hours as needed Stool softeners until bowel returns to normal Discharge orders & Medications Prescriptions: New oxycodone 10 mg tablet 10 mg PO Q6H PRN (Reason: pain) Qty: 30 0RF docusate sodium [Colace] 100 mg capsule 200 mg PO DAILY Qty: 30 0RF Continued vit-ferrous sulfat-FA 27 mg iron- 0.8 mg tablet See Rx Instructions .ROUTE .COMPLEX Rx Instructions: take as directed Discontinued pyridoxine (vitamin B6) 25 mg tablet 25 mg PO DAILY valacyclovir 500 mg tablet 500 mg PO BID Qty: 60 6RF No Action (DME) breast pump Device See Rx Instructions .Route Qty: 1 0RF Rx Instructions: [employer] - As directed Follow up/Referrals: Lidia Jeff MD [Physician] - 04/19/24 11:45 am ( 6 week visit on 05/25/2024 at 11:30 with an 11:15 check in. Thank you!) Diet/Activity/Treatments Diet: Diet as Tolerated Activity: No heavy lifting Skin/Wound/Dressing Care Report to your healthcare provider any signs of infection, such as:: chills, fever, increased pain, unusual drainage and unusual redness Dressing: Remove dressing in 1 week at home Visit Report/Discharge Packet Instructions: DI for , DI for Prescription Opioid Use Stand Alone Forms: Patient Portal/API, Stroke Signs & Symptoms Discharge Data Primary Care Provider: Katelin Cordova
== END 2024-04-15 14:45 | disposition home or self-care (01) | DRG 788 ==
PROVIDERS: Admitting Provider Obstetrics & Gynecology; PCP Family Medicine; Referring Provider Obstetrics & Gynecology; Visit Provider Obstetrics & Gynecology
PROC: 10D00Z1 Extraction of Products of Conception, Low, Open Approach (ICD-10-PCS; CPT 59514; principal; 2024-04-13 07:45)
DX: O32.2XX1 Maternal care for transverse and oblique lie, fetus 1 (principal); Z37.2 Twins, both liveborn; O32.2XX2 Maternal care for transverse and oblique lie, fetus 2; Z3A.36 36 weeks gestation of pregnancy
CPT/HCPCS: 36415; 59050; 59510; 59514; 85014; 85018; 85025; 86850; 86900; 86901; J0690; J1100; J1200; J1756; J1885; J2274; J2405; J3410

== ENCOUNTER 2024-07-13 13:53 | Emergency (ER) | payer OTHER, SELFPAY ==
[2020-01-26 13:40] VITALS: BMI 28.5
[2024-07-13 14:02] VITALS: BP 125/68; PULSE 75; RESP 18; TEMP 37.2; O2SAT 98; BMI 28.2
[2024-07-13 15:04] LABS: Urine Volume 10mL (spun)
[2024-07-13 15:05] LABS: Bacteria Urine Few (2-10); Culture Indicated Urine Specimen Cultured; RBC Urine 10-30/HPF (0-5/HPF); Squamous Epithelial Cell Urine 1-5 /HPF (0-5/HPF); WBC Urine 5-10/HPF (0-5/HPF)
--- NOTE | 2024-07-13 16:08 | DI.US.S_ITS ---
PROCEDURE: US PELVIC COMPLETE INDICATIONS: HEAVY VAGINAL BLEEDING. 3 MONTHS POST . TECHNIQUE: Real-time scanning was performed of the pelvic organs, with image documentation. Additional endovaginal scanning was necessary due to incomplete visualization of the adnexal and endometrial structures by transabdominal scanning. COMPARISON: [facility], , US PELVIC COMPLETE, 03/29/2020, 9:56. FINDINGS: Uterus: Uterus is anteverted and normal in size at 8.2 x 3.5 x 4.2 cm. The myometrium is homogeneous. The endometrium measures 4 mm combined thickness. Ovaries: The right ovary measures 1.7 x 1.5 x 2.8 cm, with a calculated ovarian volume of 3.7 cc. The left ovary measures 2.0 x 1.2 x 2.4 cm, with a calculated ovarian volume of 3 cc. The ovaries have a normal sonographic appearance. Less than 12 follicles can be seen in each ovary. No adnexal masses are seen. Other: No pathologic free abdominal or pelvic fluid. IMPRESSION: Normal pelvic ultrasound. Endometrium measures 4 millimeters in thickness, without measurable endometrial mass. We strive to produce accurate, complete, and clear reports of imaging services. To assist us in improving patient care, this report was composed using standard report templates and voice recognition software. Therefore, it may contain abnormal punctuation, insertions and/or omissions. Occasional wrong-word or sound-alike substitutions may occur. Though we review the report and make efforts to correct it, we do recommend that the report be read carefully in proper context to recognize any text inaccuracies. Dictated by: Kenneth Aguero M.D. on 07/13/2024 at 16:49 Approved by: Kenneth Aguero M.D. on 07/13/2024 at 16:50
[2024-07-13 16:11] LABS: Add Manual Diff / Slide Review NO; Basophils Absolute Auto 100 /uL (0-100); Basophils Percent Auto 0.9 % (0-2); Eosinophils Absolute Auto 200 /uL (0-450); Eosinophils Percent Auto 2.5 % (2-4); Hematocrit 40.3 % (36-46); Hemoglobin 13.3 g/dL (12.0-16.0); Lymphocytes Absolute Auto 3000 /uL (1100-4500); Lymphocytes Percent Auto 32.3 % (25-40); Mean Corpuscular HGB Conc 33.1 % (30-36); Mean Corpuscular Hemoglobin 28.8 PG (26-34); Monocytes Absolute Auto 600 /uL (0-900); Monocytes Percent Auto 6.8 % (3-14); Neutrophils Absolute Auto 5300 /uL (1500-7000); Neutrophils Percent Auto 57.5 % (50-75); Platelet Count 403 X10^3/uL (150-400); Red Blood Cell Count 4.63 X10^6/uL (4.0-5.2); Red Cell Distribution Width 14.4 % (11.6-14.8); White Blood Cell Count 9.2 X10^3/uL (4.5-11.0)
[2024-07-13 16:17] LABS: BUN Creatinine Ratio 18.3 (6-22); Blood Urea Nitrogen 13 mg/dL (7-17); Calcium 9.3 mg/dL (8.4-10.2); Carbon Dioxide 25 mmol/L (22-32); Chloride 103 mmol/L (98-107); Estimated Glomerular Filt Rate > 60 mL/min (>60); Glucose 83 mg/dL (70-100); HEMOLYSIS < 15 (0-50); Potassium 4.2 mmol/L (3.4-5.1); Sodium 138 mmol/L (137-145)
[2024-07-13 18:07] VITALS: BP 136/85; PULSE 75; RESP 15; TEMP 36.9; O2SAT 100
--- NOTE | 2024-07-13 18:14 | ED_ITS ---
HPI - General Adult General Chief complaint: Vaginal Bleeding Stated complaint: vaginal bleeding sent by Dr. Willis Time Seen by Provider: 07/13/24 16:08 Source: patient Mode of arrival: Ambulatory History of Present Illness HPI narrative: twin delivery via face 3 months ago doing well. Has had some spotting after intercourse, had a very heavy menstrual cycle 2 weeks ago. After intercourse last night she had very heavy brighter red vaginal bleeding that over the 24 hours has slowed but she comes into the ER for further evaluation. She notices some mild cramping in her low back. Slight urinary urgency but no dysuria or fevers. No other abdominal pain. Related Data Home Medications Medication Instructions Recorded Confirmed vitamin-ferrous sulfate See Rx Instructions .Route .COMPLEX 10/21/23 05/25/24 27 mg iron-folic acid 0.8 mg tablet Previous Rx's Medication Instructions Recorded breast pump #1 ea 02/15/24 docusate sodium 100 mg capsule 200 mg (2 x 100 mg) PO DAILY #30 04/15/24 (Colace) caps oxycodone 10 mg tablet 10 mg PO Q6H PRN pain #30 tabs 04/15/24 Allergies Allergy/AdvReac Type Severity Reaction Status Date / Time metoclopramide [From Reglan] AdvReac Anxiety Verified 05/25/24 11:54 Review of Systems Review of Systems Narrative: Pertinent positive and negative findings as per HPI Patient History Medical History Gestational diabetes mellitus (GDM) Dichorionic diamniotic twin in third trimester Vision disorder Anxiety Painful menstrual periods Irregular menstrual cycle Infertility HSV-2 infection Hyperemesis gravidarum Mittelschelizabethz Depression Endometriosis (~2021) Cellulitis Dog bite of forearm Healthy adult Surgical History Anesthesia History of hysteroscopy (~04/2022) H/O laparoscopy (~04/2022) [place] teeth extracted Family History Father Sick sinus syndrome History of heart disease Hypertension Mother Depression Fibromyalgia Mental health problem Grandfather Bone cancer Grandmother Diabetes mellitus Social History marital status: number of children: 1 household members: spouse and children lives independently: Yes caregiver/support person: Yes housing: house pets and animals: Yes (1 dog) education level: high school occupational status: unemployed current occupational exposures/hazards: No special hyun needs: No travel history: recent (domestic only) seatbelt use: always water heater temp set < 120 deg: Yes working smoke detector in home: Yes fire extinguisher in home: Yes carbon monox detector in home: Yes firearms in home: Yes firearms unloaded and locked: Yes do you feel safe at home: Yes Smoking Status: Never smoker second hand exposure: No alcohol intake: former (rarely when not ) substance use type: does not use during the past year weight has: other (significant gain due to hormones for IVF, but 16 lb loss due to hyperemesis) well-balanced diet: daily or most days daily servings fruits/ve or more times/day caffeine: Yes (small cup coffee in AM) Type(s) of exercise: other (active w/ small child) Smoking Status: Never smoker alcohol intake frequency: other Substance Use Type: does not use Exam Initial Vital Signs Initial Vital Signs: Vital Signs Temperature 98.9 F 07/13/24 14:02 Pulse Rate 75 07/13/24 14:02 Respiratory Rate 18 07/13/24 14:02 Blood Pressure 125/68 07/13/24 14:02 Pulse Oximetry 98 07/13/24 14:02 Oxygen Delivery Method Room Air 07/13/24 14:02 General: Alert appropriate in no acute distress Respiratory: Able to speak in full sentences, no obvious respiratory distress Skin: No obvious rashes, warm and dry Neurologic: Grossly intact no obvious asymmetries or abnormalities Psych: appropriate insight and affect, cooperative Course Orders Ordered: ED Orders 07/13/24 14:10 Urine Culture Stat Urine Microscopic Stat 07/13/24 15:47 Basic Metabolic Panel Stat Complete Blood Count AUTO DIFF Stat Type and Screen Stat 07/13/24 16:08 US pelvic complete Stat Ondansetron HCl (Ondansetron 4 Mg/2 Ml Inj) 4 mg IV NOW PRN PRN Reason: Nausea And Vomiting Ondansetron HCl (Ondansetron 4 Mg Odt) 4 mg SL NOW PRN PRN Reason: Nausea And Vomiting Vital Signs Vital signs: Vital Signs - 8 hr 10/31/24 14:02 07/13/24 18:07 Temperature 98.9 F 98.4 F Pulse Rate 75 75 Respiratory Rate 18 15 Blood Pressure 125/68 136/85 Pulse Oximetry 98 100 Oxygen Delivery Method Room Air Room Air Medical Decision Making Lab Data 07/13/24 15:47 07/13/24 15:47 Labs: Lab Results 07/13/24 07/13/24 Range/Units 14:10 15:47 WBC 9.2 (4.5-11.0) X10^3/uL RBC 4.63 (4.0-5.2) X10^6/uL Hgb 13.3 (12.0-16.0) g/dL Hct 40.3 (36-46) % MCV 87.0 (80-100) fL MCH 28.8 (26-34) PG MCHC 33.1 (30-36) % RDW 14.4 (11.6-14.8) % Plt Count 403 H (150-400) X10^3/uL Neut % (Auto) 57.5 (50-75) % Lymph % (Auto) 32.3 (25-40) % [place] % (Auto) 6.8 (3-14) % Eos % (Auto) 2.5 (2-4) % Baso % (Auto) 0.9 (0-2) % Neut # (Auto) 5300 (0067-4995) /uL Lymph # (Auto) 3000 (9418-5802) /uL [place] # (Auto) 600 (0-900) /uL Eos # (Auto) 200 (0-450) /uL Baso # (Auto) 100 (0-100) /uL Sodium 138 (137-145) mmol/L Potassium 4.2 (3.4-5.1) mmol/L Chloride 103 (98-107) mmol/L Carbon Dioxide 25 (22-32) mmol/L BUN 13 (7-17) mg/dL Creatinine 0.71 (0.52-1.04) mg/dL Estimated GFR > 60 (>60) mL/min BUN/Creatinine Ratio 18.3 (6-22) Glucose 83 (70-100) mg/dL Calcium 9.3 (8.4-10.2) mg/dL Urine RBC 10-30/hpf H (0-5/HPF) Urine WBC 5-10/hpf H (0-5/HPF) Ur Squamous Epith Cells 1-5 /hpf (0-5/HPF) Urine Bacteria Few (2-10) H (None) Ur Culture Indicated? Specimen cultured Vol Urine Centrifuged 10ml (spun) Blood Type O Positive Antibody Screen Negative Point of Care Testing Test Results Negative Urine Dip Bedside Urine Glucose Negative Bedside Urine Bilirubin - Negative Bedside Urine Ketone - Negative Urine Specific [place] 1.020 Bedside Urine Occult Blood +++ Bedside Urine pH 6.0 Bedside Urine Protein - Negative Bedside Urine Urobilinogen - Negative Bedside Urine Nitrite - Negative Bedside Urine Leukocytes - Negative Esterase Point of care testing: Point of Care Testing Test Results Negative Urine Dip Bedside Urine Glucose Negative Bedside Urine Bilirubin - Negative Bedside Urine Ketone - Negative Urine Specific [place] 1.020 Bedside Urine Occult Blood +++ Bedside Urine pH 6.0 Bedside Urine Protein - Negative Bedside Urine Urobilinogen - Negative Bedside Urine Nitrite - Negative Bedside Urine Leukocytes - Negative Esterase MDM Narrative Medical decision making narrative: 34-year-old woman recent delivery. Normal menstrual cycle 2 weeks ago, brighter red vaginal bleeding after intercourse last night. She would noticed some spotting earlier. Patient describes symptoms and provides history Labs are notable for a normal H&H at 13.3 and 40.3 with no leukocytosis Chemistries are reassuring Urine has red blood cells occasional white cell few bacteria has been cultured we will await culture results prior to treating with the antibiotics On exam she is alert and appropriate in no acute distress. Pelvic exam is deferred in the emergency department Pelvic ultrasound shows anteverted normal-sized uterus 8 x 3-1/2 x 4 cm. Homogeneous myometrium measuring 4 mm. Ovaries are unremarkable. No pathologic free abdominal or pelvic fluid Discussion: 34-year-old woman with increasing spotting post intercourse worse over the last 24 hours seems to be slowing at this point. No evidence of obvious infection, acute anemia, retained products or uterine abnormalities. Patient is not . At this point reassurance is given. She will follow up with her primary OBGYN, Dr. Willis. It did recommend that she avoid penetrate of vaginal sex until she has had a chance to talk with him. It may be that she has a superficial blood vessel over her surface that is causing problems. No evidence of life-threatening abnormality, reason for hospital admission or further imaging at this time she is safe for discharge Discharge Plan Departure Patient Disposition: Home Clinical Impression: Postcoital bleeding Instructions: DI for Vaginal Bleeding Activity Restrictions/Additional Instructions: Thank you for coming in today You are not significantly anemic, your body seems to have recovered nicely after your . There was no sign of obvious infection. Your urine has been cultured and if this does return positive we will contact you with a prescription for antibiotic Please contact Dr. Willis's office to talk to him about the bleeding after intercourse. Sometimes there is a small blood vessel on the surface of your cervix that is causing the problem. If you find that you are getting worse or develop any new symptoms, please feel free to return to the emergency department for further evaluation. Prescriptions: No Action vit-ferrous sulfat-FA 27 mg iron- 0.8 mg tablet See Rx Instructions .ROUTE .COMPLEX Rx Instructions: take as directed (DME) breast pump Device See Rx Instructions .Route Qty: 1 0RF Rx Instructions: [employer] - As directed oxycodone 10 mg tablet 10 mg PO Q6H PRN (Reason: pain) Qty: 30 0RF docusate sodium [Colace] 100 mg capsule 200 mg PO DAILY Qty: 30 0RF Referrals: Katelin Cordova MD [Primary Care Provider] - Stand Alone Forms: Patient Portal/API/Survey
== END 2024-07-13 18:38 | disposition home or self-care (01) ==
PROVIDERS: Emergency Provider Emergency Medicine; PCP Family Medicine
DX: N93.0 Postcoital and contact bleeding (principal); M54.50 Low back pain, unspecified
CPT/HCPCS: 36415; 76830; 76856; 80048; 81003; 81015; 81025; 85025; 86850; 86900; 86901; 87086; 87147; 99282; 99284

== ENCOUNTER → 2024-07-14 14:31 | Outpatient (CLI) | payer OTHER, SELFPAY ==
[2020-01-26 13:40] VITALS: BMI 28.5
[2024-07-14 22:56] LABS: Urine N gonorrhoeae NOT DETECTED
[2024-07-14 23:47] LABS: Urine Chlamydia NOT DETECTED
== END ==
PROVIDERS: Obstetrics & Gynecology; PCP Family Medicine; Referring Provider Family Medicine; Visit Provider Family Medicine
DX: J02.9 Acute pharyngitis, unspecified (principal); N93.0 Postcoital and contact bleeding
CPT/HCPCS: 87070; 87491; 87591

== ENCOUNTER → 2024-12-22 10:54 | Outpatient (CLI) | payer OTHER, SELFPAY ==
[2020-01-26 13:40] VITALS: BMI 28.5
[2024-12-22 12:14] LABS: Add Manual Diff / Slide Review NO; Basophils Absolute Auto 0 /uL (0-100); Basophils Percent Auto 0.7 % (0-2); Eosinophils Absolute Auto 100 /uL (0-450); Eosinophils Percent Auto 2.3 % (2-4); Hematocrit 40.1 % (36-46); Hemoglobin 13.4 g/dL (12.0-16.0); Lymphocytes Absolute Auto 2200 /uL (1100-4500); Lymphocytes Percent Auto 35.7 % (25-40); Mean Corpuscular HGB Conc 33.5 % (30-36); Mean Corpuscular Hemoglobin 29.8 PG (26-34); Mean Corpuscular Volume 88.9 fL (80-100); Monocytes Absolute Auto 500 /uL (0-900); Monocytes Percent Auto 7.3 % (3-14); Neutrophils Absolute Auto 3400 /uL (1500-7000); Platelet Count 379 X10^3/uL (150-400); Red Blood Cell Count 4.51 X10^6/uL (4.0-5.2); White Blood Cell Count 6.2 X10^3/uL (4.5-11.0)
[2024-12-22 12:30] LABS: Uric Acid 5.1 mg/dL (2.5-6.2)
[2024-12-22 12:34] LABS: Rheumatoid Factor < 8.6 IU/mL (<12.0)
[2024-12-22 13:17] LABS: Erythrocyte Sedimentation Rate 15 MM/HR (0-20)
[2024-12-25 18:36] LABS: CCP Antibodies IgG/IgA 8 units (0-19)
== END ==
LOC: LAB 10:54
PROVIDERS: PCP Family Medicine; Referring Provider Family Medicine; Visit Provider Family Medicine
DX: N94.6 Dysmenorrhea, unspecified (principal); N92.6 Irregular menstruation, unspecified; M25.462 Effusion, left knee; M25.40 Effusion, unspecified joint
CPT/HCPCS: 36415; 84550; 85025; 85651; 86200; 86430

== ENCOUNTER → 2024-12-29 11:54 | Outpatient (CLI) | payer OTHER, SELFPAY ==
[2020-01-26 13:40] VITALS: BMI 28.5
--- NOTE | 2024-12-29 11:55 | DI.RAD.S_ITS ---
PROCEDURE: XR KNEE LT 3V INDICATIONS: Left knee pain TECHNIQUE: 3 views of the knee were acquired. COMPARISON: None. FINDINGS: Bones: There are no osseous abnormalities. Joints: The tibialfemoral and patellofemoral joints are normal in width and alignment without arthritic change. . Small effusion. Soft tissues: Normal IMPRESSION: Small effusion. . Dictated by: Rodney Dia M.D. on 01/01/2025 at 8:53 Approved by: Rodney Dia M.D. on 01/01/2025 at 8:53
== END ==
PROVIDERS: PCP Family Medicine; Referring Provider Family Medicine; Visit Provider Family Medicine
DX: M25.562 Pain in left knee (principal); M25.462 Effusion, left knee
CPT/HCPCS: 73562

== ENCOUNTER → 2025-01-05 06:51 | Outpatient (CLI) | payer OTHER, SELFPAY ==
[2020-01-26 13:40] VITALS: BMI 28.5
--- NOTE | 2025-01-05 06:51 | DI.US.S_ITS ---
PROCEDURE: US PELVIC COMPLETE INDICATIONS: pelvic pain TECHNIQUE: Real-time scanning was performed of the pelvic organs, with image documentation. Additional endovaginal scanning was necessary due to incomplete visualization of the adnexal and endometrial structures by transabdominal scanning. COMPARISON: [facility], , US PELVIC COMPLETE, 07/13/2024, 16:19. FINDINGS: Uterus: Uterus is anteverted and normal in size at 8.5 x 6.2 x 4.1 cm. The myometrium is homogeneous. The endometrium measures 12 mm combined thickness. Trilaminar. Ovaries: The right ovary measures 3.8 x 2.6 x 2.6 cm, with a calculated ovarian volume of 13.4 cc. The left ovary measures 2.6 x 2.3 x 1.8 cm, with a calculated ovarian volume of 5.6 cc. The ovaries have a normal sonographic appearance. 2.2 cm right ovarian simple cyst. Less than 12 follicles noted in each ovary No adnexal masses are seen. Other: No pathologic free abdominal or pelvic fluid. IMPRESSION: Unremarkable ultrasound of the pelvis Approved by: Temo Arenas M.D. on 01/08/2025 at 11:59
== END ==
PROVIDERS: PCP Family Medicine; Referring Provider Obstetrics & Gynecology; Visit Provider Obstetrics & Gynecology
DX: N80.9 Endometriosis, unspecified (principal); N83.291 Other ovarian cyst, right side
CPT/HCPCS: 76830; 76856

== ENCOUNTER → 2025-01-25 19:43 | Outpatient (CLI) | payer OTHER, SELFPAY ==
[2020-01-26 13:40] VITALS: BMI 28.5
--- NOTE | 2025-01-25 19:45 | DI.MRI.S_ITS ---
PROCEDURE: MR KNEE LT WO CON INDICATIONS: Knee pain, joint effusion TECHNIQUE: Noncontrast sagittal PD fast spin echo and T2 fast spin echo with fat saturation, sagittal 3-D FLASH with fat saturation; coronal T1 spin echo and PD fast spin echo with fat saturation, and axial PD fast spin echo with fat saturation through the knee. COMPARISON: [facility], CR, XR KNEE LT 3V, 12/29/2024, 11:03. FINDINGS: Image quality: Excellent. Anterior cruciate ligament: Intact. Posterior cruciate ligament: Intact. Medial collateral ligament: Intact. Lateral collateral ligament: Intact. Medial meniscus: Intact. Lateral meniscus: Intact. Medial and lateral tendons: The semimembranosus tendon insertions appear intact. Visualized portions of the pes anserinus tendons appear normal. The popliteus tendon is intact. Iliotibial band appears normal. Anterior structures: Borderline patella clarke. The quadriceps and patellar tendons appear intact. Mildly congenitally shallow trochlear groove without patellar subluxation. No edema in the infrapatellar fat pad. Bones: No bone marrow contusions or fractures. Medial femorotibial cartilage: No focal cartilage defect. Lateral femorotibial cartilage: No focal cartilage defect. Patellofemoral cartilage: Partial-thickness cartilage loss at the median ridge of the patella. Soft tissues: Small joint effusion. Trace medial popliteal cyst. Visualized musculature is normal in bulk. IMPRESSION: 1. No acute trabecular bone injury. Cruciate and collateral ligaments are intact. No meniscal tear. 2. 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 3. 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 Borderline patella clarke. 4. Small joint effusion. Approved by: Konrad Vera M.D. on 01/26/2025 at 17:00
== END ==
LOC: MRI 19:43
PROVIDERS: PCP Family Medicine; Referring Provider Family Medicine; Visit Provider Family Medicine
DX: M22.42 Chondromalacia patellae, left knee (principal); M25.462 Effusion, left knee; M25.9 Joint disorder, unspecified; M25.562 Pain in left knee; G89.29 Other chronic pain
CPT/HCPCS: 73721

== ENCOUNTER 2025-03-22 10:47 | Day surgery (SDC) | payer OTHER, SELFPAY ==
[2020-01-26 13:40] VITALS: BMI 28.5
[2025-03-13 09:04] VITALS: BMI 28.0
--- NOTE | 2025-03-22 | PATH_ITS ---
[facility] Accession Number: [id number] No. of containers..01 Tissue . 01 Material submitted: . ovary - RIGHT OVARIAN FOSSA ADHESIONS . 01 Diagnosis: RIGHT OVARIAN FOSSA ADHESIONS: Scant glandular elements with electrocautery artifact in a background of mesothelial lined fibroconnective tissue. Findings favor benign peritoneal inclusion cysts. No definite endometriosis identified. Additional levels through the block are noncontributory. MRV 04/03/2025 1614 Local . 01 Electronically signed: . Valarie Rosa MD, Pathologist NPI- [id number] . 01 Gross description: . Received in formalin with two identifiers and right ovarian fossa adhesions, are two string-like soft tissue fragments measuring 3.1 and 2.1 cm in length and ranging in diameter from 0.1 to 0.3 cm. The fragments are submitted intact in A1. ([id number]) /MRV 03/29/2025 1932 Local . 01 Pathologist provided ICD-10: R10.12, N80.9 . 01 CPT . 797058 Specimen Comment: A courtesy copy of this report has been sent to [phone] Performed at: [address] [facility] [address], [place], [place] [id number] MD Dc Park MD Phone: [phone]
[2025-03-22 11:03] VITALS: BP 111/73; PULSE 65; RESP 16; TEMP 36.3; O2SAT 99
[2025-03-22 11:05] VITALS: BMI 28.0
[2025-03-22] MEDS: LACTATED RINGERS 1,000 ML 42 ML IV ×2 (11:23→13:45)
--- NOTE | 2025-03-22 12:15 | PM.PREOP ---
Pre-operative Note COVID-19 COVID-19 status: Not tested Interval Note History & Physical reviewed/Exam performed by Physician: Yes Changes to H&P: No
[2025-03-22] MEDS: SCOPOLAMINE 1 PATCH TOP (12:22)
--- NOTE | 2025-03-22 13:33 | SUR.OPER ---
Lithotomy on padded OR bed. [place] Pad Positioner under torso. Head on pillow, arms padded and tucked at sides. Legs secured in padded yellow fins stirrups. All pressure points padded
[2025-03-22] MEDS: BUPIVACAINE 0.5% W/ EPI (PF) 30 ML VIAL INJ (13:45)
[2025-03-22 14:25] VITALS: BP 105/57; PULSE 67; RESP 13; TEMP 36.3; O2SAT 98
[2025-03-22 14:30] VITALS: BP 108/57; PULSE 63; RESP 13; O2SAT 97
--- NOTE | 2025-03-22 14:32 | P.OP_ITS ---
Operative Date/Time/Diagnoses Date of procedure: 03/22/25 Time of procedure: 13:15 Pre-op diagnosis: Chronic pelvic pain Post-op diagnosis: other (Same as above, minimal pelvic adhesive disease) Procedure & Clinicians Procedure: Procedures Operation Date: 03/22/25 12:15 Actual Procedure Side Surgeon p diagnostic laparoscopy with excision of pelvic adhesions, Dmitry Willis MD s hysteroscopy Dmitry Willis MD Indications: Arlene returns today to review a recent ultrasound ordered because of pr ogressively painful menstrual cycles. In addition her chronic, constant pelvic pain has increased following her delivery in 2023 and patient does have a history of laparoscopically documented endometriosis in April of 2022. Because of the marked increase in her pain, pelvic ultrasound was performed on 01/04/2025 which showed: FINDINGS: Uterus: Uterus is anteverted and normal in size at 8.5 x 6.2 x 4.1 cm. The myometrium is homogeneous. The endometrium measures 12 mm combined thickness. Trilaminar. Ovaries: The right ovary measures 3.8 x 2.6 x 2.6 cm, with a calculated ovarian volume of 13.4 cc. The left ovary measures 2.6 x 2.3 x 1.8 cm, with a calculated ovarian volume of 5.6 cc. The ovaries have a normal sonographic appearance. 2.2 cm right ovarian simple cyst. Less than 12 follicles noted in each ovary No adnexal masses are seen. Other: No pathologic free abdominal or pelvic fluid. IMPRESSION: Unremarkable ultrasound of the pelvis The patient and her are planning to have another by IVF as they have fertilized embryos in liquid nitrogen storage. We had an extended discussion about potential causes for her chronic pelvic pain as well as other options for evaluation and treatment. Following those discussions patient proceed with laparoscopy with possible robotic assistance to evaluate for possible recurrent endometriosis with intention of excising and/or fulgurating any recurrent endometriosis. In addition will evaluate the endometrial cavity as part of her pre IVF evaluation. She presents today for her scheduled surgery. Surgeon: Dmitry Willis Anesthesia Type: General Operative Notes Findings: The uterus is normal in size and shape. There are some mature adhesions in the anterior cul-de-sac from patient's prior section. There was no evidence of endometriosis in either the anterior or posterior cul-de-sac. There is a normal amount of slightly yellowish peritoneal fluid noted in the posterior cul-de-sac. There is slight dilation of parametrial veins but no significant dilation of ovarian vasculature. There is a corpus luteum noted in the left ovary but the remainder of the ovary is normal in appearance. There was some vascular adhesions on the surface of the right ovary extending down into the ovarian fossa on the right. All of the adhesions were either coagulated with judicious use of monopolar current or excised from the right ovarian fossa. The ovary on the right was completely mobile at the end of the procedure. There was no other abnormality noted in the pelvis or the abdomen. The appendix appeared to be normal. The liver edge and gallbladder also appeared to be normal as did the diaphragms. There was no evidence of endometriosis either in the pelvis or involving the bowel or appendix. Closure Type: primary Specimen(s): other (Adhesions, right ovarian fossa) Applied: none Estimated blood loss (mL): 5 Blood products transfused: none Procedure in detail: With the patient under satisfactory general anesthesia in the modified dorsal lithotomy position, the perineum, vagina, and abdomen were prepped and draped for IUD removal and laparoscopic bilateral salpingectomy. A pre-surgical safety time-out was then taken in accordance with [facility] Main OR protocols. The umbilicus was then infiltrated with 0.5% Marcaine with epinephrine and 1 cm vertical incision was made in the inferior aspect of the umbilicus. Veress needle was used to insufflate the abdomen with carbon dioxide and once appropriately insufflated, 5 mm bladeless trocar and sleeve were inserted through the incision. Proper placement of the sleeve was confirmed with laparoscopic visualization and insufflation of the abdomen continued. A 2nd and 3rd 5 mm laparoscopic port were placed in the right and left mid quadrants using a similar technique and using a 3 puncture technique, the abdomen and pelvis were visualized with the findings as noted above. The right ovary was elevated with an atraumatic grasper and monopolar cautery was used to fulgurate the adhe sions on the surface of the ovary. Once those were remove the adhesions which extended into the ovarian fossa on the right side were excised with judicious use of monopolar cutting current. Specimen obtained was submitted as a pathologic specimen. The pelvis was surveyed once again and no abnormalities were noted aside from those mentioned above. The pelvis was then irrigated with sterile saline and reinspected a 3rd time with no additional findings noted. The pneumoperitoneum was then vented and the ports removed from the abdominal wall. Port incisions were then closed with 4-0 Monocryl using inverted interrupted stitches and skin glue was applied. Appropriate dressings were then applied and attention turned to performance of hysteroscopy. A bivalve speculum was inserted in the vagina and the cervix was easily visualized. The anterior lip of the cervix was then grasped with a single-tooth tenaculum and the endocervical canal was sequentially dilated to 7 mm using Hegar dilators. Hysteroscope was then placed into the endometrial cavity through the endocervical canal and fully surveyed. There were absolutely no mucosal or structural abnormalities of the endometrial cavity and both tubal ostia were seen easily. The hysteroscope was removed from the endometrial cavity and tenaculum was removed from the cervix. No bleeding was noted. Patient was then awakened, and transferred to the PACU for a period of observation after having tolerated the procedure well. Complications: none Post-operative Condition: stable Disposition: PACU Plan for aftercare: Routine postoperative care with follow-up planned for 2 weeks after surgery or as needed.
[2025-03-22 14:35] VITALS: BP 104/55; PULSE 64; RESP 16; O2SAT 98
[2025-03-22 14:40] VITALS: BP 108/61; PULSE 64; RESP 14; O2SAT 98
[2025-03-22 14:45] VITALS: BP 107/56; PULSE 62; RESP 14; O2SAT 98
[2025-03-22] MEDS: ACETAMINOPHEN IV 1,000 MG/100 ML VIAL 400 MG IV (14:47)
[2025-03-22] MEDS: ONDANSETRON 4 MG/2 ML INJ IV (14:50)
[2025-03-22] MEDS: OXYCODONE IR 5 MG TABLET PO (14:58)
== END 2025-03-22 15:34 | disposition home or self-care (01) ==
PROVIDERS: PCP Family Medicine; Referring Provider Obstetrics & Gynecology; Visit Provider Obstetrics & Gynecology
PROC: 0U5B4ZZ Destruction of Endometrium, Percutaneous Endoscopic Approach (ICD-10-PCS; CPT 58662; principal; 2025-03-22 12:15)
PROC: 0UDB8ZZ Extraction of Endometrium, Via Natural or Artificial Opening Endoscopic (ICD-10-PCS; CPT 58558; 2025-03-22 12:15)
DX: R10.12 Left upper quadrant pain (principal); N83.12 Corpus luteum cyst of left ovary; N99.4 Postprocedural pelvic peritoneal adhesions
CPT/HCPCS: 58660; 58555; 81025; J0131; J1100; J1885; J2250; J2405; J2704; J3010; J3490

== ENCOUNTER → 2025-07-03 12:44 | Outpatient (CLI) | payer OTHER, SELFPAY ==
[2020-01-26 13:40] VITALS: BMI 28.5
[2025-07-03 14:15] LABS: HCG Quantitative /Beta subunit 1147.7 mIU/mL
== END ==
PROVIDERS: PCP Family Medicine; Referring Provider Obstetrics & Gynecology; Visit Provider Obstetrics & Gynecology
DX: N91.2 Amenorrhea, unspecified (principal)
CPT/HCPCS: 36415; 84702

== ENCOUNTER → 2025-07-05 11:11 | Outpatient (CLI) | payer OTHER, SELFPAY ==
[2020-01-26 13:40] VITALS: BMI 28.5
[2025-07-05 12:34] LABS: HCG Quantitative /Beta subunit 2324.7 mIU/mL
== END ==
PROVIDERS: Obstetrics & Gynecology; PCP Family Medicine; Referring Provider Family Medicine; Visit Provider Physician Assistant Medical
DX: N91.2 Amenorrhea, unspecified (principal)
CPT/HCPCS: 36415; 84702

== ENCOUNTER 2025-07-11 17:01 | Emergency (ER) | payer OTHER, SELFPAY ==
[2020-01-26 13:40] VITALS: BMI 28.5
[2025-07-11] VITALS (7 sets, daily range): BP systolic 121–148; BP diastolic 67–71; PULSE 75–85; RESP 13–17; TEMP 36.6–36.8; O2SAT 93–100; BMI 27.4
--- NOTE | 2025-07-11 17:17 | DI.US.S_ITS ---
PROCEDURE: US OB <= 14 WEEKS FETUS INDICATIONS: left side pain, history of ectopic preg OUTSIDE/PRIOR DATING DATA: Last menstrual period (LMP): 05/30/2025. LMP-based estimated date of delivery (DEBBIE): 03/06/2026. First dating scan (date and location): 07/11/2025. Estimated date of delivery (DEBBIE) from first dating scan: 03/07/2026. The calculations are made using the ultrasound DEBBIE of 03/07/2026. TECHNIQUE: Real-time scanning was performed of the fetus and maternal pelvic organs, with image documentation. Endovaginal scanning was also performed to better visualize the fetus and maternal ovaries. COMPARISON: [facility], , OB <= 14 WEEKS FETUS, 03/20/2020, 17:13. FINDINGS: Embryo: There is an irregularly-shaped gestational sac seen within the uterus measuring 1.61 cm. No yolk sac visible Heart rate: Unable to assess Maternal organs: Ovaries are unremarkable. Left corpus luteum cyst measuring 1.8 cm. IMPRESSION: Intrauterine gestational sac with irregular contours and without visible yolk sac. Estimated gestational age of 5 weeks, 6 days based on mean gestational sac diameter. Approved by: Anju Jefferson M.D.,Ph.D. on 07/11/2025 at 19:26
[2025-07-11 18:03] LABS: Add Manual Diff / Slide Review NO; Hematocrit 37.3 % (36-46); Hemoglobin 12.5 g/dL (12.0-16.0); Lymphocytes Absolute Auto 2600 /uL (1100-4500); Mean Corpuscular HGB Conc 33.6 % (30-36); Mean Corpuscular Hemoglobin 29.5 PG (26-34); Mean Corpuscular Volume 87.7 fL (80-100); Platelet Count 344 X10^3/uL (150-400)
[2025-07-11 18:15] LABS: Alanine Aminotransferase 15 IU/L (<35); Albumin 4.5 g/dL (3.5-5.0); Albumin Globulin Ratio 1.4 (1.0-2.8); Alkaline Phosphatase 75 U/L (38-126); Blood Urea Nitrogen 10 mg/dL (7-17); Calcium 9.1 mg/dL (8.4-10.2); Carbon Dioxide 24 mmol/L (22-32); Chloride 103 mmol/L (98-107); Estimated Glomerular Filt Rate > 60 mL/min (>60); Globulin 3.2 g/dL (1.7-4.1); Glucose 99 mg/dL (70-99); HEMOLYSIS < 15 (0-50); Lipase 152 U/L (23-300); Potassium 4.0 mmol/L (3.4-5.1); Sodium 136 mmol/L (137-145); Total Protein 7.7 g/dL (6.3-8.2)
[2025-07-11 18:38] LABS: HCG Quantitative /Beta subunit 8384.9 mIU/mL
--- NOTE | 2025-07-11 20:24 | ED.ABDPAIN ---
HPI - Abdominal Pain General Chief Complaint: Abdominal Pain Stated Complaint: possible miscariage Time Seen by Provider: 07/11/25 18:03 Source: patient Mode of arrival: Ambulatory History of Present Illness HPI narrative: 35-year-old female with a history ectopic approximately 5 years ago that was medically terminated. Patient also has a history of IVF treatment approximately 2 years ago that was successful. Patient had an hCG test about 8 days ago and then 48 hours after which did double. Approximately 6 days ago, the patient started with some left lower sided abdominal cramping and pain that eventually subsided and she came in for just lab work. Yesterday the pain resumed and today the pain became worse to the point of coming into the ER today. She denies any spotting bleeding or any other symptoms. Related Data Previous Rx's ?Medication ?Instructions ?Recorded ketorolac 10 mg tablet 10 mg PO Q8H PRN pain #30 tabs 12/22/24 meloxicam 15 mg tablet 15 mg PO DAILY #90 tabs 02/15/25 oxycodone 5 mg tablet 5 mg PO Q4-6H PRN pain #15 tabs 03/22/25 Allergies Allergy/AdvReac Type Severity Reaction Status Date / Time chlorhexidine Allergy Intermediate ITCHING Verified 07/11/25 17:09 Iodinated Contrast Media Allergy Intermediate Hives Verified 07/11/25 17:09 metoclopramide (From Reglan) AdvReac Anxiety Verified 07/11/25 17:09 Review of Systems Review of Systems ROS Unobtainable: All systems reviewed & are unremarkable except as noted in HPI and below Patient History Medical History (Updated 07/11/25 @ 20:40 by David West MD) Cervicitis and endocervicitis Gestational diabetes mellitus (GDM) Encounter for supervision of resulting from assisted reproductive technology conceived through in vitro fertilization Dichorionic diamniotic twin gestation Infertility Hyperemesis gravidarum Endometriosis (~2021) Cellulitis Dog bite of forearm Healthy adult Surgical History (Updated 03/13/25 @ 09:09 by Perri El RN) History of (2023) Anesthesia History of hysteroscopy (~04/2022) H/O laparoscopy (~04/2022) [place] teeth extracted Family History Father Sick sinus syndrome History of heart disease Hypertension Mother Depression Fibromyalgia Mental health problem Grandfather Bone cancer Grandmother Diabetes mellitus Social History marital status: number of children: 1 household members: spouse and children lives independently: Yes caregiver/support person: Yes housing: house pets and animals: Yes (1 dog) education level: high school occupational status: unemployed current occupational exposures/hazards: No special hyun needs: No travel history: recent (domestic only) seatbelt use: always water heater temp set < 120 deg: Yes working smoke detector in home: Yes fire extinguisher in home: Yes carbon monox detector in home: Yes firearms in home: Yes firearms unloaded and locked: Yes do you feel safe at home: Yes second hand exposure: No alcohol intake: former substance use type: does not use during the past year weight has: other (significant gain due to hormones for IVF, but 16 lb loss due to hyperemesis) well-balanced diet: daily or most days daily servings fruits/ve or more times/day caffeine: Yes (small cup coffee in AM) Type(s) of exercise: other (active w/ small child) alcohol intake frequency: other Exam Narrative Exam Narrative: General: Patient appears to be in no acute distress, acting appropriately Head: normocephalic, atraumatic, HEENT: Pupils equal round reactive, eyes tracking well, neck supple, no JVD Heart: regular rate and rhythm, no murmurs, rubs, or gallops heard Lungs: clear to auscultation, no adventitious sounds Abdomen: soft , mildly tender to palpation left lower quadrant, nondistended, positive bowel sounds Neurological: no focal neurological signs, moving all extremities well, alert and oriented x3, Psych: good judgment ,good insight, mood is normal. Initial Vital Signs Initial Vital Signs: Vital Signs Temperature 98 F 07/11/25 17:09 Pulse Rate 85 07/11/25 17:09 Respiratory Rate 17 07/11/25 17:09 Blood Pressure 148/67 H 07/11/25 17:09 Pulse Oximetry 100 07/11/25 17:09 Oxygen Delivery Method Room Air 07/11/25 17:09 Course Orders Ordered: Discontinued Medications Ondansetron HCl (Ondansetron 4 Mg/2 Ml Inj) 4 mg IV NOW PRN PRN Reason: Nausea And Vomiting Ondansetron HCl (Ondansetron 4 Mg Odt) 4 mg PO NOW PRN PRN Reason: Nausea And Vomiting Consultations Consultation #1: consultation with Dr. Hopkins microbiology lab technician was done who mentioned that someone from clinic we will reach out to her in the a.m. for close OB follow-up Vital Signs Vital signs: Vital Signs - 8 hr 07/11/25 20:42 07/11/25 20:44 Temperature 98.2 F Pulse Rate 84 Respiratory Rate 13 Blood Pressure 124/71 Pulse Oximetry 98 Oxygen Delivery Method Room Air MDM - Abdominal Pain Lab Data 07/11/25 17:50 07/11/25 17:50 Labs: Lab Results 07/11/25 Range/Units 17:50 WBC 7.9 (4.5-11.0) X10^3/uL RBC 4.25 (4.0-5.2) X10^6/uL Hgb 12.5 (12.0-16.0) g/dL Hct 37.3 (36-46) % MCV 87.7 (80-100) fL MCH 29.5 (26-34) PG MCHC 33.6 (30-36) % RDW 12.6 (11.6-14.8) % Plt Count 344 (150-400) X10^3/uL Neut % (Auto) 57.4 (50-75) % Lymph % (Auto) 32.9 (25-40) % [place] % (Auto) 7.2 (3-14) % Eos % (Auto) 1.9 L (2-4) % Baso % (Auto) 0.6 (0-2) % Neut # (Auto) 4600 (8405-9579) /uL Lymph # (Auto) 2600 (2252-0927) /uL [place] # (Auto) 600 (0-900) /uL Eos # (Auto) 200 (0-450) /uL Baso # (Auto) 0 (0-100) /uL Sodium 136 L (137-145) mmol/L Potassium 4.0 (3.4-5.1) mmol/L Chloride 103 (98-107) mmol/L Carbon Dioxide 24 (22-32) mmol/L BUN 10 (7-17) mg/dL Creatinine 0.55 (0.52-1.04) mg/dL Estimated GFR > 60 (>60) mL/min BUN/Creatinine Ratio 18.2 (6-22) Glucose 99 (70-99) mg/dL Calcium 9.1 (8.4-10.2) mg/dL Total Bilirubin 0.2 (0.2-1.3) mg/dL AST 22 (14-36) IU/L ALT 15 (<35) IU/L Alkaline Phosphatase 75 (38-126) U/L Total Protein 7.7 (6.3-8.2) g/dL Albumin 4.5 (3.5-5.0) g/dL Globulin 3.2 (1.7-4.1) g/dL Albumin/Globulin Ratio 1.4 (1.0-2.8) Lipase 152 (23-300) U/L HCG, Quant 8384.9 mIU/mL Blood Type O Positive Imaging Data US - OB: Radiologist's Impression: Intrauterine gestational sac with irregular contours and without visible yolk sac. Estimated gestational age of 5 weeks, 6 days based on mean gestational sac diameter. MDM Narrative Medical decision making narrative: 35-year-old female with potential miscarriage. Patient reassured that there is no sign ectopic at this time. Patient will follow up with Ob this week for repeat ultrasound and evaluation. Advised to follow up sooner in ED if pain resumes or worsens. Discharge Plan Departure Patient Disposition: Home Clinical Impression: Left-sided pelvic pain Instructions: DI for Pelvic Pain Activity Restrictions/Additional Instructions: Follow-up with OBGYN as scheduled this week for a repeat ultrasound. Follow up sooner here in the ED if having new bleeding or pain worsens. Prescriptions: No Action ketorolac 10 mg tablet 10 mg PO Q8H PRN (Reason: pain) Qty: 30 0RF Rx Instructions: maximum total duration of 5 days from all oral, intranasal, or parenteral formulations oxycodone 5 mg tablet 5 mg PO Q4-6H PRN (Reason: pain) Qty: 15 0RF meloxicam 15 mg tablet 15 mg PO DAILY Qty: 90 0RF Referrals: Katelin Cordova MD [Primary Care Provider, Family Practice] Stand Alone Forms: Patient Portal/API
== END 2025-07-11 20:52 | disposition home or self-care (01) ==
PROVIDERS: Emergency Medicine; Emergency Provider Family Medicine; PCP Family Medicine
DX: O26.891 Other specified pregnancy related conditions, first trimester (principal); R10.22 Pelvic and perineal pain left side; Z3A.01 Less than 8 weeks gestation of pregnancy
CPT/HCPCS: 36415; 76801; 76817; 80053; 83690; 84702; 85025; 86900; 86901; 99283; 99284

== ENCOUNTER → 2025-07-27 14:40 | Outpatient (CLI) | payer OTHER, SELFPAY ==
[2020-01-26 13:40] VITALS: BMI 28.5
[2025-07-27 20:24] LABS: Urine N gonorrhoeae NOT DETECTED
[2025-07-27 20:30] LABS: Urine Chlamydia NOT DETECTED
== END ==
LOC: LAB 14:48
PROVIDERS: PCP Family Medicine; Visit Provider Obstetrics & Gynecology
DX: Z11.3 Encounter for screening for infections with a predominantly sexual mode of transmission (principal)
CPT/HCPCS: 87491; 87591

== ENCOUNTER → 2025-08-18 12:02 | Outpatient (CLI) | payer OTHER, SELFPAY ==
[2020-01-26 13:40] VITALS: BMI 28.5
[2025-08-18 12:57] LABS: Add Manual Diff / Slide Review NO; Hematocrit 34.8 % (36-46); Hemoglobin 11.9 g/dL (12.0-16.0); Lymphocytes Absolute Auto 1500 /uL (1100-4500); Mean Corpuscular HGB Conc 34.3 % (30-36); Mean Corpuscular Hemoglobin 30.1 PG (26-34); Mean Corpuscular Volume 87.7 fL (80-100); Platelet Count 332 X10^3/uL (150-400)
[2025-08-18 13:05] LABS: Hemoglobin A1C% w Est Avg Glu 4.5 % (4.0-6.0)
[2025-08-18 14:48] LABS: Hepatitis B Surface Antigen NEGATIVE s/c (NEGATIVE)
[2025-08-18 15:03] LABS: HIV 1 & 2 Ab/Ag 4th Gen Combo NEGATIVE (NEGATIVE); Hep C Virus Ab w/Reflex Quant NEGATIVE s/c (NEGATIVE)
== END ==
PROVIDERS: PCP Family Medicine; Referring Provider Obstetrics & Gynecology; Visit Provider Obstetrics & Gynecology
DX: O09.899 Supervision of other high risk pregnancies, unspecified trimester (principal)
CPT/HCPCS: 36415; 80055; 83036; 86787; 86803; 86850; 86900; 86901; 87086; 87389

== ENCOUNTER → 2025-08-22 14:36 | Outpatient (CLI) | payer OTHER, SELFPAY ==
[2020-01-26 13:40] VITALS: BMI 28.5
== END ==
PROVIDERS: PCP Family Medicine; Visit Provider Obstetrics & Gynecology
DX: N39.0 Urinary tract infection, site not specified (principal)
CPT/HCPCS: 87086

== ENCOUNTER → 2025-08-22 14:38 | Outpatient (CLI) | payer OTHER, SELFPAY ==
[2020-01-26 13:40] VITALS: BMI 28.5
[2025-08-22 15:48] LABS: Natera Collection Specimen Collected
== END ==
PROVIDERS: PCP Family Medicine; Referring Provider Family Medicine; Visit Provider Obstetrics & Gynecology
DX: O20.8 Other hemorrhage in early pregnancy (principal); Z36.0 Encounter for antenatal screening for chromosomal anomalies
CPT/HCPCS: 36415

== ENCOUNTER → 2025-09-11 07:04 | Outpatient (CLI) | payer OTHER, SELFPAY ==
[2020-01-26 13:40] VITALS: BMI 28.5
--- NOTE | 2025-09-11 07:05 | DI.US.S_ITS ---
PROCEDURE: US OB LIMITED INDICATIONS: ENLARGING SUBCHORIONIC HEMORRHAGE OUTSIDE/PRIOR DATING DATA: Working estimated delivery date of 03/06/2026 TECHNIQUE: Real-time scanning was performed of the fetus, with image documentation. Endovaginal scanning: Not performed COMPARISON: [facility], US, US OB <= 14 WEEKS FETUS, 07/27/2025, 15:13. [facility], US, US OB <= 14 WEEKS FETUS, 08/22/2025, 14:34. FINDINGS: A single living intrauterine gestation is present. Presentation: Transverse. Placenta: Placental position is left posteriorly, without previa. Amniotic fluid index: Subjectively within normal limits heart rate: 162 beats per minute. Maternal cervical canal: Not evaluated Clinically estimated gestational age: 14 weeks, 6 days Subchorionic hemorrhage posterior to the right of the gestational sac measuring 13.3 x 9.4 x 3.1 cm. IMPRESSION: Single live intrauterine consistent with 14 weeks and 6 days. Subchorionic hemorrhage measuring up to 13.3 cm. Recommend comparison to recent prior imaging. Dictated by: Ozzie Mann M.D. on 09/11/2025 at 16:40 Approved by: Ozzie Mann M.D. on 09/11/2025 at 16:43
== END ==
LOC: US 07:04
PROVIDERS: PCP Family Medicine; Referring Provider Family Medicine; Visit Provider Obstetrics & Gynecology
DX: O20.8 Other hemorrhage in early pregnancy (principal); Z3A.14 14 weeks gestation of pregnancy
CPT/HCPCS: 76815